=== PATIENT | male | born 1960 | race Caucasian/White ===

== ENCOUNTER 2019-04-03 10:09 | Emergency (ER) | payer BC ==
[2019-04-03] MEDS ORDERED: KETOROLAC 30 MG/ML 1 ML VIAL IM STA (11:01)
--- NOTE | 2019-04-03 11:08 | ED ---
General Adult HPI - General Chief complaint: Back Pain/Injury Stated complaint: back pain Time Seen by Provider: 04/03/19 10:27 Source: patient, RN notes reviewed Mode of arrival: ambulatory Limitations: no limitations - History of Present Illness Initial comments: 59-year-old male with a past medical history of cellulitis, eczema presents to the emergency determine for chief complaint of back pain. Patient states this has been ongoing for several years. States that several years ago he was picking up a bucket of ice when he injured the right lower back. States ever since then he has had right lower back pain on and off. 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 States that he frequently injures his back. States that he is here because he needs a note for work today. Patient states he just had blood work which was normal. States that he has seen primary care for this and was given stretches but has not seen a specialist. Denies any pain radiating in the legs. Denies any bladder or bowel changes. No numbness of the greater buttock. No difficulty ambulate. Patient states pain worsens with movement. States that he believes that his muscle spasms because he feels cramping when he moves. States that if he relaxes pain seems to get better.Patient has no other complaints at this time including shortness of breath, chest pain, abdominal pain, nausea or vomiting, headache, or visual changes. - Related Data Home Medications Medication Instructions Recorded Confirmed Cyclobenzaprine [Flexeril] 10 mg PO TID 04/03/19 04/03/19 Naproxen 500 mg PO BID PRN 04/03/19 04/03/19 Previous Rx's Medication Instructions Recorded Diazepam [Valium] 2 mg PO Q8HR PRN 3 Days #9 tab 04/03/19 Allergies Allergy/AdvReac Type Severity Reaction Status Date / Time No Known Allergies Allergy Verified 04/03/19 10:48 Review of Systems ROS Statement: Those systems with pertinent positive or pertinent negative responses have been documented in the HPI. ROS Other: All systems not noted in ROS Statement are negative. Past Medical History Past Medical History: Skin Disorder Additional Past Medical History / Comment(s): cellulitis r foot, exczema, History of Any Multi-Drug Resistant Organisms: MRSA Date of last positivie culture/infection: 2008 MDRO Source:: LEGS Additional Past Surgical History / Comment(s): LYMPH NODE REMOVEDbenign Past Psychological History: No Psychological Hx Reported Smoking Status: Former smoker Past Alcohol Use History: Occasional Past Drug Use History: None Reported - Past Family History Father Family Medical History: Coronary Artery Disease (CAD), Liver Disease Mother Family Medical History: Myocardial Infarction ([place]) General Exam Limitations: no limitations General appearance: alert, in no apparent distress Head exam: Present: atraumatic, normocephalic, normal inspection Eye exam: Present: normal appearance, PERRL, EOMI. Absent: scleral icterus, conjunctival injection, periorbital swelling ENT exam: Present: normal exam, mucous membranes moist Neck exam: Present: normal inspection, full ROM. Absent: tenderness, meningismus, lymphadenopathy Respiratory exam: Present: normal lung sounds bilaterally. Absent: respiratory distress, wheezes, rales, rhonchi, stridor Cardiovascular Exam: Present: regular rate, normal rhythm, normal heart sounds. Absent: systolic murmur, diastolic murmur, rubs, gallop, clicks Extremities exam: Present: normal capillary refill (Capillary refill less than 2 seconds, DP pulse 2+ in bilateral lower extremities. Patient does have eczema noted however no evidence for infection. States this eczema is chronic.) Back exam: Present: muscle spasm (Right-sided muscle spasm noted above SI joint). Absent: full ROM (Patient has flexion to about 60, pain with extension), tenderness (No significant tenderness over muscle spasm noted right lower back), CVA tenderness (R), CVA tenderness (L), vertebral tenderness (No lumbar or thoracic spine tenderness whatsoever) Neurological exam: Present: alert, oriented X3, CN II-XII intact Psychiatric exam: Present: normal affect, normal mood Course Vital Signs 04/03/19 10:20 Temperature 97.8 F Pulse Rate 107 H Respiratory 16 Rate Blood Pressure 160/84 O2 Sat by Pulse 99 Oximetry Medical Decision Making - Medical Decision Making 59-year-old male presents to the emergency department for a chief complaint of back pain. States this has been chronic for several years. States that this worsened at work when he lifted an 80 pound lid off of the drum. Patient states it is always in the right lower side of his back. Denies difficulty ambulating. States pain worsens with movement. Neurovascular status intact. No red flag symptoms such as bladder or bowel changes, saddle anesthesia, weakne ss of the lower extremities. Patient does have muscle spasm noted on the right lower back. No CVA tenderness. No thoracic or lumbar spine tenderness. No other trauma or falls. Patient states he just needs a note for work. Patient will be given work note as well as Toradol and Valium. Patient will be given a prescription of Valium because he is driving home. Patient will follow up with primary care in 1-2 days as well as environmental permitting specialist. He will return here if he has any worsening symptoms. Disposition Clinical Impression: Mechanical back pain Disposition: HOME SELF-CARE Condition: Good Instructions (If sedation given, give patient instructions): Lower Back E xercises (ED), Acute Low Back Pain (ED) Additional Instructions: Please continue to take naproxen as directed by your primary care provider. Take Valium but do not drive or operate machinery while taking Valium. Follow- up with primary care and Dr. Hannah tomorrow. Return here to the emergency Department if you're having any worsening symptoms including changes in bladder or bowel function or weakness of the lower extremities. Prescriptions: Diazepam [Valium] 2 mg PO Q8HR PRN 3 Days #9 tab PRN Reason: Pain Is patient prescribed a controlled substance at d/c from ED?: No Referrals: Austin Souza MD [Primary Care Provider] - 1-2 days Time of Disposition: 11:08
[2019-04-03 11:29] VITALS: BP 170/100; PULSE 104; RESP 18; TEMP 98.8
== END 2019-04-03 11:25 | disposition home or self-care (01) ==
LOC: EC 10:09
DX: M54.5 Low back pain (principal); M62.830 Muscle spasm of back; Z79.899 Other long term (current) drug therapy; Z87.891 Personal history of nicotine dependence
CPT/HCPCS: 99283; 96372; J1885

== ENCOUNTER 2019-04-13 10:59 | Emergency (ER) | payer BC ==
[2019-04-13] MEDS ORDERED: SODIUM CHLORIDE 0.9% 1,000 ML IV STA ×2 (11:58)
[2019-04-13 12:11] LABS: Basophils % (A) 0 %; Eosinophils # (A) 0.1 k/uL (0-0.7); Eosinophils % (A) 1 %; HCT 38.8 % (39.0-53.0); HGB 12.4 gm/dL (13.0-17.5); Lymphocytes # (A) 1.1 k/uL (1.0-4.8); Lymphocytes % (A) 7 %; MCH 27.7 pg (25.0-35.0); MCV 86.8 fL (80.0-100.0); Mean Platelet Volume 6.5; Monocytes # (A) 0.8 k/uL (0-1.0); Monocytes % (A) 5 %; Neutrophils # (A) 13.1 k/uL (1.3-7.7); Neutrophils % (A) 86 %; Platelet Count 590 k/uL (150-450); RBC 4.48 m/uL (4.30-5.90); RDW 13.2 % (11.5-15.5); WBC 15.3 k/uL (3.8-10.6)
[2019-04-13 12:31] LABS: ALT <6 U/L (21-72); AST 30 U/L (17-59); Alkaline Phosphatase 98 U/L (38-126); Anion Gap 9 mmol/L; Blood Urea Nitrogen 16 mg/dL (9-20); Calcium 9.6 mg/dL (8.4-10.2); Carbon Dioxide 26 mmol/L (22-30); Chloride 100 mmol/L (98-107); Glucose 87 mg/dL (74-99); Lipase 33 U/L (23-300); Phosphorus 3.2 mg/dL (2.5-4.5); Sodium 135 mmol/L (137-145); Total Bilirubin 0.9 mg/dL (0.2-1.3); Total Protein 8.3 g/dL (6.3-8.2)
[2019-04-13 12:37] LABS: Potassium 4.6 mmol/L (3.5-5.1)
--- NOTE | 2019-04-13 12:52 | ED ---
Abdominal Pain HPI - General Chief Complaint: Recheck/Abnormal Lab/Rx Stated Complaint: Rib Pain Time Seen by Provider: 04/13/19 11:00 Source: patient, RN notes reviewed, old records reviewed Mode of arrival: EMS - History of Present Illness Initial Comments: This is a 51-year-old male the ER for evaluation. Patient complaining of right- sided hip pain right-sided lower back pain abdominal pain and back pain. Patient states he does have history of back pain. There has a mechanical injury about 2 weeks ago which she believes increases pain in his lower back. His pain is getting progressively worse with some tingling in his leg. Denies specific trauma, thinks injury was lifting related. Denies any complaints of fevers no IV drug abuse no history of tattoos. Patient was seen in this emergency room about 10 days ago given medication to help with symptoms, symptoms are worsening. Patient is also been doing physical rehabilitation, trying to return to work. Patient states is symptoms are not improving. Just continuing to progress, worsen. Patient has no loss of bowel or bladder. MD Complaint: abdominal pain, flank pain (Right lower flank pain right back pain), other (Back pain and abdominal pain) -: week(s) Location: RLQ, R flank Radiation: back (Thoracic back) Migration to: epigastric Severity: moderate Severity scale (1-10): 4 Quality: cramping, aching, fullness Consistency: constant Improves With: nothing Worsens With: movement Context: recent injury (Lifting injury) Associated Symptoms: other (Tingling in left leg, rib pain right-sided) - Related Data Home Medications Medication Instructions Recorded Confirmed Cyclobenzaprine [Flexeril] 10 mg PO TID PRN 04/03/19 04/13/19 Acetaminophen [Tylenol 8 Hour] 650 mg PO Q8H PRN 04/13/19 04/13/19 Allergies Allergy/AdvReac Type Severity Reaction Status Date / Time No Known Allergies Allergy Verified 04/13/19 11:07 Review of Systems ROS Statement: Those systems with pertinent positive or pertinent negative responses have been documented in the HPI. ROS Other: All systems not noted in ROS Statement are negative. Past Medical History Past Medical History: Skin Disorder Additional Past Medical History / Comment(s): cellulitis r foot, exczema, History of Any Multi-Drug Resistant Organisms: MRSA Date of last positivie culture/infection: 2008 MDRO Source:: LEGS Additional Past Surgical History / Comment(s): LYMPH NODE REMOVEDbenign Past Psychological History: No Psychological Hx Reported Smoking Status: Former smoker Past Alcohol Use History: Occasional Past Drug Use History: None Reported - Past Family History Father Family Medical History: Coronary Artery Disease (CAD), Liver Disease Mother Family Medical History: Myocardial Infarction ([place]) General Exam General appearance: alert, in no apparent distress Head exam: Present: atraumatic, normocephalic, normal inspection Eye exam: Present: normal appearance, PERRL, EOMI. Absent: scleral icterus, conjunctival injection, periorbital swelling ENT exam: Present: normal exam, mucous membranes moist Neck exam: Present: normal inspection. Absent: tenderness, meningismus, lymphad enopathy Respiratory exam: Present: normal lung sounds bilaterally. Absent: respiratory distress, wheezes, rales, rhonchi, stridor Cardiovascular Exam: Present: normal rhythm, tachycardia, normal heart sounds. Absent: systolic murmur, diastolic murmur, rubs, gallop, clicks GI/Abdominal exam: Present: soft, normal bowel sounds. Absent: distended, tenderness, guarding, rebound, rigid Extremities exam: Present: normal inspection, full ROM, normal capillary refill. Absent: tenderness, pedal edema, joint swelling, calf tenderness Back exam: Present: normal inspection Neurological exam: Present: alert, oriented X3, CN II-XII intact Psychiatric exam: Present: normal affect, normal mood Skin exam: Present: warm, dry, intact, normal color. Absent: rash Course Vital Signs 04/13/19 04/13/19 04/13/19 11:01 11:03 11:30 Temperature 98.1 F Pulse Rate 102 H 101 H 102 H Respiratory 16 14 17 Rate Blood Pressure 161/89 161/89 161/89 O2 Sat by Pulse 97 98 96 Oximetry 04/13/19 04/13/19 04/13/19 12:00 12:30 13:00 Temperature Pulse Rate 99 95 Respiratory 28 H 18 Rate Blood Pressure 159/91 156/94 162/90 O2 Sat by Pulse 97 97 Oximetry 04/13/19 13:28 Temperature Pulse Rate 100 Respiratory 18 Rate Blood Pressure 155/99 O2 Sat by Pulse 98 Oximetry - Reevaluation(s) Reevaluation #1: 04/13/19 14:08 Medical record including prior ER ER visit is reviewed Reevaluation #2: 04/13/19 14:08 Spoke with radiology regarding findings of CAT scan, his findings are spoken with the patient, questions are answered Reevaluation #3: 04/13/19 14:08 Patient with adequate pain control currently Reevaluation #4: 04/13/19 14:08 No neurological findings noted Medical Decision Making - Medical Decision Making 51-year-old man the ER for evaluation of back pain rib pain hip pain. Left- sided tingling. Symptoms for a few weeks now. No help with rehabilitation, patient's found to have Significant T8-T9 paravertebral abscess with discitis, patient replace on broad-spectrum antibiotics transferred for neurosurgical evaluation - Lab Data Result diagrams: 04/13/19 11:07 04/13/19 11:07 Lab Results 04/13/19 04/13/19 04/13/19 Range/Units 11:07 11:07 11:07 WBC 15.3 H (3.8-10.6) k/uL RBC 4.48 (4.30-5.90) m/uL Hgb 12.4 L (13.0-17.5) gm/dL Hct 38.8 L (39.0-53.0) % MCV 86.8 (80.0-100.0) fL MCH 27.7 (25.0-35.0) pg MCHC 32.0 (31.0-37.0) g/dL RDW 13.2 (11.5-15.5) % Plt Count 590 H (150-450) k/uL Neutrophils % 86 % Lymphocytes % 7 % Monocytes % 5 % Eosinophils % 1 % Basophils % 0 % Neutrophils # 13.1 H (1.3-7.7) k/uL Lymphocytes # 1.1 (1.0-4.8) k/uL Monocytes # 0.8 (0-1.0) k/uL Eosinophils # 0.1 (0-0.7) k/uL Basophils # 0.0 (0-0.2) k/uL Sodium 135 L (137-145) mmol/L Potassium 4.6 (3.5-5.1) mmol/L Chloride 100 (98-107) mmol/L Carbon Dioxide 26 (22-30) mmol/L Anion Gap 9 mmol/L BUN 16 (9-20) mg/dL Creatinine 0.73 (0.66-1.25) mg/dL Est GFR (CKD-EPI)AfAm >90 (>60 ml/min/1.73 sqM) Est GFR (CKD-EPI)NonAf >90 (>60 ml/min/1.73 sqM) Glucose 87 (74-99) mg/dL Calcium 9.6 (8.4-10.2) mg/dL Phosphorus 3.2 (2.5-4.5) mg/dL Magnesium 2.0 (1.6-2.3) mg/dL Total Bilirubin 0.9 (0.2-1.3) mg/dL AST 30 (17-59) U/L ALT <6 L (21-72) U/L Alkaline Phosphatase 98 (38-126) U/L Troponin I <0.012 (0.000-0.034) ng/mL Total Protein 8.3 H (6.3-8.2) g/dL Albumin 4.0 (3.5-5.0) g/dL Lipase 33 (23-300) U/L - EKG Data -: EKG Interpreted by Me (EKG shows sinus rhythm rate of 96, OK 140, QRS 104, QTC 480) - Radiology Data Radiology results: report reviewed (CT chest abd pelvis shows diskitis, osteomyelitis, T8-9), image reviewed Disposition Clinical Impression: Discitis thoracic region, Osteomyelitis of thoracic spine, Epidural abscess Disposition: OTHER INSTITUTION NOT DEFINED Condition: Fair Is patient prescribed a controlled substance at d/c from ED?: No Referrals: Austin Souza MD [Primary Care Provider] - 1-2 days - Out of Hospital Transfer - Req. Specs Out of Hospital Transfer - Requested Specifics: Other Emergency Center ([facility])
[2019-04-13] MEDS ORDERED: PIPERACILLIN-TAZOBACTAM 3.375 GM in SODIUM CHLORIDE 0.9% 100 ML IVPB STA (13:42)
[2019-04-13] MEDS ORDERED: VANCOMYCIN IV PER PHARMACY 1 EACH MISC MISCELLANE PRN (13:42)
--- NOTE | 2019-04-13 13:42 | CT ---
EXAMINATION TYPE: CT ChestAbdPelvis w con DATE OF EXAM: 04/13/2019 COMPARISON: [facility] chest dated 08/05/2015 HISTORY: Upper Abdominal pain for 4-[address] DLP: 765.4 mGycm. Automated Exposure Control for Dose Reduction was Utilized. CONTRAST: CT scan of the thorax, abdomen and pelvis is performed with IV Contrast, patient injected with 100 mL of Isovue 300. FINDINGS: LUNGS: Azygos lobe is incidentally noted. Moderate centrilobular emphysema is seen. Bibasilar subsegm ental dependent atelectasis is present. The lungs are grossly clear, there is no concerning parenchym al mass or nodule identified. There is no pleural effusion or pneumothorax seen. The tracheobronch ial tree is patent. MEDIASTINUM: There are no greater than 1 cm hilar or mediastinal lymph nodes. No pericardial effusi on is seen. Moderate coronary calcifications are present. LIVER/GB: Geographic area of hypoattenuation is seen near the fissure for the falciform ligament, mos t commonly related to focal fatty infiltration. More diffuse mild degree hepatic steatosis is seen as there is low-attenuation of the hepatic parenchyma, limiting evaluation for hepatic masses. No leonid lithiasis is seen. PANCREAS: No significant abnormality is seen. SPLEEN: No significant abnormality is seen. ADRENALS: No significant abnormality is seen. KIDNEYS: There is a right lower pole exophytic 1.2 cm renal cyst. The kidneys enhance and excrete sym metrically without hydronephrosis. BOWEL: Numerous foci of air in the low pelvis appear to be intraluminal within bowel when correlated with coronal and sagittal images but would be better evaluated with contrast. There is diffuse thicke paola and hyperemia on the catheter body and fundus. GENITAL ORGANS: Prostate gland is heterogenous throughout. LYMPH NODES: Mildly enlarged right superficial inguinal lymph node measures 1.1 cm in short axis. OSSEOUS STRUCTURES: There is evidence of osteomyelitis/discitis of the T8-T9 intervertebral disc spac e with erosion of the endplates and small paravertebral abscess. The small fluid collection within th e right paravertebral space measures up to 1 cm and phlegmonous changes measuring up to 4 cm. Moderate multilevel degenerative changes throughout the spine are additionally present. OTHER: Extensive atherosclerosis of the abdominal aorta and its branches. IMPRESSION: 1. Osteomyelitis/discitis at T8-T9 with right paravertebral abscess measuring 1 cm and surrounding ph legmonous changes measuring 4 cm. Finding discussed with Cosme Espinoza at 1329 who will relay findings to Dr. Trent. 2. There are numerous foci of air in the low pelvis that appear to be within cluster loops of small b owel however CT pelvis with oral contrast is recommended to ensure no small foci of pneumoperitoneum. 3. Diffuse thickening of the stomach may relate to incomplete distention, gastritis or other etiology .
[2019-04-13] MEDS ORDERED: VANCOMYCIN 1,500 MG in SODIUM CHLORIDE 0.9% 250 ML IVPB STA (13:48)
[2019-04-13 16:17] VITALS: TEMP 98.4
[2019-04-13 17:59] VITALS: BP 150/84; PULSE 110; RESP 18
[2019-04-14] MEDS ORDERED: VANCOMYCIN 1,250 MG in SODIUM CHLORIDE 0.9% 250 ML IVPB SCH ×2
== END 2019-04-13 17:59 | disposition other institution (70) ==
LOC: EC 10:59
DX: M46.44 Discitis, unspecified, thoracic region (principal); M46.24 Osteomyelitis of vertebra, thoracic region; G06.2 Extradural and subdural abscess, unspecified; Z87.891 Personal history of nicotine dependence
CPT/HCPCS: 36415; 93005; 80053; 85652; 83690; 83735; 84100; 84484; 85025; 86140; 87040; 71260; 74177; 99285; 96365; 96367; 96366; 96361 ×3; J2543; J3370; Q9967

== ENCOUNTER → 2019-07-05 | Outpatient (CLI) | payer BC ==
[2019-07-05 12:27] LABS: Basophils # (A) 0.1 k/uL (0-0.2); Basophils % (A) 2 %; Eosinophils # (A) 0.7 k/uL (0-0.7); Eosinophils % (A) 11 %; HCT 44.2 % (39.0-53.0); HGB 14.5 gm/dL (13.0-17.5); Lymphocytes # (A) 1.2 k/uL (1.0-4.8); Lymphocytes % (A) 18 %; MCH 30.1 pg (25.0-35.0); MCHC 32.7 g/dL (31.0-37.0); MCV 91.9 fL (80.0-100.0); Mean Platelet Volume 6.3; Monocytes # (A) 0.5 k/uL (0-1.0); Monocytes % (A) 8 %; Neutrophils # (A) 3.9 k/uL (1.3-7.7); Neutrophils % (A) 58 %; Platelet Count 292 k/uL (150-450); RBC 4.81 m/uL (4.30-5.90); RDW 13.8 % (11.5-15.5); WBC 6.6 k/uL (3.8-10.6)
[2019-07-05 15:01] LABS: Erythrocyte Sedimentation Rate 8 mm/hr (0-15)
[2019-07-05 18:57] LABS: African American GFR (CKD) 85.3 (60.0-200.0); Anion Gap 6.8 mmol/L (4.00-12.00); BUN/Creat Ratio 24.55 Ratio (12.00-20.00); C Reactive Protein 0.5 mg/dL (0.0-0.8); Calcium 9.9 mg/dL (8.7-10.3); Carbon Dioxide 26.2 mmol/L (21.6-31.8); Non-African American GFR(CKD) 73.6 (60.0-200.0); Potassium 4.8 mmol/L (3.5-5.5)
== END | disposition home or self-care (01) ==
LOC: LABWHC1 11:33
PROVIDERS: ATTEND Internal Medicine Infectious Disease
DX: M46.20 Osteomyelitis of vertebra, site unspecified (principal)
CPT/HCPCS: 36415; 80048; 85025; 85652; 86140

== ENCOUNTER 2021-10-21 07:19 | Day surgery (SDC) | payer BC ==
[2021-10-16 13:08] VITALS: BMI 24.4
[2021-10-21 08:10] VITALS: RESP 18; TEMP 97.4
[2021-10-21] MEDS ORDERED: SODIUM CHLORIDE 0.9% 500 ML 500 ML IV ONE (08:10)
[2021-10-21] MEDS: BENZOCAINE SPRAY 1 CAN MUCOUS MEM ONE ×2 (09:06→09:10)
[2021-10-21] MEDS ORDERED: MIDAZOLAM 2 MG/2 ML VIAL IV ONE (09:10)
[2021-10-21] MEDS ORDERED: fentaNYL (PF) 50 MCG/ML 2 ML AMP IV ONE (09:10)
[2021-10-21 10:21] VITALS: BP 146/64; PULSE 67
--- NOTE | 2021-10-22 08:23 | ECHOT ---
TRANSESOPHAGEAL ECHOCARDIOGRAM INDICATION: Aortic regurgitation. PROCEDURE NOTE: After obtaining informed consent, transesophageal echocardiogram is performed in left lateral position using an Omniplane probe. Local and IV sedation was obtained using Xylocaine spray, intravenous Versed and fentanyl. Patient tolerated the procedure well without any obvious immediate complications. Patient received moderate conscious sedation. Total sedation time was 10 minutes. Color Doppler, 2D spectral analysis has been performed. FINDINGS: 1. Aortic valve is a 3-leaflet valve and appears calcified and thickened with mild prolapse at the non-coronary cusp. There is severe aortic regurgitation noted. There is mild aortic stenosis with a valve area of 1.3 cm2 by planimetry. Aortic root measures about 3.6 cm. Mitral valve shows mild mitral regurgitation. Tricuspid valve shows mild tricuspid regurgitation. 2. There is no [id number] shunt by color-flow Doppler, but there is evidence of [id number] shunt by agitated saline contrast study. 3. Left atrium appears mildly enlarged. Right atrium and right ventricle seem within normal limits. Left ventricle has normal size and systolic function. CONCLUSIONS: 1. 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 2. Left ventricle has normal size and systolic function. 3. There is mild mitral regurgitation noted. MMODL / IJN: [id number] /
== END 2021-10-21 10:30 | disposition home or self-care (01) ==
LOC: CATHCVL 07:19
PROVIDERS: ATTEND Internal Medicine Cardiovascular Disease
DX: I08.3 Combined rheumatic disorders of mitral, aortic and tricuspid valves (principal); Z20.822 Contact with and (suspected) exposure to COVID-19; I10 Essential (primary) hypertension; Z82.49 Family history of ischemic heart disease and other diseases of the circulatory system; Z72.0 Tobacco use; Z79.899 Other long term (current) drug therapy
CPT/HCPCS: 93312; 93320; 93325; 87635; J2250; J3010

== ENCOUNTER 2024-04-02 14:37 | Emergency (ER) | payer BC ==
[2024-04-02 15:18] VITALS: RESP 18
[2024-04-02] MEDS: LIDOCAINE 4% PATCH TOPICAL ONE (15:49)
[2024-04-02] MEDS: KETOROLAC 15 MG/ML 1 ML VIAL IVP STA (15:50)
--- NOTE | 2024-04-02 15:50 | ED ---
Back Pain HPI - General Chief Complaint: Back Pain/Injury Stated Complaint: low back pain Time Seen by Provider: 04/02/24 15:08 Source: patient, RN notes reviewed Mode of arrival: ambulatory Limitations: no limitations - History of Present Illness Initial Comments: This is a 64-year-old male who presents to the emergency department for low back pain. Symptoms started 3 days ago. Denies any injuries but states that he does a lot of bending and lifting. Denies any loss of bowel/bladder control or saddle anesthesia. He saw his primary care provider when symptoms began 3 days ago and was started on muscle relaxants and steroids. He also had an x-ray that he states was unremarkable. Does not believe that he has been getting any worse, but states that he is not improving. He was subsequently advised to come to the emergency department for further evaluation. He is concerned that he had a spinal abscess removed several years ago and wants to make sure that it is not recurring. This was in the thoracic spine. Denies any fevers/chills. - Related Data Home Medications Medication Instructions Recorded Confirmed carvediloL [Coreg] 12.5 mg PO BID 10/16/21 10/21/21 Previous Rx's Medication Instructions Recorded Ketorolac [Toradol] 10 mg PO Q6HR PRN #15 tab 04/02/24 Lidocaine 5% Patch [Lidoderm 5% 1 patch TOPICAL DAILY PRN #30 patch 04/02/24 Patch] Orphenadrine [Norflex] 100 mg PO Q12H PRN #20 tab 04/02/24 Allergies Allergy/AdvReac Type Severity Reaction Status Date / Time No Known Allergies Allergy Verified 04/02/24 14:41 Review of Systems ROS Statement: Those systems with pertinent positive or pertinent negative responses have been documented in the HPI. ROS Other: All systems not noted in ROS Statement are negative. Past Medical History Past Medical History: Hypertension, Osteoarthritis (OA), Skin Disorder, Sleep Apnea/CPAP/BIPAP Additional Past Medical History / Comment(s): exczema, heart murmur, hx. of endocarditis 2014, used to use CPAP, hx. of gastric ulcer History of Any Multi-Drug Resistant Organisms: MRSA Date of last positivie culture/infection: 2018 MDRO Source:: spine Past Surgical History: Back Surgery Additional Past Surgical History / Comment(s): LYMPH NODE REMOVEDbenign, had spinal/back surgery related to MRSA infection, surg. for gastric ulcer Past Anesthesia/Blood Transfusion Reactions: No Reported Reaction Past Psychological History: No Psychological Hx Reported Smoking Status: Current every day smoker Past Alcohol Use History: Occasional Past Drug Use History: None Reported - Past Family History Father Family Medical History: Coronary Artery Disease (CAD), Liver Disease Mother Family Medical History: Myocardial Infarction (AL) General Exam Limitations: no limitations General appearance: alert, in no apparent distress Head exam: Present: atraumatic, normocephalic, normal inspection Respiratory exam: Present: normal lung sounds bilaterally. Absent: respiratory distress, wheezes, rales, rhonchi, stridor Cardiovascular Exam: Present: regular rate, normal rhythm, normal heart sounds. Absent: systolic murmur, diastolic murmur, rubs, gallop, clicks Back exam: Present: tenderness (Lower lumbar spine) Neurological exam: Present: alert, oriented X3, CN II-XII intact Psychiatric exam: Present: normal affect, normal mood Skin exam: Present: warm, dry, intact, normal color. Absent: rash Course Vital Signs 04/02/24 04/02/24 14:38 17:25 Temperature 98.2 F Pulse Rate 95 83 Respiratory 18 18 Rate Blood Pressure 204/120 164/90 O2 Sat by Pulse 99 96 Oximetry Medical Decision Making - Medical Decision Making This is a 64 year old male who presents to the emergency department for lower back pain. Was pt. sent in by a medical professional or institution? @ -No Did you speak to anyone other than the patient for history? @ -No Did you review nursing and triage notes? @ -Yes, and I agree, it is accurate with regards to the patient's symptoms. Were old charts reviewed? @ -No Differential Diagnosis? @ -Differential Back Pain: Strain, zoster, cauda equina syndrome, epidural abscess, vertebral osteomyel itis, discitis, fracture, subluxation, disc herniation, DJD, spinal stenosis, dissection, AAA, pancreatitis, peptic ulcer disease, pyelonephritis, kidney stone, this is not meant to be an all-inclusive list. EKG interpreted by me (3pts min.)? @ -Not obtained X-rays interpreted by me (1pt min.)? @ -Not obtained CT interpreted by me (1pt min.)? @ -CT scan of the lumbar spine obtained. My interpretation identifies no acute fractures. U/S interpreted by me (1pt. min.)? @ -Not obtained What testing was considered but not performed? (CT, X-rays, U/S, labs)? Why? @ -None What meds were considered but not given? Why? @ -None Did you discuss the management of the patient with other professionals? @ -No Did you reconcile home meds? @ -No Was smoking cessation discussed for >3mins.? @ -No Was critical care preformed (if so, how long)? @ -No Were there social determinants of health that impacted care today? How? (Homelessness, low income, unemployed, alcoholism, drug addiction, transportation, low edu. Level, literacy, decrease access to med. care, penitentiary, rehab)? @ -No Was there de-escalation of care discussed even if they declined? (Discuss DNR or withdrawal of care, Hospice)? @ -No What co-morbidities impacted this encounter? (DM, HTN, Smoking, COPD, CAD, Cancer, CVA, Hep., AIDS, mental health diagnosis, sleep apnea, morbid obesity)? @ -Osteoarthritis Was patient admitted / discharged? @ -Discharged. Lab work demonstrates mild leukocytosis and a mild elevation in CRP. CT scan of the lumbar spine obtained demonstrating no evidence of vertebral compression or collapse. There are also no specific findings of discitis osteomyelitis at this time. He does have multiple degenerative changes which we discussed is likely contributing to his pain. Patient treated with Toradol, Decadron, Norflex, and a lidocaine patch with significant relief in symptoms. Discussed changing at home medications to see if that is more ef fective. Patient requested to proceed with Norflex as provided here which he felt was much more beneficial than the Flexeril he has at home. Prescription for Toradol, Norflex, and lidocaine patches provided with dosing instructions reviewed. Advised close follow-up with his primary care provider. Patient discharged home in stable condition. Undiagnosed new problem with uncertain prognosis? @ -None Drug Therapy requiring intensive monitoring for toxicity (Heparin, Nitro, Insulin, Cardizem)? @ -None Were any procedures done? @ -None Diagnosis/symptom? @ -Lumbar strain Acute, or Chronic, or Acute on Chronic? @ -Acute Uncomplicated (without systemic symptoms) or Complicated (systemic symptoms)? @ -Uncomplicated Side effects of treatment? @ -None Exacerbation, Progression, or Severe Exacerbation] @ -Not applicable Poses a threat to life or bodily function? @ -No Return precautions reviewed in depth, the patient is instructed to return to the emergency department with any new, worsening, or concerning symptoms. Patient verbalized understanding. This case was discussed in detail with the attending ED physician, Dr. Parham. Presentation, findings, and treatment plan discussed in detail as well. - Lab Data Result diagrams: 04/02/24 15:44 04/02/24 15:44 Lab Results 04/02/24 04/02/24 04/02/24 Range/Units 15:44 15:44 15:44 WBC 12.0 H (3.8-10.6) k/uL RBC 5.13 (4.30-5.90) m/uL Hgb 15.7 (13.0-17.5) gm/dL Hct 47.8 (39.0-53.0) % MCV 93.1 (80.0-100.0) fL MCH 30.5 (25.0-35.0) pg MCHC 32.8 (31.0-37.0) g/dL RDW 12.6 (11.5-15.5) % Plt Count 203 (150-450) k/uL MPV 6.8 Neutrophils % 83 % Lymphocytes % 7 % Monocytes % 7 % Eosinophils % 1 % Basophils % 0 % Neutrophils # 10.0 H (1.3-7.7) k/uL Lymphocytes # 0.9 L (1.0-4.8) k/uL Monocytes # 0.8 (0-1.0) k/uL Eosinophils # 0.1 (0-0.7) k/uL Basophils # 0.0 (0-0.2) k/uL Sodium 132 L (137-145) mmol/L Potassium 4.6 (3.5-5.1) mmol/L Chloride 101 (98-107) mmol/L Carbon Dioxide 21 L (22-30) mmol/L Anion Gap 10 mmol/L BUN 18 (9-20) mg/dL Creatinine 0.78 (0.66-1.25) mg/dL Est GFR (CKD-EPI)AfAm >90 (>60 ml/min/1.73 sqM) Est GFR (CKD-EPI)NonAf >90 (>60 ml/min/1.73 sqM) Glucose 81 (74-99) mg/dL Plasma Lactic Acid Arjun 1.1 (0.7-2.0) mmol/L Calcium 9.1 (8.4-10.2) mg/dL Total Bilirubin 1.1 (0.2-1.3) mg/dL AST 27 (17-59) U/L ALT 17 (4-49) U/L Alkaline Phosphatase 51 (38-126) U/L C-Reactive Protein 5.9 H (<1.0) mg/dL Total Protein 7.6 (6.3-8.2) g/dL Albumin 4.2 (3.5-5.0) g/dL Urine Color Urine Appearance (Clear) Urine pH (5.0-8.0) Ur Specific Willis (1.001-1.035) Urine Protein (Negative) Urine Glucose (UA) (Negative) Urine Ketones (Negative) Urine Blood (Negative) Urine Nitrite (Negative) Urine Bilirubin (Negative) Urine Urobilinogen (<2.0) mg/dL Ur Leukocyte Esterase (Negative) 04/02/24 Range/Units 17:04 WBC (3.8-10.6) k/uL RBC (4.30-5.90) m/uL Hgb (13.0-17.5) gm/dL Hct (39.0-53.0) % MCV (80.0-100.0) fL MCH (25.0-35.0) pg MCHC (31.0-37.0) g/dL RDW (11.5-15.5) % Plt Count (150-450) k/uL MPV Neutrophils % % Lymphocytes % % Monocytes % % Eosinophils % % Basophils % % Neutrophils # (1.3-7.7) k/uL Lymphocytes # (1.0-4.8) k/uL Monocytes # (0-1.0) k/uL Eosinophils # (0-0.7) k/uL Basophils # (0-0.2) k/uL Sodium (137-145) mmol/L Potassium (3.5-5.1) mmol/L Chloride (98-107) mmol/L Carbon Dioxide (22-30) mmol/L Anion Gap mmol/L BUN (9-20) mg/dL Creatinine (0.66-1.25) mg/dL Est GFR (CKD-EPI)AfAm (>60 ml/min/1.73 sqM) Est GFR (CKD-EPI)NonAf (>60 ml/min/1.73 sqM) Glucose (74-99) mg/dL Plasma Lactic Acid Arjun (0.7-2.0) mmol/L Calcium (8.4-10.2) mg/dL Total Bilirubin (0.2-1.3) mg/dL AST (17-59) U/L ALT (4-49) U/L Alkaline Phosphatase (38-126) U/L C-Reactive Protein (<1.0) mg/dL Total Protein (6.3-8.2) g/dL Albumin (3.5-5.0) g/dL Urine Color Colorless Urine Appearance Clear (Clear) Urine pH 6.5 (5.0-8.0) Ur Specific Willis 1.006 (1.001-1.035) Urine Protein Negative (Negative) Urine Glucose (UA) Negative (Negative) Urine Ketones Negative (Negative) Urine Blood Negative (Negative) Urine Nitrite Negative (Negative) Urine Bilirubin Negative (Negative) Urine Urobilinogen <2.0 (<2.0) mg/dL Ur Leukocyte Esterase Negative (Negative) - Radiology Data Radiology results: report reviewed, image reviewed Disposition Clinical Impression: Strain of lumbar region Disposition: HOME SELF-CARE Instructions (If sedation given, give patient instructions): Acute Low Back Pain (ED) Additional Instructions: Return to the emergency department with any new, worsening, or concerning symptoms. Take the Toradol with Tylenol as needed for pain relief. If you choose to take the Toradol, do not take any other anti-inflammatories such as ibuprofen, take one or the other. You can try taking the Norflex twice daily in place of the cyclobenzaprine, the other muscle relaxant you were prescribed. However, if you find the cyclobenzaprine was more effective, you can begin taking that one again instead. Avoid taking them together and be aware that they will make you drowsy. You can also apply the lidocaine patches daily. Follow up with your primary care provider in 1-2 days. Prescriptions: Lidocaine 5% Patch [Lidoderm 5% Patch] 1 patch TOPICAL DAILY PRN #30 patch PRN Reason: Pain Orphenadrine [Norflex] 100 mg PO Q12H PRN #20 tab PRN Reason: Pain Ketorolac [Toradol] 10 mg PO Q6HR PRN #15 tab PRN Reason: Pain Is patient prescribed a controlled substance at d/c from ED?: No Referrals: Austin Souza MD [Primary Care Provider] - 1-2 days Time of Disposition: 18:39
[2024-04-02] MEDS: DEXAMETHASONE SOD PHOSPHATE 10 MG/ML 1 ML VIAL IVP STA (15:53)
[2024-04-02 15:54] LABS: Basophils % (A) 0 %; Eosinophils # (A) 0.1 k/uL (0-0.7); Eosinophils % (A) 1 %; HCT 47.8 % (39.0-53.0); HGB 15.7 gm/dL (13.0-17.5); Lymphocytes # (A) 0.9 k/uL (1.0-4.8); Lymphocytes % (A) 7 %; MCH 30.5 pg (25.0-35.0); MCHC 32.8 g/dL (31.0-37.0); MCV 93.1 fL (80.0-100.0); Mean Platelet Volume 6.8; Monocytes # (A) 0.8 k/uL (0-1.0); Monocytes % (A) 7 %; Neutrophils % (A) 83 %; Platelet Count 203 k/uL (150-450); RBC 5.13 m/uL (4.30-5.90); RDW 12.6 % (11.5-15.5)
[2024-04-02] MEDS: ORPHENADRINE 30 MG/ML 2 ML VIAL IVP STA (15:54)
[2024-04-02 16:11] LABS: ALT 17 U/L (4-49); African American GFR (CKD) >90 (>60 ml/min/1.73 sqM); Anion Gap 10 mmol/L; Blood Urea Nitrogen 18 mg/dL (9-20); C Reactive Protein 5.9 mg/dL (<1.0); Calcium 9.1 mg/dL (8.4-10.2); Carbon Dioxide 21 mmol/L (22-30); Chloride 101 mmol/L (98-107); Glucose 81 mg/dL (74-99); Non-African American GFR(CKD) >90 (>60 ml/min/1.73 sqM); Sodium 132 mmol/L (137-145); Total Bilirubin 1.1 mg/dL (0.2-1.3)
[2024-04-02 16:20] LABS: AST 27 U/L (17-59); Albumin 4.2 g/dL (3.5-5.0); Alkaline Phosphatase 51 U/L (38-126); Potassium 4.6 mmol/L (3.5-5.1); Total Protein 7.6 g/dL (6.3-8.2)
[2024-04-02 17:28] LABS: Appearance,Urine Clear (Clear); Bilirubin,Urine Negative (Negative); Blood,Urine Negative (Negative); Color,Urine Colorless; Glucose,Urine (UA) Negative (Negative); Ketones,Urine Negative (Negative); Leukocyte Esterase,Urine Negative (Negative); Nitrite,Urine Negative (Negative); PH, Urine 6.5 (5.0-8.0); Protein,Urine Negative (Negative); Specific Gravity,Urine 1.006 (1.001-1.035); Urobilinogen,Urine <2.0 mg/dL (<2.0)
--- NOTE | 2024-04-02 18:28 | CT ---
EXAMINATION TYPE: CT lumbar spine w con DATE OF EXAM: 04/02/2024 COMPARISON: 08/07/2013 HISTORY: 64-year-old male Pain, hx of osteomyelitis with spinal abscess TECHNIQUE: Contiguous axial scanning of the lumbar spine performed with IV Contrast, patient injected with 100 mL of Isovue 300. Delayed images through the kidneys were obtained. Coronal/sagittal recons tructions performed. CT DLP: 686 mGycm Automated exposure control for dose reduction was used. FINDINGS: There is a small hiatal hernia. 2.1 cm cortical cyst posterior right kidney. Degenerative spurring at the bilateral SI joints. 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 Superimposed mild and moderate degenerative disc disease with desiccated, narrowed, and bulging discs . Scattered ligamentum flavum thickening and hypertrophic facet arthropathy is also present. Degenerative trace grade 1 retrolisthesis L3-L4. Remaining alignment is maintained. Vertebral body he ights are preserved. No endplate destruction is identified. Bulging disks contribute to a mild overall spinal canal stenosis at L2/L3, at least moderate at L3-L4 , possible severe at L4-L5 and [id number] at L5-S1. On the left, changes result in moderate neural foraminal stenoses from L2 through S1 levels.. On the right, changes result in moderate neural foraminal stenoses from L3 through S1 levels. Disc osteophyte complex may abuts the exiting bilateral L5 nerve roots at L5-S1 and the extraforamina l left L4 nerve root at L4-L5 IMPRESSION: 1. NO VERTEBRAL COMPRESSION COLLAPSE. NO SPECIFIC FINDINGS OF DISCITIS OSTEOMYELITIS AT THIS TIME. TH ERE IS HYPERTROPHIC FACET ARTHROPATHY WITH DEGENERATIVE GRADE 1 RETROLISTHESIS AT L3-L4. 2. 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 3. CHANGES RESULT IN POSSIBLE SEVERE SPINAL CANAL STENOSIS AT L4-L5, AT LEAST MODERATE AT L3-L4, MILD -TO-MODERATE AT L5-S1, AND MILD AT L2-L3. 4. VARIABLE MODERATE NEUROFORAMINAL STENOSES OUTLINED ABOVE. 5. DISC OSTEOPHYTE COMPLEX MAY ABUT THE EXITING BILATERAL L5 NERVE ROOTS AT L5-S1 WELL THE EXTR AFORAMINAL LEFT L4 NERVE ROOT AT L4-L5. 6. BAASTRUP'S DISEASE.
[2024-04-02] MEDS: traMADol 50 MG STARTER PACK 3 TAB BTL PO STA (18:51)
[2024-04-02 19:17] VITALS: BP 190/90; PULSE 66; TEMP 98.1
== END 2024-04-02 18:55 | disposition home or self-care (01) ==
LOC: EC 14:37
DX: S39.012A Strain of muscle, fascia and tendon of lower back, initial encounter (principal); F17.200 Nicotine dependence, unspecified, uncomplicated; X50.0XXA Overexertion from strenuous movement or load, initial encounter
CPT/HCPCS: 36415; 80053; 83605; 85025; 86140; 81003; 72132; 99284; 96374; 96375 ×2; J1100; J2360; J1885; Q9967

== ENCOUNTER 2024-04-08 17:53 | Inpatient (IN) | payer BC ==
[2024-04-08] MEDS: ACETAMINOPHEN TAB 500 MG TAB PO STA (18:22)
[2024-04-08] MEDS: SODIUM CHLORIDE 0.9% 1,000 ML IV STA ×4 (18:22→20:36)
[2024-04-08] MEDS: IBUPROFEN 600 MG TAB PO STA (18:22)
[2024-04-08 19:02] LABS: Basophils % (A) 0 %; Eosinophils % (A) 0 %; HGB 14.2 gm/dL (13.0-17.5); Lymphocytes # (A) 0.2 k/uL (1.0-4.8); Lymphocytes % (A) 2 %; MCH 30.7 pg (25.0-35.0); MCHC 34.6 g/dL (31.0-37.0); MCV 88.8 fL (80.0-100.0); Mean Platelet Volume 7.5; Monocytes # (A) 1.1 k/uL (0-1.0); Monocytes % (A) 8 %; Neutrophils # (A) 11.7 k/uL (1.3-7.7); Neutrophils % (A) 90 %; Platelet Count 186 k/uL (150-450); RBC 4.62 m/uL (4.30-5.90); RDW 12.5 % (11.5-15.5)
[2024-04-08 19:12] LABS: ALT 50 U/L (4-49); AST 94 U/L (17-59); African American GFR (CKD) 54 (>60 ml/min/1.73 sqM); Albumin 3.3 g/dL (3.5-5.0); Alkaline Phosphatase 141 U/L (38-126); Anion Gap 12 mmol/L; Blood Urea Nitrogen 26 mg/dL (9-20); Calcium 8.4 mg/dL (8.4-10.2); Carbon Dioxide 18 mmol/L (22-30); Chloride 91 mmol/L (98-107); Glucose 98 mg/dL (74-99); INR 1.2 (<1.2); Non-African American GFR(CKD) 47 (>60 ml/min/1.73 sqM); Potassium 4.6 mmol/L (3.5-5.1); Prothrombin Time 13.1 sec (10.0-12.5); Sodium 121 mmol/L (137-145); Total Bilirubin 1.3 mg/dL (0.2-1.3); Total Protein 6.2 g/dL (6.3-8.2)
--- NOTE | 2024-04-08 19:16 | XR ---
EXAMINATION TYPE: XR chest 2V DATE OF EXAM: 04/08/2024 6:49 PM CLINICAL INDICATION:Male, 64 years old with history of Weakness; [facility] COMPARISON: Chest radiographs from 08/05/2015 TECHNIQUE: XR chest 2V Frontal and lateral views of the chest. FINDINGS: Lungs/Pleura: There is no evidence of pleural effusion, focal consolidation, or pneumothorax. Azygou s fissure noted. Pulmonary vascularity: Unremarkable. Heart/mediastinum: Cardiomediastinal silhouette is unremarkable. Musculoskeletal: No acute osseous pathology. IMPRESSION: Low lung volumes with a generalized hazy appearance which could represent atelectasis versus pulmonar y edema correlate with serum BNP.
[2024-04-08 19:20] LABS: NT-Pro-B-Type Natriuretic Pept 2830 pg/mL
[2024-04-08] MEDS ORDERED: VANCOMYCIN IV PER PHARMACY 1 EACH MISC MISCELLANE PRN (19:32)
[2024-04-08] MEDS ORDERED: FLUTICASONE 50MCG/SPRAY NASAL 16GM EA NOSTRIL PRN (19:33)
--- NOTE | 2024-04-08 19:50 | ED ---
General Adult HPI - General Chief complaint: Weakness Stated complaint: diarrhea Time Seen by Provider: 04/08/24 17:59 Source: patient, RN notes reviewed, old records reviewed Mode of arrival: EMS Limitations: no limitations - History of Present Illness Initial comments: Is a 64-year-old male who presents emergency department complaining of weakness, diarrhea. EKG from EMS showed possible ischemic changes. Was placed in trauma bay 3 upon arrival. Has been having diarrhea for days. Feeling more weak. Has a history of septic shock. Unknown obvious source at this time. Currently is resting comfortably. Other than the diarrhea has no acute complaints. Patient is febrile with a fever of 102. Started on IV fluids. Presents for further evaluation at this time. Not on blood thinners. Patient had an episode of weakness as well as being unable to stand up while at the bathroom today at home. Had diarrhea all over the bathroom. Found by his who called EMS.Denies chest pain, shortness of breath, abdominal pain. No sore throat. - Related Data Home Medications Medication Instructions Recorded Confirmed carvediloL [Coreg] 12.5 mg PO BID 10/16/21 04/08/24 Fluticasone Nasal [place] [Flonase 1 spray EA NOSTRIL DAILY PRN 04/08/24 04/08/24 Nasal [place]] Losartan [Cozaar] 25 mg PO DAILY 04/08/24 04/08/24 Previous Rx's Medication Instructions Recorded Ketorolac [Toradol] 10 mg PO Q6HR PRN #15 tab 04/02/24 Lidocaine 5% Patch [Lidoderm 5% 1 patch TOPICAL DAILY PRN #30 patch 04/02/24 Patch] Orphenadrine [Norflex] 100 mg PO Q12H PRN #20 tab 04/02/24 Allergies Allergy/AdvReac Type Severity Reaction Status Date / Time No Known Allergies Allergy Verified 04/08/24 18:32 Review of Systems ROS Statement: Those systems with pertinent positive or pertinent negative responses have been documented in the HPI. Review of Systems: CONST: Denies fever EYES: Denies blurry vision ENT: Denies nasal congestion C/V: Denies Chest pain RESP: Denies shortness of breath GI: Endorses diarrhea, weakness : Denies dysuria SKIN: Denies rash. MSK: Denies joint pain. NEURO: Denies headache ROS Other: All systems not noted in ROS Statement are negative. Past Medical History Past Medical History: Hypertension, Osteoarthritis (OA), Skin Disorder, Sleep Apnea/CPAP/BIPAP Additional Past Medical History / Comment(s): exczema, heart murmur, hx. of endocarditis 2014, used to use CPAP, hx. of gastric ulcer History of Any Multi-Drug Resistant Organisms: MRSA Date of last positivie culture/infection: 2018 MDRO Source:: spine Past Surgical History: Back Surgery Additional Past Surgical History / Comment(s): LYMPH NODE REMOVEDbenign, had spinal/back surgery related to MRSA infection, surg. for gastric ulcer Past Anesthesia/Blood Transfusion Reactions: No Reported Reaction Past Psychological History: No Psychological Hx Reported Smoking Status: Current every day smoker Past Alcohol Use History: Occasional Past Drug Use History: None Reported - Past Family History Father Family Medical History: Coronary Artery Disease (CAD), Liver Disease Mother Family Medical History: Myocardial Infarction ([place]) General Exam - General Exam Comments Initial Comments: General: Appears dehydrated. But otherwise in no acute distress. Febrile. HEAD: Normal with no signs of head trauma. EYES: PERRLA, EOMI, conjunctiva normal, no discharge. ENT: Hearing grossly intact, normal oropharynx. Dry mucous membranes. RESPIRATORY: Clear breath sounds bilaterally. No wheezes, rales, or rhonchi. C/V: Cardiac with regular rhythm. S1 and S2 auscultated, no edema, peripheral pulses 2+ and intact throughout ABD: Abd is soft, nontender, nondistended EXT: Normal range of motion, no obvious deformity SKIN: No rashes or lesions observed on exposed skin. NEURO: Alert and oriented x 4. Limitations: no limitations Course Vital Signs 04/08/24 04/08/24 17:55 19:42 Temperature 102.3 F H 99.3 F Pulse Rate 101 H 89 Respiratory 18 20 Rate Blood Pressure 112/68 75/52 O2 Sat by Pulse 94 L 96 Oximetry Procedures - Central Line Placement Left Femoral Consent Obtained: verbal consent Patient Placed on Monitor/Pulse Ox: Yes MD Prep: mask, gown, gloves Central Line Prep: Chlorhexidine scrub Local Anesthesia Used: Lidocaine 1% Amount of Anesthesia Used (mls): 4 Ultrasound Used for Placement: Yes Central Line Lumen Inserted: triple Central Line Position: good blood return, all ports aspirated, flushed, capped, sutured in place with nylon Dressing Applied: Tegaderm Patient Tolerated Procedure: well Complications: none - Sepsis Sepsis Focused Exam #1 Time Sepsis Criteria Met: 19:32 Sepsis Focused Exam Date: 04/08/24 Sepsis Focused Exam Time: 21:50 Capillary Refill: > 2 Seconds: Fingers, Toes Peripheral Pulses: Normal: Radial (R), Radial (L) Skin Color: Normal for Patient Respiratory Exam: normal lung sounds Cardiovascular Exam: regular rate, normal rhythm Medical Decision Making - Medical Decision Making Was pt. sent in by a medical professional or institution (, PA, PER DIEM CLERK, urgent care, hospital, or prison...) When possible be specific @ -No Did you speak to anyone other than the patient for history (EMS, parent, family, police, friend...)? What history was obtained from this source @ -No Did you review nursing and triage notes (agree or disagree)? Why? @ -I reviewed and agree with nursing and triage notes Were old charts reviewed (outside hosp., previous admission, EMS record, old EKG, old radiological studies, urgent care reports/EKG's, prison records)? Report findings @ -No old charts were reviewed Differential Diagnosis (chest pain, altered mental status, abdominal pain women, abdominal pain men, vaginal bleeding, weakness, fever, dyspnea, syncope, headache, dizziness, GI bleed, back pain, seizure, CVA, palpatations, mental health, musculoskeletal)? @ -Differential Weakness: Hypoglycemia, shock, sepsis, hyponatremia, anemia, infection, [place], ETOH, adverse medicine reaction, overdose, stroke, this is not meant to be an all-inclusive list. Differential Fever: Pneumonia, viral URI, endocarditis, myocarditis, pericarditis, otitis, sinusitis, peritonsillar Abscess, retropharyngeal Abscess, epiglottitis, peritonitis, appendicitis, Toyin cystitis, diverticulitis, hepatitis, colitis, UTI, PID, TOA, pyelonephritis, prostatitis, epididymitis, meningitis, encephalitis, pulmonary embolism, CVA, thyroid storm, pancreatitis, adrenal crisis, cavernous sinus thrombosis, this is not meant to be an all-inclusive list. EKG interpreted by me (3pts min.). @ -As above X-rays interpreted by me (1pt min.). @ -Chest x-ray reveals no obvious acute cardiopulmonary process CT interpreted by me (1pt min.). @ -CT abdomen pelvis reveals no obvious acute process. U/S interpreted by me (1pt. min.). @ -None done What testing was considered but not performed or refused? (CT, X-rays, U/S, labs)? Why? @ -None What meds were considered but not given or refused? Why? @ -Received aspirin from EMS Did you discuss the management of the patient with other professionals (professionals i.e. DrWoo, PA, PER DIEM CLERK, lab, RT, psych nurse, hospice social worker, environment friendly landscape designer, teacher, corporate responsibility officer, director of casework services)? Give summary @ -Discussed with admitting physician group, [facility] Nancy who accepted the admission. Spoke with Dr. Foley of ICU who was in agreement plan for admission to the ICU. Was smoking cessation discussed for >3mins.? @ -No Was critical care preformed (if so, how long)? @ -Yes, 42 minutes. Were there social determinants of health that impacted care today? How? (H omelessness, low income, unemployed, alcoholism, drug addiction, transportation, low edu. Level, literacy, decrease access to med. care, assisted, rehab)? @ -No Was there de-escalation of care discussed even if they declined (Discuss DNR or withdrawal of care, Hospice)? DNR status @ -No What co-morbidities impacted this encounter? (DM, HTN, Smoking, COPD, CAD, Cancer, CVA, ARF, Chemo, Hep., AIDS, mental health diagnosis, sleep apnea, morbid obesity)? @ -None Was patient admitted / discharged? Hospital course, mention meds given and route, prescriptions, significant lab abnormalities, going to OR and other pertinent info. @ -Patient presents with febrile illness and concern for dehydration. Had a weakness episode at home. EKGs do not appear show any obvious actionable ischemia but some nonspecific changes are present. We will obtain broad workup. He will be given Tylenol Motrin for fever. Patient in agreement this plan. Vital signs within acceptable limits. Patient started on 1 L fluid bolus. EKG shows nonspecific changes. No dynamic changes on second EKG. Chest x-ray unremarkable. Laboratory studies remarkable for a leukocytosis of 13. Lactic acidosis of 4.7. Patient has an NSTEMI with a troponin of 0.7. BNP slightly elevated 2800. Patient also has an BIN with a BUN of 26 and creatinine 1.56 and hyponatremia of 121 and hypochloremia of 91. Urine is still pending at this time. After the patient. Decision was made to admit the patient to the hospital. Patient met sepsis criteria at this time which was 1931. Patient initiated on broad-spectrum vancomycin and Zosyn. Patient given a second liter fluid bolus and placed on maintenance fluids. Blood cultures were already obtained and sent. We will repeat the lactic acid. Patient started on heparin for NSTEMI, with the nonspecific ST segment T wave abnormalities with possible demand ischemia. Patient received aspirin from EMS. Shortly after this, patient's blood pressures became soft. Maps remained below 65 despite over 2 L fluid resuscitation. At this time I discussed with the patient and concern is for septic shock. He verbally consented to a left femoral central line. He tolerated the procedure well. Was started on Levophed with goal maps of 65. I spoke with Dr. Foley of the ICU who accepted the admission. Was in agreement with the plan. Cardiology consulted. I spoke with [facility] Nancy who accepted the admission. Patient admitted in serious condition to the ICU. Patient's present at bedside and did provide additional information. Patient has a history of sepsis of unknown origin. States patient has been having frequent bouts of diarrhea over the last multiple days. Does have remote history of endocarditis in 2014. CT of the abdomen pelvis was obtained as this is his only current complaint being the diarrhea and this was unremarkable. No obvious findings. Echo ordered. Cardiology consulted. Infectious disease consulted. Dr. Foley of ICU consulted. At time of admission, patient continues to complain of no obvious acute complaints at this time. He is resting comfortably. Undiagnosed new problem with uncertain prognosis? @ -Yes Drug Therapy requiring intensive monitoring for toxicity (Heparin, Nitro, Insulin, Cardizem)? @ -Heparin Were any procedures done? @ -No Diagnosis/symptom? @ -Septic shock with unknown source, dehydration, NSTEMI, hyponatremia, hypochloremia, BIN Acute, or Chronic, or Acute on Chronic? @ -Acute Uncomplicated (without systemic symptoms) or Complicated (systemic symptoms)? @ -Complicated Side effects of treatment? @ -No Exacerbation, Progression, or Severe Exacerbation? @ -No Poses a threat to life or bodily function? How? (Chest pain, [place], [place], pneumonia, PE, COPD, DKA, ARF, appy, cholecystitis, CVA, Diverticulitis, Homicidal, Suicidal, threat to staff... and all critical care pts) @ -Yes - Lab Data Result diagrams: 04/08/24 18:10 04/08/24 18:10 Lab Results 04/08/24 04/08/24 04/08/24 Range/Units 18:10 18:10 18:10 WBC 13.0 H (3.8-10.6) k/uL RBC 4.62 (4.30-5.90) m/uL Hgb 14.2 (13.0-17.5) gm/dL Hct 41.0 (39.0-53.0) % MCV 88.8 (80.0-100.0) fL MCH 30.7 (25.0-35.0) pg MCHC 34.6 (31.0-37.0) g/dL RDW 12.5 (11.5-15.5) % Plt Count 186 (150-450) k/uL MPV 7.5 Neutrophils % 90 % Lymphocytes % 2 % Monocytes % 8 % Eosinophils % 0 % Basophils % 0 % Neutrophils # 11.7 H (1.3-7.7) k/uL Lymphocytes # 0.2 L (1.0-4.8) k/uL Monocytes # 1.1 H (0-1.0) k/uL Eosinophils # 0.0 (0-0.7) k/uL Basophils # 0.0 (0-0.2) k/uL PT 13.1 H (10.0-12.5) sec INR 1.2 H (<1.2) APTT 27.0 (22.0-30.0) sec Sodium 121 L (137-145) mmol/L Potassium 4.6 (3.5-5.1) mmol/L Chloride 91 L (98-107) mmol/L Carbon Dioxide 18 L (22-30) mmol/L Anion Gap 12 mmol/L BUN 26 H (9-20) mg/dL Creatinine 1.56 H (0.66-1.25) mg/dL Est GFR (CKD-EPI)AfAm 54 (>60 ml/min/1.73 sqM) Est GFR (CKD-EPI)NonAf 47 (>60 ml/min/1.73 sqM) Glucose 98 (74-99) mg/dL Lactic Ac Sepsis Rflx Plasma Lactic Acid Arjun (0.7-2.0) mmol/L Calcium 8.4 (8.4-10.2) mg/dL Magnesium 2.0 (1.6-2.3) mg/dL Total Bilirubin 1.3 (0.2-1.3) mg/dL AST 94 H (17-59) U/L ALT 50 H (4-49) U/L Alkaline Phosphatase 141 H (38-126) U/L Troponin I (0.000-0.034) ng/mL NT-Pro-B Natriuret Pep 2830 pg/mL Total Protein 6.2 L (6.3-8.2) g/dL Albumin 3.3 L (3.5-5.0) g/dL Influenza Type A (PCR) (Not Detectd) Influenza Type B (PCR) (Not Detectd) RSV (PCR) (Not Detectd) SARS-CoV-2 (PCR) (Not Detectd) 04/08/24 04/08/24 04/08/24 Range/Units 18:10 18:10 18:10 WBC (3.8-10.6) k/uL RBC (4.30-5.90) m/uL Hgb (13.0-17.5) gm/dL Hct (39.0-53.0) % MCV (80.0-100.0) fL MCH (25.0-35.0) pg MCHC (31.0-37.0) g/dL RDW (11.5-15.5) % Plt Count (150-450) k/uL MPV Neutrophils % % Lymphocytes % % Monocytes % % Eosinophils % % Basophils % % Neutrophils # (1.3-7.7) k/uL Lymphocytes # (1.0-4.8) k/uL Monocytes # (0-1.0) k/uL Eosinophils # (0-0.7) k/uL Basophils # (0-0.2) k/uL PT (10.0-12.5) sec INR (<1.2) APTT (22.0-30.0) sec Sodium (137-145) mmol/L Potassium (3.5-5.1) mmol/L Chloride (98-107) mmol/L Carbon Dioxide (22-30) mmol/L Anion Gap mmol/L BUN (9-20) mg/dL Creatinine (0.66-1.25) mg/dL Est GFR (CKD-EPI)AfAm (>60 ml/min/1.73 sqM) Est GFR (CKD-EPI)NonAf (>60 ml/min/1.73 sqM) Glucose (74-99) mg/dL Lactic Ac Sepsis Rflx Plasma Lactic Acid Arjun 4.7 H* (0.7-2.0) mmol/L Calcium (8.4-10.2) mg/dL Magnesium (1.6-2.3) mg/dL Total Bilirubin (0.2-1.3) mg/dL AST (17-59) U/L ALT (4-49) U/L Alkaline Phosphatase (38-126) U/L Troponin I 0.740 H* (0.000-0.034) ng/mL NT-Pro-B Natriuret Pep pg/mL Total Protein (6.3-8.2) g/dL Albumin (3.5-5.0) g/dL Influenza Type A (PCR) Not Detected (Not Detectd) Influenza Type B (PCR) Not Detected (Not Detectd) RSV (PCR) Not Detected (Not Detectd) SARS-CoV-2 (PCR) Not Detected (Not Detectd) 04/08/24 Range/Units 19:18 WBC (3.8-10.6) k/uL RBC (4.30-5.90) m/uL Hgb (13.0-17.5) gm/dL Hct (39.0-53.0) % MCV (80.0-100.0) fL MCH (25.0-35.0) pg MCHC (31.0-37.0) g/dL RDW (11.5-15.5) % Plt Count (150-450) k/uL MPV Neutrophils % % Lymphocytes % % Monocytes % % Eosinophils % % Basophils % % Neutrophils # (1.3-7.7) k/uL Lymphocytes # (1.0-4.8) k/uL Monocytes # (0-1.0) k/uL Eosinophils # (0-0.7) k/uL Basophils # (0-0.2) k/uL PT (10.0-12.5) sec INR (<1.2) APTT (22.0-30.0) sec Sodium (137-145) mmol/L Potassium (3.5-5.1) mmol/L Chloride (98-107) mmol/L Carbon Dioxide (22-30) mmol/L Anion Gap mmol/L BUN (9-20) mg/dL Creatinine (0.66-1.25) mg/dL Est GFR (CKD-EPI)AfAm (>60 ml/min/1.73 sqM) Est GFR (CKD-EPI)NonAf (>60 ml/min/1.73 sqM) Glucose (74-99) mg/dL Lactic Ac Sepsis Rflx Y Plasma Lactic Acid Arjun (0.7-2.0) mmol/L Calcium (8.4-10.2) mg/dL Magnesium (1.6-2.3) mg/dL Total Bilirubin (0.2-1.3) mg/dL AST (17-59) U/L ALT (4-49) U/L Alkaline Phosphatase (38-126) U/L Troponin I (0.000-0.034) ng/mL NT-Pro-B Natriuret Pep pg/mL Total Protein (6.3-8.2) g/dL Albumin (3.5-5.0) g/dL Influenza Type A (PCR) (Not Detectd) Influenza Type B (PCR) (Not Detectd) RSV (PCR) (Not Detectd) SARS-CoV-2 (PCR) (Not Detectd) - EKG Data -: EKG Interpreted by Me EKG Comments: 12-lead Electrocardiogram Interpretation Note EKG was reviewed and interpreted by myself. 12-lead ECG performed at 1756 is interpreted by me as revealing tachycardia right bundle branch block at a rate of 101 beats per minute. Left axis deviation. WI interval is 124 ms, QRS duration is 169 ms, QTc is [address] segment and T wave abnormalities.. R wave progression across the precordium was delayed. 12-lead Electrocardiogram Interpretation Note EKG was reviewed and interpreted by myself. 12-lead ECG performed at 1832 is interpreted by me as revealing normal sinus rhythm at a rate of 95 beats per minute. Left axis deviation WI interval is 147 ms, QRS duration is 173 ms, QTc is 461 ms. Right bundle branch block morphology.. Not on specific ST segment or T wave abnormalities continued. No dynamic changes.. R wave progression across the precordium was delayed. Critical Care Time Critical Care Time: Yes Total Critical Care Time: 42 Disposition Clinical Impression: Septic shock, Dehydration, Hyponatremia, Hypochloremia, BIN (acute kidney injury), Diarrhea, NSTEMI (non-ST elevated myocardial infarction) Disposition: ADMITTED IP TO THIS HOSP Condition: Serious Time of Disposition: 21:05
[2024-04-08] MEDS: HEPARIN SODIUM 1,000 UN/ML (10ML VL) IV ONE (19:59)
[2024-04-08] MEDS: HEPARIN SOD,PORK IN 0.45% NACL 25,000 UNIT in 0.45% NACL 1 250ML.BAG IV SCH (19:59)
[2024-04-08] MEDS: PIPERACILLIN-TAZOBACTAM 3.375 GM in SODIUM CHLORIDE 0.9% 100 ML IVPB SCH (20:31)
--- NOTE | 2024-04-08 20:54 | CT ---
EXAMINATION TYPE: CT abdomen pelvis w con CT DLP: 902.4 mGycm, Automated exposure control for dose reduction was used. DATE OF EXAM: 04/08/2024 8:45 PM COMPARISON: CT abdomen pelvis most recent from 04/13/2019 CLINICAL INDICATION:Male, 64 years old with history of diarrhea, abd pain; sepsis, diarrhea, abdomina l pain. TECHNIQUE: Axial CT abdomen pelvis w con;Sagittal and coronal reformats were created on a separate w orkstation. Contrast used:80 ml mL of Isovue 370 with IV Contrast, (none if empty) Oral contrast used: without Oral Contrast (none if empty) FINDINGS: LOWER CHEST: Coronary artery calcifications and aortic valve leaflet calcifications. ABDOMEN LIVER: Unremarkable GALLBLADDER AND BILE DUCTS: Unremarkable. PANCREAS: Unremarkable. SPLEEN: Unremarkable. ADRENAL GLANDS: Unremarkable. KIDNEYS AND URETERS: No evidence of hydronephrosis or renal calculus. The ureters are unremarkable. PELVIS BLADDER: Unremarkable REPRODUCTIVE: Prostate is enlarged in size measuring 5.4 cm in transverse dimension. ABDOMEN & PELVIS STOMACH AND BOWEL: No evidence of bowel obstruction. PERITONEUM/RETROPERITONEUM: No evidence of pneumoperitoneum or free fluid. VASCULATURE: No evidence of aortic aneurysm. MUSCULOSKELETAL: No acute osseous abnormalities, severe degeneration changes with wedge compression d eformity of T9 with complete height loss anteriorly. Incomplete increased kyphosis of the spine. LYMPH NODES: No gross evidence for lymphadenopathy. SOFT TISSUE/ABDOMINAL WALL: Fat-containing inguinal hernia. Fat-containing umbilical hernia. IMPRESSION: 1. No evidence for acute abdominal process. 2. Prostatomegaly, correlate with serum PSA. 3. Increased kyphosis of the spine due to T9 compression deformity with complete height loss anterio rly.
[2024-04-08] MEDS: NOREPINEPHRINE 4 MG in SODIUM CHLORIDE 0.9% 250 ML IV ONE (21:13)
[2024-04-08] MEDS ORDERED: NALOXONE 0.4 MG/ML 1 ML VIAL IV PRN (21:18)
[2024-04-08] MEDS ORDERED: ACETAMINOPHEN TAB 325 MG TAB PO PRN (21:40)
[2024-04-08] MEDS ORDERED: LIDOCAINE 4% PATCH TOPICAL PRN (21:40)
[2024-04-08 22:07] LABS: Glucose,Whole Blood 95 mg/dL (70-110)
[2024-04-08] MEDS: VANCOMYCIN 1,500 MG in SODIUM CHLORIDE 0.9% 500 ML IVPB SCH (22:25)
[2024-04-08 22:48] LABS: Appearance,Urine Cloudy (Clear); Bacteria,Urine Rare /hpf; Bilirubin,Urine Negative (Negative); Blood,Urine Moderate (Negative); Color,Urine Yellow; Glucose,Urine (UA) Negative (Negative); Hyaline Casts,Urine 8 /lpf (0-2); Ketones,Urine 1+ (Negative); Leukocyte Esterase,Urine Small (Negative); Mucus,Urine Rare /hpf; Nitrite,Urine Negative (Negative); Protein,Urine 1+ (Negative); RBC,Urine 6 /hpf (0-5); Specific Gravity,Urine 1.042 (1.001-1.035); Urobilinogen,Urine <2.0 mg/dL (<2.0); WBC,Urine 15 /hpf (0-5)
[2024-04-09 02:25] LABS: Basophils % (A) 0 %; Eosinophils % (A) 0 %; HCT 36.2 % (39.0-53.0); HGB 12.2 gm/dL (13.0-17.5); Lymphocytes # (A) 0.4 k/uL (1.0-4.8); Lymphocytes % (A) 4 %; MCH 30.5 pg (25.0-35.0); MCHC 33.7 g/dL (31.0-37.0); MCV 90.4 fL (80.0-100.0); Mean Platelet Volume 7.7; Monocytes % (A) 9 %; Neutrophils # (A) 10.2 k/uL (1.3-7.7); Neutrophils % (A) 86 %; Platelet Count 171 k/uL (150-450); RDW 12.7 % (11.5-15.5); WBC 11.9 k/uL (3.8-10.6)
[2024-04-09 02:44] LABS: INR 1.3 (<1.2); Prothrombin Time 13.9 sec (10.0-12.5)
[2024-04-09 05:15] LABS: ALT 57 U/L (4-49); AST 106 U/L (17-59); African American GFR (CKD) 83 (>60 ml/min/1.73 sqM); Albumin 2.5 g/dL (3.5-5.0); Alkaline Phosphatase 112 U/L (38-126); Anion Gap 9 mmol/L; Blood Urea Nitrogen 26 mg/dL (9-20); Calcium 7.5 mg/dL (8.4-10.2); Carbon Dioxide 14 mmol/L (22-30); Chloride 104 mmol/L (98-107); Glucose 95 mg/dL (74-99); Non-African American GFR(CKD) 72 (>60 ml/min/1.73 sqM); Potassium 3.4 mmol/L (3.5-5.1); Sodium 127 mmol/L (137-145); Total Bilirubin 0.8 mg/dL (0.2-1.3); Total Protein 5.2 g/dL (6.3-8.2)
[2024-04-09] MEDS ORDERED: Potassium Replacement Protocol 1 EACH MISC MISCELLANE PRN (05:20)
[2024-04-09] MEDS: POTASSIUM CHLORIDE ER 20 MEQ TAB.ER PO SCH ×4 (06:03→19:04)
[2024-04-09] MEDS: ASPIRIN 81 MG PO SCH (08:50)
[2024-04-09] MEDS ORDERED: LOSARTAN 25 MG TAB PO SCH (09:00)
--- NOTE | 2024-04-09 11:13 | P.CNPUL ---
History of Present Illness Consult date: 04/09/24 Requesting physician: Merced Arriola Chief complaint: Weakness, diarrhea History of present illness: This is a very pleasant 64-year-old male patient with a history of hypertension, obstructive sleep apnea, endocarditis, spinal surgery secondary to MRSA infection, gastric ulcer repair, chronic and ongoing tobacco dependence. He presented here to the emergency room yesterday with a 3-day history of weakness and diarrhea. He was also found to have EKG changes by EMS. Patient did not have any complaints of chest pain, shortness of breath, cough or congestion. He was found to be febrile at 102. White count 11.9. Hemoglobin 12.2. Platelets 171. Sodium 127. Potassium 3.6. Bicarb 14. BUN 26. Creatinine 1.09. AST 106. ALT 57. Troponins 2.6 and 2.7. Urine did reveal moderate blood and rare bacteria. Blood cultures are pending. He was also hypotensive and admitted to the intensive care unit. He is seen today in consultation. He is sitting up in bed. Awake and alert. Feeling a bit better today compared to yesterday. He has been initiated on vancomycin and Zosyn. He is on a heparin drip. Echoc ardiogram is pending. Requiring norepinephrine currently at 1.6 mcg/min. Received 3 L of fluid resuscitation. Chest x-ray reveals low lung volumes with generalized hazy appearance represent atelectasis versus pulmonary edema. CT scan of the abdomen revealed no evidence for acute abdominal process. He is currently maintaining good O2 saturations in the 90s on 2 L/min per nasal cannula. Review of Systems REVIEW OF SYSTEMS: CONSTITUTIONAL: Denies any recent significant weight loss or weight gain. EYES: Denies change in vision. EARS, NOSE, MOUTH, THROAT: Denies headaches, denies sore throat. CARDIOVASCULAR: Denies chest pain, palpitations or syncopal episodes. RESPIRATORY: Denies shortness of breath, cough, congestion or hemoptysis. GASTROINTESTINAL: Positive for diarrhea, weakness. GENITOURINARY: Denies hematuria, denies infections. MUSKULOSKELETAL: Denies pain, denies swelling. INTEGUMENTARY: Denies rash, denies eczema. NEUROLOGICAL: Denies recent memory loss, no recent seizure activity. PSYCHIATRIC: Denies anxiety, denies depression. HEMATOLOGIC/LYMPHATIC: Denies anemia, denies enlarged lymph nodes. Past Medical History Past Medical History: Hypertension, Osteoarthritis (OA), Skin Disorder, Sleep Apnea/CPAP/BIPAP Additional Past Medical History / Comment(s): exczema, heart murmur, hx. of endocarditis 2014, used to use CPAP, hx. of gastric ulcer History of Any Multi-Drug Resistant Organisms: MRSA Date of last positivie culture/infection: 2018 MDRO Source:: spine Past Surgical History: Back Surgery Additional Past Surgical History / Comment(s): LYMPH NODE REMOVEDbenign, had spinal/back surgery related to MRSA infection, surg. for gastric ulcer Past Anesthesia/Blood Transfusion Reactions: No Reported Reaction Past Psychological History: No Psychological Hx Reported Smoking Status: Current every day smoker Past Alcohol Use History: Occasional Past Drug Use History: None Reported - Past Family History Father Family Medical History: Coronary Artery Disease (CAD), Liver Disease Mother Family Medical History: Myocardial Infarction ([place]) Medications and Allergies Home Medications Medication Instructions Recorded Confirmed Type carvediloL [Coreg] 12.5 mg PO BID 10/16/21 04/08/24 History Ketorolac [Toradol] 10 mg PO Q6HR PRN #15 tab 04/02/24 04/08/24 Rx Lidocaine 5% Patch [Lidoderm 5% 1 patch TOPICAL DAILY PRN #30 patch 04/02/24 04/08/24 Rx Patch] Orphenadrine [Norflex] 100 mg PO Q12H PRN #20 tab 04/02/24 04/08/24 Rx Fluticasone Nasal [place] [Flonase 1 spray EA NOSTRIL DAILY PRN 04/08/24 04/08/24 History Nasal [place]] Losartan [Cozaar] 25 mg PO DAILY 04/08/24 04/08/24 History Allergies Allergy/AdvReac Type Severity Reaction Status Date / Time No Known Allergies Allergy Verified 04/08/24 18:32 Physical Exam Vitals: Vital Signs Temp Pulse Pulse Resp BP BP Pulse Ox 04/09/24 10:00 71 15 105/61 97 04/09/24 09:45 72 17 93/57 95 04/09/24 09:30 75 18 107/61 97 04/09/24 09:15 74 24 103/54 97 04/09/24 09:00 69 22 97/57 96 04/09/24 08:45 75 22 90/54 95 04/09/24 08:30 77 20 89/55 96 051824 08:15 81 14 100/56 95 05 08:00 98.3 F 75 16 94/58 95 04/09/24 07:45 78 19 91/64 96 051824 07:30 78 22 95/58 96 04/09/24 07:15 77 19 82/38 89 L 04/09/24 07:00 80 27 H 95/58 90 L 04/09/24 06:45 73 17 107/59 96 04/09/24 06:30 72 12 94/56 96 04/09/24 06:15 72 21 101/58 96 04/09/24 06:00 70 21 101/65 96 04/09/24 05:45 70 15 100/63 97 04/09/24 05:30 71 15 98/61 97 04/09/24 05:15 70 19 110/63 97 04/09/24 05:00 67 15 102/62 97 04/09/24 04:45 68 15 102/61 97 04/09/24 04:30 69 15 102/62 97 04/09/24 04:15 68 18 99/57 97 04/09/24 04:00 98.1 F 64 16 97/59 96 04/09/24 03:45 65 16 99/57 97 04/09/24 03:30 65 22 96/54 96 04/09/24 03:15 63 15 98/59 98 04/09/24 03:00 64 12 93/58 96 18 02:45 64 14 95/60 97 24 02:30 64 11 L 92/56 97 04/09/24 02:15 64 15 89/57 97 18/24 02:00 65 18 93/58 96 0518/24 01:45 67 17 85/55 97 1824 01:30 68 15 89/55 97 0518/24 01:15 71 16 93/57 96 1824 01:00 73 18 90/58 94 L 04/09/24 00:49 82 20 80/55 96 05/18/24 00:47 85 24 73/52 95 0518/24 00:45 74 14 79/51 96 051824 00:30 74 17 84/57 96 051824 00:15 78 23 83/57 92 L 04/09/24 00:10 77 20 83/57 95 04/09/24 00:00 98.0 F 78 18 92/65 96 04/08/24 23:45 79 22 93/51 95 04/08/24 23:30 79 16 83/56 88 L 04/08/24 23:15 80 12 88/60 93 L 04/08/24 23:00 80 15 96/66 93 L 04/08/24 22:54 80 20 96/66 94 L 04/08/24 22:00 98.1 F 80 18 95/60 95 04/08/24 21:52 98.1 F 80 16 96/66 95 04/08/24 21:15 84 22 78/57 95 04/08/24 20:45 84 22 75/54 96 04/08/24 20:00 87 22 74/51 96 04/08/24 19:45 89 22 65/51 96 04/08/24 19:42 99.3 F 89 20 75/52 96 04/08/24 19:30 92 20 71/51 94 L 04/08/24 19:00 92 20 86/53 94 L 04/08/24 18:30 96 20 101/63 94 L 04/08/24 18:15 98 20 94 L 04/08/24 18:00 95 20 94/66 95 04/08/24 17:55 102.3 F H 101 H 18 112/68 94 L Intake and Output 04/08/24 04/09/24 04/09/24 22:59 06:59 14:59 Intake Total 641.799 9831.613 418.313 Output Total 125 1615 550 Balance 481.415 47.613 -131.687 Intake: IV 600 1000 400 Piperacillin-Tazobactam 3 100 100 .375 gm In Sodium Chloride 0.9% 100 ml @ 25 mls/hr IVPB Q8H RELL Rx#: [id number] Sodium Chloride 0.9% 1, 100 900 300 000 ml @ 100 mls/hr IV . Q10H STA Rx#:[id number] Vancomycin 1,500 mg In 500 Sodium Chloride 0.9% 500 ml @ 166.667 mls/hr IVPB Q16H RELL Rx#:[id number] Intake, IV Titration 6.415 122.613 18.313 Amount Norepinephrine 4 mg In 6.415 122.613 18.313 Sodium Chloride 0.9% 250 ml @ 0.03 MCG/KG/MIN 8. 814 mls/hr IV .Q24H ONE Rx#:[id number] Oral 540 Output: Urine 125 1615 550 Other: Voiding Method Indwelling Catheter Indwelling Catheter Weight 77.111 kg 78.5 kg GENERAL EXAM: Alert, pleasant 64-year-old male, on 2 L nasal cannula, fairly comfortable in no apparent distress. HEAD: Normocephalic. EYES: Normal reaction of pupils, equal size. NOSE: Clear with pink turbinates. THROAT: No erythema or exudates. NECK: No masses, no JVD. CHEST: No chest wall deformity. LUNGS: Equal air entry with faint crackles in the posterior bases. CVS: S1 and S2 normal with no audible murmur, regular rhythm. ABDOMEN: No hepatosplenomegaly, normal bowel sounds, no guarding or rigidity. SPINE: No scoliosis or deformity SKIN: No rashes CENTRAL NERVOUS SYSTEM: No focal deficits, tone is normal in all 4 extremities. EXTREMITIES: There is no peripheral edema. No clubbing, no cyanosis. Peripheral pulses are intact. Results - Laboratory Findings CBC and BMP: 04/09/24 01:41 04/09/24 09:32 PT/INR, D-dimer PT 13.9 sec (10.0-12.5) H 04/09/24 01:41 INR 1.3 (<1.2) H 04/09/24 01:41 Abnormal lab findings: Abnormal Labs 04/08/24 04/08/24 04/08/24 18:10 18:10 18:10 WBC 13.0 H RBC Hgb Hct Neutrophils # 11.7 H Lymphocytes # 0.2 L Monocytes # 1.1 H PT 13.1 H INR 1.2 H APTT Sodium 121 L Potassium Chloride 91 L Carbon Dioxide 18 L BUN 26 H Creatinine 1.56 H Plasma Lactic Acid Arjun Calcium AST 94 H ALT 50 H Alkaline Phosphatase 141 H Troponin I Total Protein 6.2 L Albumin 3.3 L Ur Specific [place] Urine Protein Urine Ketones Urine Blood Ur Leukocyte Esterase Urine RBC Urine WBC Urine WBC Clumps Urine Bacteria Hyaline Casts Urine Mucus 04/08/24 04/08/24 04/08/24 18:10 18:10 22:20 WBC RBC Hgb Hct Neutrophils # Lymphocytes # Monocytes # PT INR APTT Sodium Potassium Chloride Carbon Dioxide BUN Creatinine Plasma Lactic Acid Arjun 4.7 H* Calcium AST ALT Alkaline Phosphatase Troponin I 0.740 H* Total Protein Albumin Ur Specific [place] 1.042 H Urine Protein 1+ H Urine Ketones 1+ H Urine Blood Moderate H Ur Leukocyte Esterase Small H Urine RBC 6 H Urine WBC 15 H Urine WBC Clumps Rare H Urine Bacteria Rare H Hyaline Casts 8 H Urine Mucus Rare H 04/09/24 04/09/24 04/09/24 01:41 01:41 01:41 WBC 11.9 H RBC 4.00 L Hgb 12.2 L Hct 36.2 L Neutrophils # 10.2 H Lymphocytes # 0.4 L Monocytes # PT 13.9 H INR 1.3 H APTT 57.3 H Sodium Potassium Chloride Carbon Dioxide BUN Creatinine Plasma Lactic Acid Arjun Calcium AST ALT Alkaline Phosphatase Troponin I Total Protein Albumin Ur Specific [place] Urine Protein Urine Ketones Urine Blood Ur Leukocyte Esterase Urine RBC Urine WBC Urine WBC Clumps Urine Bacteria Hyaline Casts Urine Mucus 04/09/24 04/09/24 04/09/24 01:41 04:06 04:06 WBC RBC Hgb Hct Neutrophils # Lymphocytes # Monocytes # PT INR APTT Sodium 127 L Potassium 3.4 L Chloride Carbon Dioxide 14 L BUN 26 H Creatinine Plasma Lactic Acid Arjun Calcium 7.5 L AST 106 H ALT 57 H Alkaline Phosphatase Troponin I 2.610 H* 2.790 H* Total Protein 5.2 L Albumin 2.5 L Ur Specific [place] Urine Protein Urine Ketones Urine Blood Ur Leukocyte Esterase Urine RBC Urine WBC Urine WBC Clumps Urine Bacteria Hyaline Casts Urine Mucus - Diagnostic Findings Chest x-ray: image reviewed Assessment and Plan Assessment: Generalized weakness secondary to 3 days of diarrhea and suspected sepsis with septic shock Acute kidney injury secondary to dehydration Hyponatremia secondary to above Hypotension secondary to above, requiring pressor support Non-ST segment elevation myocardial infarction, currently on a heparin drip, echocardiogram pending Acute hypoxemic respiratory failure secondary to suspected systolic versus diastolic congestive heart failure Chronic and ongoing tobacco dependence History of hypertension History of obstructive sleep apnea History of endocarditis in 2015 History of spinal surgery secondary to a MRSA infection History of gastric ulcer with repair Plan: The patient was seen and evaluated CT scan, chest x-ray, labs and medications reviewed Echocardiogram pending Continued on a heparin drip Titrate the norepinephrine as tolerated Titrate the FiO2 as tolerated New vancomycin and Zosyn Procalcitonin pending Continue fluids of 0.9 normal saline at 100 MLS per hour We will continue to follow and make further recommendations based on his clinical status I have personally seen and examined the patient, performed the documentation and the assessment and plan as written. Number of minutes spent on the visit: 20.
[2024-04-09] MEDS: SODIUM CHLORIDE 0.9% 1,000 ML IV SCH (11:25)
[2024-04-09] MEDS: VANCOMYCIN 1,500 MG in SODIUM CHLORIDE 0.9% 500 ML IVPB SCH (13:43)
--- NOTE | 2024-04-09 17:42 | CA ---
Transthoracic Echo Report Name: Horacio Lazaro Age: 64 Gender: M : 1960 Exam Date: 04/09/2024 08:03 Exam Location: [place] Ht (in): 70 Wt (lb): 170 Ordering Physician: Gianluca Chiang MD Attending/Referring Phys: Personal Banking Assistant Monse Corral RDCS Procedure CPT: Indications: nstemi Cardiac Hx: Technical Quality: Fair Contrast 1: Definity Total Dose (mL): 2 Contrast 2: Total Dose (mL): MEASUREMENTS (Male / Female) Normal Values 2D ECHO LV Diastolic Diameter PLAX 4.7 cm 4.2 - 5.9 / 3.9 - 5.3 cm LV Systolic Diameter PLAX 2.8 cm IVS Diastolic Thickness 1.1 cm 0.6 - 1.0 / 0.6 - 0.9 cm LVPW Diastolic Thickness 1.2 cm 0.6 - 1.0 / 0.6 - 0.9 cm LV Relative Wall Thickness 0.5 RV Internal Dim ED PLAX 1.6 cm LVOT Diameter 2.0 cm LA Systolic Diameter LX 3.0 cm 3.0 - 4.0 / 2.7 - 3.8 cm LA Volume 51.6 cm??? 18 - 58 / 22 - 52 cm??? LA Volume Index 26.4 cm???/m??? 16 - 28 cm???/m??? M-MODE Aortic Root Diameter MM 3.2 cm LA Systolic Diameter MM 4.3 cm LA Ao Ratio MM 1.3 AV Cusp Separation MM 1.2 cm DOPPLER AV Peak Velocity 243.9 cm/s AV Peak Gradient 23.8 mmHg AV Mean Velocity 175.2 cm/s AV Mean Gradient 13.8 mmHg AV Velocity Time Integral 46.0 cm AI Peak Velocity 367.7 cm/s AI Peak Gradient 54.1 mmHg AI Pressure Half Time 545.3 ms MV Area PHT 2.5 cm??? Mitral E Point Velocity 49.1 cm/s Mitral A Point Velocity 79.9 cm/s Mitral E to A Ratio 0.6 MV Deceleration Time 305.2 ms TR Peak Velocity 237.8 cm/s TR Peak Gradient 22.6 mmHg Right Ventricular Systolic Press 26.8 mmHg FINDINGS Left Ventricle Left ventricular ejection fraction is estimated at 30-35%. Rowe hypokinetic.Mildly increased septal wall thickness. Left ventricular cavity size normal. Right Ventricle Normal right ventricular size and function. Right ventricular systolic pressure within normal limits. Right Atrium Normal right atrial size. Left Atrium Normal left atrial size. Interatrial septal aneurysm. Mitral Valve Structurally normal mitral valve. Trace to mild mitral regurgitation. Aortic Valve Mild aortic stenosis with a peak gradient of 23mmHg and a mean gradient of 14mmHg. Trileaflet aortic valve. Thickened aortic valve.[id number] aortic regurgitation. Tricuspid Valve Structurally normal tricuspid valve. Trace to mild tricuspid regurgitation. Pulmonic Valve Structurally normal pulmonic valve. Trace pulmonic regurgitation. No pulmonic stenosis. Pericardium No pericardial or pleural effusion. Aorta Normal size aortic root and proximal ascending aorta. CONCLUSIONS Left ventricular ejection fraction is estimated at 30-35%. Rowe hypokinetic. Mildly increased septal wall thickness. Normal right ventricular size and function. Mild aortic stenosis with a peak gradient of 23mmHg and a mean gradient of 14mmHg. Previewed by: Dr Eddi Vargas (Electronically Signed) Final Date: 09 Apr 2024 17:42
--- NOTE | 2024-04-09 18:17 | P.CRDCN ---
History of Present Illness Consult date: 04/09/24 History of present illness: HISTORY OF PRESENTING ILLNESS 64-year-old male with past medical history of hypertension, obstructive sleep apnea, prior endocarditis in 2016, spinal surgery secondary to MRSA infection, chronic smoker, with residual severe aortic regurgitation based off CHRIS from 2019. He is known to Dr. Quezada. He has never had any cardiac interventions done in the past. He has not had any prior cardiac catheterization. This time he presented to the hospital because of complaints of substernal chest pressure, shortness of breath increased cough. He was also reporting fever of 102. He also reports generalized weakness and fatigue along with poor oral intake and diarrhea. On admission labs WBC 11.9, hemoglobin 12.2, platelet 171, sodium 127, BUN 26, creatinine 1.09. Troponin 2.6, 2.7., Elevated lactate On admission he was hypertensive for which she was placed on low-dose norepinephrine drip. He also got 3 L fluid resuscitation for sepsis. Echo showed an EF of 30 to 35%, apical hypokinesia, mild aortic stenosis and moderate to severe aortic regurgitation. REVIEW OF SYSTEMS 14 point review of system is negative except what is mentioned above in HPI. PHYSICAL EXAMINATION Vital signs reviewed. Head: Normocephalic. Eyes: Sclerae nonicteric. Neck: Brisk carotid upstroke, no jugular venous distention. Lungs: Clear to auscultation. Heart: Regular rate and rhythm, S1-S2, no S3, no murmur or rub. Abdomen: Soft nontender, positive bowel sounds. Extremities: No edema, intact distal pulses. Neuro: Alert, oritented, no focal deficits. Detailed neuro exam was not performed. ASSESSMENT Elevated troponin, likely type II NSTEMI versus stress cardiomyopathy Septic shock , unknown source at present Prior history of endocarditis involving aortic valve in 2016 Prior moderate ascending aortic regurgitation Generalized weakness and diarrhea Essential hypertension Hyponatremia BIN, secondary dehydration Tobacco smoker Echo showed an EF of 30 to 35%, apical hypokinesia, mild aortic stenosis and moderate to severe aortic regurgitation. PLAN Aspirin 81 mg, Start IV heparin drip Watch for any signs of fluid overload Pressor support as needed IV fluids and IV antibiotics and infectious workup as per primary and ICU team Eddi Vargas MD, FACC, RPVI Thank you for allowing [facility] to participate in this patient's care. Feel free to reach out in case of any followup questions. Past Medical History Past Medical History: Hypertension, Osteoarthritis (OA), Skin Disorder, Sleep Apnea/CPAP/BIPAP Additional Past Medical History / Comment(s): exczema, heart murmur, hx. of endocarditis 2014, used to use CPAP, hx. of gastric ulcer History of Any Multi-Drug Resistant Organisms: MRSA Date of last positivie culture/infection: 2018 MDRO Source:: spine Past Surgical History: Back Surgery Additional Past Surgical History / Comment(s): LYMPH NODE REMOVEDbenign, had spinal/back surgery related to MRSA infection, surg. for gastric ulcer Past Anesthesia/Blood Transfusion Reactions: No Reported Reaction Past Psychological History: No Psychological Hx Reported Smoking Status: Current every day smoker Past Alcohol Use History: Occasional Past Drug Use History: None Reported - Past Family History Father Family Medical History: Coronary Artery Disease (CAD), Liver Disease Mother Family Medical History: Myocardial Infarction ([place]) Medications and Allergies Home Medications Medication Instructions Recorded Confirmed Type carvediloL [Coreg] 12.5 mg PO BID 10/16/21 04/08/24 History Ketorolac [Toradol] 10 mg PO Q6HR PRN #15 tab 04/02/24 04/08/24 Rx Lidocaine 5% Patch [Lidoderm 5% 1 patch TOPICAL DAILY PRN #30 patch 04/02/24 04/08/24 Rx Patch] Orphenadrine [Norflex] 100 mg PO Q12H PRN #20 tab 04/02/24 04/08/24 Rx Fluticasone Nasal Harbinger [Flonase 1 spray EA NOSTRIL DAILY PRN 04/08/24 04/08/24 History Nasal Harbinger] Losartan [Cozaar] 25 mg PO DAILY 04/08/24 04/08/24 History Allergies Allergy/AdvReac Type Severity Reaction Status Date / Time No Known Allergies Allergy Verified 04/08/24 18:32 Physical Exam Vitals: Vital Signs Temp Pulse Pulse Resp BP BP Pulse Ox 04/09/24 16:00 97.7 F 80 22 96/59 94 L 04/09/24 15:45 78 19 95/54 96 04/09/24 15:30 80 21 101/55 95 04/09/24 15:15 80 17 92/62 96 04/09/24 15:00 79 20 98/56 97 05/18/24 14:45 77 14 102/55 97 04/09/24 14:30 76 20 95/56 95 04/09/24 14:15 75 19 94/58 96 04/09/24 14:00 79 22 92/57 95 04/09/24 13:45 82 17 108/64 96 04/09/24 13:30 79 21 95/59 95 04/09/24 13:15 76 18 87/58 96 04/09/24 13:00 82 22 101/62 91 L 04/09/24 12:45 76 23 89/52 97 04/09/24 12:30 80 28 H 86/60 96 04/09/24 12:15 77 45 H 94/54 95 04/09/24 12:00 98.0 F 78 19 91/55 97 04/09/24 11:45 73 10 L 95/58 96 04/09/24 11:30 79 21 96/56 95 04/09/24 11:15 74 17 101/62 97 04/09/24 11:00 75 13 97/57 96 04/09/24 10:45 74 14 103/60 96 04/09/24 10:30 73 13 97/61 97 04/09/24 10:15 75 16 91/58 92 L 04/09/24 10:00 71 15 105/61 97 04/09/24 09:45 72 17 93/57 95 04/09/24 09:30 75 18 107/61 97 04/09/24 09:15 74 24 103/54 97 04/09/24 09:00 69 22 97/57 96 04/09/24 08:45 75 22 90/54 95 04/09/24 08:30 77 20 89/55 96 04/09/24 08:15 81 14 100/56 95 04/09/24 08:00 98.3 F 75 16 94/58 95 04/09/24 07:45 78 19 91/64 96 04/09/24 07:30 78 22 95/58 96 04/09/24 07:15 77 19 82/38 89 L 04/09/24 07:00 80 27 H 95/58 90 L 04/09/24 06:45 73 17 107/59 96 04/09/24 06:30 72 12 94/56 96 04/09/24 06:15 72 21 101/58 96 04/09/24 06:00 70 21 101/65 96 04/09/24 05:45 70 15 100/63 97 04/09/24 05:30 71 15 98/61 97 04/09/24 05:15 70 19 110/63 97 04/09/24 05:00 67 15 102/62 97 04/09/24 04:45 68 15 102/61 97 04/09/24 04:30 69 15 102/62 97 04/09/24 04:15 68 18 99/57 97 04/09/24 04:00 98.1 F 64 16 97/59 96 04/09/24 03:45 65 16 99/57 97 04/09/24 03:30 65 22 96/54 96 04/09/24 03:15 63 15 98/59 98 04/09/24 03:00 64 12 93/58 96 04/09/24 02:45 64 14 95/60 97 04/09/24 02:30 64 11 L 92/56 97 04/09/24 02:15 64 15 89/57 97 04/09/24 02:00 65 18 93/58 96 04/09/24 01:45 67 17 85/55 97 04/09/24 01:30 68 15 89/55 97 04/09/24 01:15 71 16 93/57 96 04/09/24 01:00 73 18 90/58 94 L 04/09/24 00:49 82 20 80/55 96 04/09/24 00:47 85 24 73/52 95 04/09/24 00:45 74 14 79/51 96 04/09/24 00:30 74 17 84/57 96 04/09/24 00:15 78 23 83/57 92 L 04/09/24 00:10 77 20 83/57 95 04/09/24 00:00 98.0 F 78 18 92/65 96 04/08/24 23:45 79 22 93/51 95 04/08/24 23:30 79 16 83/56 88 L 04/08/24 23:15 80 12 88/60 93 L 04/08/24 23:00 80 15 96/66 93 L 04/08/24 22:54 80 20 96/66 94 L 04/08/24 22:00 98.1 F 80 18 95/60 95 04/08/24 21:52 98.1 F 80 16 96/66 95 04/08/24 21:15 84 22 78/57 95 04/08/24 20:45 84 22 75/54 96 04/08/24 20:00 87 22 74/51 96 04/08/24 19:45 89 22 65/51 96 04/08/24 19:42 99.3 F 89 20 75/52 96 04/08/24 19:30 92 20 71/51 94 L 04/08/24 19:00 92 20 86/53 94 L 04/08/24 18:30 96 20 101/63 94 L Intake and Output 04/09/24 04/09/24 04/09/24 06:59 14:59 22:59 Intake Total 3938.380 4385.313 400 Output Total 1615 885 575 Balance 47.613 1233.313 -175 Intake: IV 1000 1400 400 Piperacillin-Tazobactam 3 100 200 .375 gm In Sodium Chloride 0.9% 100 ml @ 25 mls/hr IVPB Q8H [facility] Rx#: [id number] Sodium Chloride 0.9% 1, 900 700 300 000 ml @ 100 mls/hr IV . Q10H ST[facility] Rx#:[id number] Vancomycin 1,500 mg In 500 Sodium Chloride 0.9% 500 ml @ 166.667 mls/hr IVPB Q16H [facility] Rx#:[id number] ceFAZolin 2 gm In Sodium 100 Chloride 0.9% 50 ml @ 100 mls/hr IVPB Q8HR [facility] Rx# :[id number] Intake, IV Titration 122.613 18.313 Amount Norepinephrine 4 mg In 122.613 18.313 Sodium Chloride 0.9% 250 ml @ 0.03 MCG/KG/MIN 8. 814 mls/hr IV .Q24H ONE Rx#:[id number] Oral 540 700 Output: Urine 1615 885 575 Other: Voiding Method Indwelling Catheter Indwelling Catheter Indwelling Catheter Weight 78.5 kg Results 04/09/24 01:41 04/09/24 15:55 Cardiac Enzymes 04/08/24 04/08/24 04/09/24 Range/Units 18:10 18:10 01:41 AST 94 H (17-59) U/L Troponin I 0.740 H* 2.610 H* (0.000-0.034) ng/mL 04/09/24 04/09/24 Range/Units 04:06 04:06 AST 106 H (17-59) U/L Troponin I 2.790 H* (0.000-0.034) ng/mL Coagulation 04/08/24 04/09/24 04/09/24 Range/Units 18:10 01:41 01:41 PT 13.1 H 13.9 H (10.0-12.5) sec APTT 27.0 57.3 H (22.0-30.0) sec CBC 04/08/24 04/09/24 Range/Units 18:10 01:41 WBC 13.0 H 11.9 H (3.8-10.6) k/uL RBC 4.62 4.00 L (4.30-5.90) m/uL Hgb 14.2 12.2 L (13.0-17.5) gm/dL Hct 41.0 36.2 L (39.0-53.0) % Plt Count 186 171 (150-450) k/uL Comprehensive Metabolic Panel 04/08/24 04/09/24 04/09/24 Range/Units 18:10 04:06 09:32 Sodium 121 L 127 L (137-145) mmol/L Potassium 4.6 3.4 L 3.6 (3.5-5.1) mmol/L Chloride 91 L 104 (98-107) mmol/L Carbon Dioxide 18 L 14 L (22-30) mmol/L BUN 26 H 26 H (9-20) mg/dL Creatinine 1.56 H 1.09 (0.66-1.25) mg/dL Glucose 98 95 (74-99) mg/dL Calcium 8.4 7.5 L (8.4-10.2) mg/dL AST 94 H 106 H (17-59) U/L ALT 50 H 57 H (4-49) U/L Alkaline Phosphatase 141 H 112 (38-126) U/L Total Protein 6.2 L 5.2 L (6.3-8.2) g/dL Albumin 3.3 L 2.5 L (3.5-5.0) g/dL 04/09/24 Range/Units 15:55 Sodium (137-145) mmol/L Potassium 3.7 (3.5-5.1) mmol/L Chloride (98-107) mmol/L Carbon Dioxide (22-30) mmol/L BUN (9-20) mg/dL Creatinine (0.66-1.25) mg/dL Glucose (74-99) mg/dL Calcium (8.4-10.2) mg/dL AST (17-59) U/L ALT (4-49) U/L Alkaline Phosphatase (38-126) U/L Total Protein (6.3-8.2) g/dL Albumin (3.5-5.0) g/dL Current Medications Generic Name Dose Route Start Last Admin Trade Name Freq PRN Reason Stop Dose Admin Acetaminophen 650 mg 04/08/24 21:40 Acetaminophen Tab 325 Mg Tab PO Q6HR PRN Fever and/ or Pain Aspirin 81 mg 04/09/24 09:00 04/09/24 08:50 Aspirin 81 Mg PO 81 mg DAILY RELL Administration Fluticasone Propionate 1 spray 04/08/24 19:33 Fluticasone 50mcg/Harbinger Nasal 16gm EA NOSTRIL DAILY PRN Allergy Symptoms Heparin Sodium (Porcine) 0 unit 04/08/24 19:33 Heparin Sodium 1,000 Un/Ml (10ml Vl) IV PER PROTOCOL PRN Low PTT Protocol Piperacillin Sod/Tazobactam 100 mls @ 25 mls/hr 04/08/24 20:00 04/09/24 11:24 Sod 3.375 gm/ Sodium Chloride IVPB 25 mls/hr Q8H RELL Administration Protocol Heparin Sodium/Sodium Chloride 250 mls @ 9.253 mls/hr 04/08/24 19:45 04/08/24 19:59 25,000 unit/ Sodium Chloride IV 12 units/kg/hr .Q24H RELL 9.253 mls/hr Administration Protocol 12 UNITS/KG/HR Norepinephrine Bitartrate 4 mg 254 mls @ 8.814 mls/hr 04/08/24 20:39 04/09/24 09:55 / Sodium Chloride IV 04/09/24 20:38 0 mcg/kg/min .Q24H ONE 0 mls/hr Titration Protocol 0.03 MCG/KG/MIN Sodium Chloride 1,000 mls @ 100 mls/hr 04/09/24 11:15 04/09/24 11:25 Saline 0.9% IV 100 mls/hr .Q10H RELL Administration Cefazolin Sodium 2 gm/ Sodium 50 mls @ 100 mls/hr 04/09/24 16:00 04/09/24 15:39 Chloride IVPB 100 mls/hr Q8HR RELL Administration Lidocaine 1 patch 04/08/24 21:40 Lidocaine 4% Patch TOPICAL DAILY PRN Pain Miscellaneous Information 1 each 04/09/24 05:20 Potassium Replacement Protocol 1 Each Misc MISCELLANE DAILY PRN Per Protocol Protocol Naloxone HCl 0.2 mg 04/08/24 21:18 Naloxone 0.4 Mg/Ml 1 Ml Vial IV Q2M PRN Opioid Reversal Intake and Output 04/09/24 04/09/24 04/09/24 06:59 14:59 22:59 Intake Total 9016.486 7433.313 400 Output Total 1615 885 575 Balance 47.613 1233.313 -175 Intake: IV 1000 1400 400 Piperacillin-Tazobactam 3 100 200 .375 gm In Sodium Chloride 0.9% 100 ml @ 25 mls/hr IVPB Q8H [facility] Rx#: [id number] Sodium Chloride 0.9% 1, 900 700 300 000 ml @ 100 mls/hr IV . Q10H [facility] Rx#:[id number] Vancomycin 1,500 mg In 500 Sodium Chloride 0.9% 500 ml @ 166.667 mls/hr IVPB Q16H [facility] Rx#:[id number] ceFAZolin 2 gm In Sodium 100 Chloride 0.9% 50 ml @ 100 mls/hr IVPB Q8HR [facility] Rx# :[id number] Intake, IV Titration 122.613 18.313 Amount Norepinephrine 4 mg In 122.613 18.313 Sodium Chloride 0.9% 250 ml @ 0.03 MCG/KG/MIN 8. 814 mls/hr IV .Q24H ONE Rx#:[id number] Oral 540 700 Output: Urine 1615 885 575 Other: Voiding Method Indwelling Catheter Indwelling Catheter Indwelling Catheter Weight 78.5 kg 04/09/24 01:41 04/09/24 15:55
[2024-04-09] MEDS: carvediloL 12.5 MG TAB PO SCH (19:04)
--- NOTE | 2024-04-09 21:33 | P.HPIM ---
History of Present Illness H&P Date: 04/09/24 Chief Complaint: Diarrhea and weakness Patient is a 64-year-old male with a past medical history of hypertension, obstructive sleep apnea, infective endocarditis in 2016, history of gastric ulcer and prior history of back surgery and currently everyday smoker. Patient presents to ER with complaints of generalized weakness fatigue and diarrhea for 3 to 4 days. Patient states that he has been having diarrhea and progressive weakness. Patient is unable to stand up while going to the bathroom and had diarrhea all over. EMS was called by his . Patient was febrile wi th Tmax of 102.3 on admission and heart rate 101 and pulse ox 94% on room air. Patient became hypotensive with blood pressure went down to 86 over 53 mmHg. Patient otherwise denies any complaints of abdominal pain. Denies any dysuria or hematuria. Denies any chest pain or shortness of breath. No cough or sputum production. No nausea or vomiting. Chest x-ray showed low lung volumes with generalized hazy appearance which could represent atelectasis versus pulmonary edema correlate with serum BNP. CT of the abdomen pelvis showed no evidence for acute abdominal process. Prostatomegaly, correlate with serum PSA, increased kyphosis of the spine due to T9 compression deformity with complete height loss anteriorly. EKG showed possible left atrial enlargement left anterior fascicular block. 2D echocardiogram showed left ventricular ejection fraction estimated at 30 to 35%, apical hypokinesia and mildly increased septal wall thickness. Normal right ventricular size and function. Mild aortic stenosis with peak gradient of 23 mmHg and a mean gradient of 40 mmHg. Moderate to severe AR Laboratory pressure WBC 13.0 hemoglobin 14.2 and platelets 186 Sodium 121 potassium 4.6 chloride 91 bicarb is 18 BUN 26 and creatinine 1.56 and lactic acid 4.7 AST 94 ALT 50 alk phos 141 and troponin 0.740 proBNP 2830 Urinalysis showed increased versus gravity with small leukocyte esterase and 6 RBCs and 15 WBCs. Influenza A B RSV and COVID-19 PCR not detected. Review of Systems Constitutional: Patient was febrile on admission. Denied chills.. Patient does have generalized weakness and fatigue. Cardiovascular: Patient denies any chest pain or short of breath no pal pitations. Respiratory: patient denied any cough is from production. No shortness of breath Neurologic: Patient denied any numbness or tingling headache. Musculoskeletal: Patient denies any complaints of joint swelling or deformity. Skin: Negative Psychiatric: Negative Endocrine: No heat or cold intolerance. No recent weight gain. Genitourinary: No dysuria or hematuria. All other 14 point ROS negative except the above Past Medical History Past Medical History: Hypertension, Osteoarthritis (OA), Skin Disorder, Sleep Apnea/CPAP/BIPAP Additional Past Medical History / Comment(s): exczema, heart murmur, hx. of endocarditis 2014, used to use CPAP, hx. of gastric ulcer History of Any Multi-Drug Resistant Organisms: MRSA Date of last positivie culture/infection: 2018 MDRO Source:: spine Past Surgical History: Back Surgery Additional Past Surgical History / Comment(s): LYMPH NODE REMOVEDbenign, had spinal/back surgery related to MRSA infection, surg. for gastric ulcer Past Anesthesia/Blood Transfusion Reactions: No Reported Reaction Past Psychological History: No Psychological Hx Reported Smoking Status: Current every day smoker Past Alcohol Use History: Occasional Past Drug Use History: None Reported - Past Family History Father Family Medical History: Coronary Artery Disease (CAD), Liver Disease Mother Family Medical History: Myocardial Infarction (WA) Medications and Allergies Home Medications Medication Instructions Recorded Confirmed Type carvediloL [Coreg] 12.5 mg PO BID 10/16/21 04/08/24 History Ketorolac [Toradol] 10 mg PO Q6HR PRN #15 tab 04/02/24 04/08/24 Rx Lidocaine 5% Patch [Lidoderm 5% 1 patch TOPICAL DAILY PRN #30 patch 04/02/24 04/08/24 Rx Patch] Orphenadrine [Norflex] 100 mg PO Q12H PRN #20 tab 04/02/24 04/08/24 Rx Fluticasone Nasal [place] [Flonase 1 spray EA NOSTRIL DAILY PRN 04/08/24 04/08/24 History Nasal [place]] Losartan [Cozaar] 25 mg PO DAILY 04/08/24 04/08/24 History Allergies Allergy/AdvReac Type Severity Reaction Status Date / Time No Known Allergies Allergy Verified 04/08/24 18:32 Physical Exam Vitals: Vital Signs Temp Pulse Pulse Resp BP BP Pulse Ox 04/09/24 09:00 69 22 97/57 96 04/09/24 08:45 75 22 90/54 95 04/09/24 08:30 77 20 89/55 96 04/09/24 08:15 81 14 100/56 95 0518 08:00 98.3 F 75 16 94/58 95 051824 07:45 78 19 91/64 96 0518 07:30 78 22 95/58 96 24 07:15 77 19 82/38 89 L 04/09/24 07:00 80 27 H 95/58 90 L 04/09/24 06:45 73 17 107/59 96 04/09/24 06:30 72 12 94/56 96 05 06:15 72 21 101/58 96 05 06:00 70 21 101/65 96 04/09/24 05:45 70 15 100/63 97 04/09/24 05:30 71 15 98/61 97 04/09/24 05:15 70 19 110/63 97 04/09/24 05:00 67 15 102/62 97 04/09/24 04:45 68 15 102/61 97 04/09/24 04:30 69 15 102/62 97 04/09/24 04:15 68 18 99/57 97 04/09/24 04:00 98.1 F 64 16 97/59 96 04/09/24 03:45 65 16 99/57 97 04/09/24 03:30 65 22 96/54 96 04/09/24 03:15 63 15 98/59 98 04/09/24 03:00 64 12 93/58 96 04/09/24 02:45 64 14 95/60 97 24 02:30 64 11 L 92/56 97 04/09/24 02:15 64 15 89/57 97 18 02:00 65 18 93/58 96 0518/24 01:45 67 17 85/55 97 051824 01:30 68 15 89/55 97 18/24 01:15 71 16 93/57 96 051824 01:00 73 18 90/58 94 L 04/09/24 00:49 82 20 80/55 96 05/18/24 00:47 85 24 73/52 95 05/18/24 00:45 74 14 79/51 96 051824 00:30 74 17 84/57 96 051824 00:15 78 23 83/57 92 L 04/09/24 00:10 77 20 83/57 95 04/09/24 00:00 98.0 F 78 18 92/65 96 04/08/24 23:45 79 22 93/51 95 04/08/24 23:30 79 16 83/56 88 L 04/08/24 23:15 80 12 88/60 93 L 04/08/24 23:00 80 15 96/66 93 L 04/08/24 22:54 80 20 96/66 94 L 04/08/24 22:00 98.1 F 80 18 95/60 95 04/08/24 21:52 98.1 F 80 16 96/66 95 04/08/24 21:15 84 22 78/57 95 04/08/24 20:45 84 22 75/54 96 04/08/24 20:00 87 22 74/51 96 04/08/24 19:45 89 22 65/51 96 04/08/24 19:42 99.3 F 89 20 75/52 96 04/08/24 19:30 92 20 71/51 94 L 04/08/24 19:00 92 20 86/53 94 L 04/08/24 18:30 96 20 101/63 94 L 04/08/24 18:15 98 20 94 L 04/08/24 18:00 95 20 94/66 95 04/08/24 17:55 102.3 F H 101 H 18 112/68 94 L Intake and Output 04/08/24 04/09/24 04/09/24 22:59 06:59 14:59 Intake Total 417.571 6830.613 317.138 Output Total 125 1615 425 Balance 481.415 47.613 -107.862 Intake: IV 600 1000 300 Piperacillin-Tazobactam 3 100 100 .375 gm In Sodium Chloride 0.9% 100 ml @ 25 mls/hr IVPB Q8H [facility] Rx#: [id number] Sodium Chloride 0.9% 1, 100 900 200 000 ml @ 100 mls/hr IV . Q10H [facility] Rx#:[id number] Vancomycin 1,500 mg In 500 Sodium Chloride 0.9% 500 ml @ 166.667 mls/hr IVPB Q16H [facility] Rx#:[id number] Intake, IV Titration 6.415 122.613 17.138 Amount Norepinephrine 4 mg In 6.415 122.613 17.138 Sodium Chloride 0.9% 250 ml @ 0.03 MCG/KG/MIN 8. 814 mls/hr IV .Q24H [facility] Rx#:[id number] Oral 540 Output: Urine 125 1615 425 Other: Voiding Method Indwelling Catheter Indwelling Catheter Weight 77.111 kg 78.5 kg PHYSICAL EXAMINATION: Patient is lying in the bed comfortably, no acute distress, awake alert and oriented.. HEENT: Normocephalic. Neck is supple. Pupils reactive. Nostrils clear. Oral cavity is moist. Neck reveals no JVD, carotid bruits, or thyromegaly. CHEST EXAMINATION: Trachea is central. Symmetrical expansion. Lung agosto clear to auscultation and percussion. CARDIAC: Normal S1, S2 with no gallops. Diastolic murmur present ABDOMEN: Soft. Bowel sounds normal. No organomegaly. No abdominal bruits. Extremities: reveal no edema. No clubbing or cyanosis Neurologically awake, alert, oriented x3 with well-coordinated movements. No focal deficits noted Skin: No rash or skin lesions. Psychiatric: Coperative. Nonsuicidal Musculoskeletal: No joint swelling or deformity. Normal range of motion. Results CBC & Chem 7: 04/09/24 01:41 04/09/24 15:55 Labs: Abnormal Lab Results - Last 24 Hours (Table) 04/08/24 04/08/24 04/08/24 Range/Units 18:10 18:10 18:10 WBC 13.0 H (3.8-10.6) k/uL RBC (4.30-5.90) m/uL Hgb (13.0-17.5) gm/dL Hct (39.0-53.0) % Neutrophils # 11.7 H (1.3-7.7) k/uL Lymphocytes # 0.2 L (1.0-4.8) k/uL Monocytes # 1.1 H (0-1.0) k/uL PT 13.1 H (10.0-12.5) sec INR 1.2 H (<1.2) APTT (22.0-30.0) sec Sodium 121 L (137-145) mmol/L Potassium (3.5-5.1) mmol/L Chloride 91 L (98-107) mmol/L Carbon Dioxide 18 L (22-30) mmol/L BUN 26 H (9-20) mg/dL Creatinine 1.56 H (0.66-1.25) mg/dL Plasma Lactic Acid Arjun (0.7-2.0) mmol/L Calcium (8.4-10.2) mg/dL AST 94 H (17-59) U/L ALT 50 H (4-49) U/L Alkaline Phosphatase 141 H (38-126) U/L Troponin I (0.000-0.034) ng/mL Total Protein 6.2 L (6.3-8.2) g/dL Albumin 3.3 L (3.5-5.0) g/dL Ur Specific Matthews (1.001-1.035) Urine Protein (Negative) Urine Ketones (Negative) Urine Blood (Negative) Ur Leukocyte Esterase (Negative) Urine RBC (0-5) /hpf Urine WBC (0-5) /hpf Urine WBC Clumps (None) /hpf Urine Bacteria (None) /hpf Hyaline Casts (0-2) /lpf Urine Mucus (None) /hpf 04/08/24 04/08/24 04/08/24 Range/Units 18:10 18:10 22:20 WBC (3.8-10.6) k/uL RBC (4.30-5.90) m/uL Hgb (13.0-17.5) gm/dL Hct (39.0-53.0) % Neutrophils # (1.3-7.7) k/uL Lymphocytes # (1.0-4.8) k/uL Monocytes # (0-1.0) k/uL PT (10.0-12.5) sec INR (<1.2) APTT (22.0-30.0) sec Sodium (137-145) mmol/L Potassium (3.5-5.1) mmol/L Chloride (98-107) mmol/L Carbon Dioxide (22-30) mmol/L BUN (9-20) mg/dL Creatinine (0.66-1.25) mg/dL Plasma Lactic Acid Arjun 4.7 H* (0.7-2.0) mmol/L Calcium (8.4-10.2) mg/dL AST (17-59) U/L ALT (4-49) U/L Alkaline Phosphatase (38-126) U/L Troponin I 0.740 H* (0.000-0.034) ng/mL Total Protein (6.3-8.2) g/dL Albumin (3.5-5.0) g/dL Ur Specific Matthews 1.042 H (1.001-1.035) Urine Protein 1+ H (Negative) Urine Ketones 1+ H (Negative) Urine Blood Moderate H (Negative) Ur Leukocyte Esterase Small H (Negative) Urine RBC 6 H (0-5) /hpf Urine WBC 15 H (0-5) /hpf Urine WBC Clumps Rare H (None) /hpf Urine Bacteria Rare H (None) /hpf Hyaline Casts 8 H (0-2) /lpf Urine Mucus Rare H (None) /hpf 04/09/24 04/09/24 04/09/24 Range/Units 01:41 01:41 01:41 WBC 11.9 H (3.8-10.6) k/uL RBC 4.00 L (4.30-5.90) m/uL Hgb 12.2 L (13.0-17.5) gm/dL Hct 36.2 L (39.0-53.0) % Neutrophils # 10.2 H (1.3-7.7) k/uL Lymphocytes # 0.4 L (1.0-4.8) k/uL Monocytes # (0-1.0) k/uL PT 13.9 H (10.0-12.5) sec INR 1.3 H (<1.2) APTT 57.3 H (22.0-30.0) sec Sodium (137-145) mmol/L Potassium (3.5-5.1) mmol/L Chloride (98-107) mmol/L Carbon Dioxide (22-30) mmol/L BUN (9-20) mg/dL Creatinine (0.66-1.25) mg/dL Plasma Lactic Acid Arjun (0.7-2.0) mmol/L Calcium (8.4-10.2) mg/dL AST (17-59) U/L ALT (4-49) U/L Alkaline Phosphatase (38-126) U/L Troponin I (0.000-0.034) ng/mL Total Protein (6.3-8.2) g/dL Albumin (3.5-5.0) g/dL Ur Specific Matthews (1.001-1.035) Urine Protein (Negative) Urine Ketones (Negative) Urine Blood (Negative) Ur Leukocyte Esterase (Negative) Urine RBC (0-5) /hpf Urine WBC (0-5) /hpf Urine WBC Clumps (None) /hpf Urine Bacteria (None) /hpf Hyaline Casts (0-2) /lpf Urine Mucus (None) /hpf 04/09/24 04/09/24 04/09/24 Range/Units 01:41 04:06 04:06 WBC (3.8-10.6) k/uL RBC (4.30-5.90) m/uL Hgb (13.0-17.5) gm/dL Hct (39.0-53.0) % Neutrophils # (1.3-7.7) k/uL Lymphocytes # (1.0-4.8) k/uL Monocytes # (0-1.0) k/uL PT (10.0-12.5) sec INR (<1.2) APTT (22.0-30.0) sec Sodium 127 L (137-145) mmol/L Potassium 3.4 L (3.5-5.1) mmol/L Chloride (98-107) mmol/L Carbon Dioxide 14 L (22-30) mmol/L BUN 26 H (9-20) mg/dL Creatinine (0.66-1.25) mg/dL Plasma Lactic Acid Arjun (0.7-2.0) mmol/L Calcium 7.5 L (8.4-10.2) mg/dL AST 106 H (17-59) U/L ALT 57 H (4-49) U/L Alkaline Phosphatase (38-126) U/L Troponin I 2.610 H* 2.790 H* (0.000-0.034) ng/mL Total Protein 5.2 L (6.3-8.2) g/dL Albumin 2.5 L (3.5-5.0) g/dL Ur Specific Matthews (1.001-1.035) Urine Protein (Negative) Urine Ketones (Negative) Urine Blood (Negative) Ur Leukocyte Esterase (Negative) Urine RBC (0-5) /hpf Urine WBC (0-5) /hpf Urine WBC Clumps (None) /hpf Urine Bacteria (None) /hpf Hyaline Casts (0-2) /lpf Urine Mucus (None) /hpf Thrombosis Risk Factor Assmnt - DVT/VTE Prophylaxis DVT/VTE Prophylaxis: Pharmacologic Prophylaxis ordered - Choose All That Apply Any of the Below Risk Factors Present?: Yes Each Factor Represents 1 point: Sepsis (< 1month) Each Risk Factor Represents 2 Points: Age 61-74 years, Central venous access Other congenital or acquired thrombophilia - If yes, enter type in comment: No Thrombosis Risk Factor Assessment Total Risk Factor Score: 5 Thrombosis Risk Factor Assessment Level: High Risk Assessment and Plan Assessment: Acute diarrhea with generalized weakness and fatigue Sepsis/septic shock requiring pressor support. Definitive etiology not known at this time. Elevated troponin level possible type II [place] Acute CHF with ejection fraction 30 to 35%, apical hypokinesis EF, mild and moderate to severe AR Acute kidney injury with possible ATN secondary to hemodynamic instability. 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 Prostatomegaly as noted on CT of the abdomen pelvis. Elevated liver enzymes Currently everyday smoker DVT prophylaxis and GI prophylaxis. Plan: Patient is currently in the MICU. Patient was on pressor support with Levophed. Continue with IV hydration with normal saline and continue to monitor volume status. Continue with antibiotics with Zosyn. Patient is on heparin drip due to elevated troponin level and cardiomyopathy. Continue with aspirin Follow-up blood cultures and urine cultures. Critical care team, cardiology and ID is on board. Prognosis is guarded at this time. Time with Patient: Greater than 30
[2024-04-09] MEDS: FAMOTIDINE 20 MG TAB PO SCH (23:27)
[2024-04-10] MEDS: HEPARIN SODIUM 1,000 UN/ML (10ML VL) IV PRN (01:18)
--- NOTE | 2024-04-10 05:26 | P.PN ---
Subjective Progress Note Date: 04/10/24 HISTORY OF PRESENTING ILLNESS 64-year-old male with past medical history of hypertension, obstructive sleep apnea, prior endocarditis in 2016, spinal surgery secondary to MRSA infection, chronic smoker, with residual severe aortic regurgitation based off CHRIS from 2019. He is known to Dr. Quezada. He has never had any cardiac interventions done in the past. He has not had any prior cardiac catheterization. This time he presented to the hospital because of complaints of substernal chest pressure, shortness of breath increased cough. He was also reporting fever of 102. He also reports generalized weakness and fatigue along with poor oral intake and diarrhea. On admission labs WBC 11.9, hemoglobin 12.2, platelet 171, sodium 127, BUN 26, creatinine 1.09. Troponin 2.6, 2.7., Elevated lactate On admission he was hypertensive for which she was placed on low-dose norepinephrine drip. He also got 3 L fluid resuscitation for sepsis. Echo showed an EF of 30 to 35%, apical hypokinesia, mild aortic stenosis and moderate to severe aortic regurgitation. Progress note 04/10/2024 Patient is doing better as compared to yesterday. He is off pressors, systolic blood pressure 110 mmHg, heart rate 90 beats minute, sinus rhythm. No arrhythmias on telemetry monitoring over last 6 hours. IV fluids 100 cc/h, good urine output, able to tolerate oral intake, on liquid diet at this time. No abdominal pain reported. No reported chest pain chest pressure PHYSICAL EXAMINATION Vital signs reviewed. Head: Normocephalic. Eyes: Sclerae nonicteric. Neck: Brisk carotid upstroke, no jugular venous distention. Lungs: Clear to auscultation. Heart: Regular rate and rhythm, S1-S2, no S3, 2/6 systolic and diastolic murmur. Abdomen: Soft nontender, positive bowel sounds. Extremities: No edema, intact distal pulses. Neuro: Alert, oritented, no focal deficits. Detailed neuro exam was not performed. ASSESSMENT Elevated troponin, likely type II NSTEMI versus stress cardiomyopathy Septic shock , unknown source at present Prior history of endocarditis involving aortic valve in 2016 Prior moderate ascending aortic regurgitation Generalized weakness and diarrhea Essential hypertension Hyponatremia BIN, secondary dehydration Tobacco smoker Echo showed an EF of 30 to 35%, apical hypokinesia, mild aortic stenosis and moderate to severe aortic regurgitation. PLAN Aspirin 81 mg, Continue IV heparin drip for next 24 hours for NSTEMI management. And is off pressors., Systolic blood pressure 110 mmHg, will start low-dose metoprolol XL 25 mg daily Watch for any signs of fluid overload IV fluids and IV antibiotics and infectious workup as per primary and ICU team Once patient is stable from sepsis standpoint, would recommend ischemic evaluation for cardiomyopathy and possible CHRIS to evaluate for aortic regurgitation to evaluate the need for possible surgical intervention evaluation Objective - Vital Signs Vital signs: Vital Signs Temp 98.1 F 04/10/24 04:00 Pulse 77 04/10/24 04:00 Resp 20 04/10/24 04:00 BP 109/67 04/10/24 04:00 Pulse Ox 94 L 04/10/24 04:00 FiO2 Intake & Output 04/09/24 04/09/24 04/10/24 06:59 18:59 06:59 Intake Total 2269.028 2518.313 1471.267 Output Total 1740 1460 350 Balance 521.134 8580.313 1121.267 Weight 78.5 kg Intake: IV 1600 1800 1200 Piperacillin-Tazobactam 3 100 200 .375 gm In Sodium Chloride 0.9% 100 ml @ 25 mls/hr IVPB Q8H [facility] Rx#: [id number] Sodium Chloride 0.9% 1, 1000 1000 000 ml @ 100 mls/hr IV . Q10H [facility] Rx#:[id number] Vancomycin 1,500 mg In 500 500 Sodium Chloride 0.9% 500 ml @ 166.667 mls/hr IVPB Q16H [facility] Rx#:[id number] ceFAZolin 2 gm In Sodium 100 1200 Chloride 0.9% 50 ml @ 100 mls/hr IVPB Q8HR [facility] Rx# :[id number] Intake, IV Titration 129.028 18.313 271.267 Amount Heparin Sod,Pork in 0.45% 271.267 NaCl 25,000 unit In 0.45 % NaCl 1 250ml.bag @ 12 UNITS/KG/HR 9.253 mls/hr IV .Q24H [facility] Rx#: [id number] Norepinephrine 4 mg In 129.028 18.313 Sodium Chloride 0.9% 250 ml @ 0.03 MCG/KG/MIN 8. 814 mls/hr IV .Q24H ONE Rx#:[id number] Oral 540 700 Output: Urine 1740 1460 350 Other: Voiding Method Indwelling Catheter Indwelling Catheter Indwelling Catheter - Labs CBC & Chem 7: 04/09/24 01:41 04/09/24 15:55 Labs: Abnormal Lab Results - Last 24 Hours (Table) 04/09/24 04/09/24 04/10/24 Range/Units 04:06 04:06 00:20 APTT 32.4 H (22.0-30.0) sec Troponin I 2.790 H* (0.000-0.034) ng/mL Procalcitonin 27.40 H (0.02-0.09) ng/mL Microbiology - Last 24 Hours (Table) 04/08/24 18:25 Blood Culture Gram Stain - Preliminary Blood Blood Culture - Preliminary Molecular ID 04/08/24 18:10 Blood Culture Gram Stain - Preliminary Blood
[2024-04-10] MEDS: METOPROLOL SUCCINATE (ER) 25 MG TAB.ER.24H PO SCH (08:09)
--- NOTE | 2024-04-10 09:18 | P.CONS ---
History of Present Illness - Reason for Consult Consult date: 04/09/24 Septic shock Requesting physician: Gianluca Chiang - Chief Complaint Weakness and diarrhea x few days - History of Present Illness Patient is a 64-year-old male past medical history of hypertension osteoarthritis sleep apnea did have a history of chronic back pain in this patient who is status post lumbar surgery done at [facility] however the patient not sure exactly if he did have decompression or any hardware placement, patient presented to [facility] ER last evening concerning for weakness and diarrhea patient mention he was having diarrhea for the last 3 days with multiple loose stools 1 was feeling very weak patient did have episode of fall but he was unable to get up EMS was called and and the patient was brought into the hospital patient denies any headache no URI symptoms denies any chest pain shortness of breath occasional cough no nausea noted no abdominal pain did have diarrhea but no blood or mucus in the stool pa tient did have a chronic back pain did mention slightly worsening over the last few days without any history of any trauma describing the pain to be moderate without any radiation no weakness in the leg no bowel or bladder problem patient was noticed to be febrile on presentation to the hospital with a temperature of 102.3 F patient was not tachycardic he was hypotensive requiring admission to ICU on pressor support and currently has been weaned off patient is not hypoxic or need for supplemental oxygen, patient was noticed to have a white count of 13,000 with a left shift creatinine was 1.56 liver enzymes mildly elevated troponin was elevated urine is mildly positive influenza RSV COVID testing negative blood cultures done came back positive with MSSA patient did have a chest x-ray low lung volumes with generalized hazy appearance could represent atelectasis versus pulmonary edema patient also have abdominal pelvis CT no evidence for acute abdominal process prostatomegaly increased kyphosis of the spine due to T9 compression deformity with complete height loss patient did have an echocardiogram EF of 30 to 35% mild aortic stenosis did not mention any vegetation Review of Systems Positive point and negatives has been mentioned in the HPI, complete review of systems was performed and all other systems are negative Past Medical History Past Medical History: Hypertension, Osteoarthritis (OA), Skin Disorder, Sleep Apnea/CPAP/BIPAP Additional Past Medical History / Comment(s): exczema, heart murmur, hx. of endocarditis 2014, used to use CPAP, hx. of gastric ulcer History of Any Multi-Drug Resistant Organisms: MRSA Year Discovered:: 2019 MDRO Source:: spine Past Surgical History: Back Surgery Additional Past Surgical History / Comment(s): LYMPH NODE REMOVEDbenign, had spinal/back surgery related to MRSA infection, surg. for gastric ulcer Past Anesthesia/Blood Transfusion Reactions: No Reported Reaction Past Psychological History: No Psychological Hx Reported Smoking Status: Current every day smoker Past Alcohol Use History: Occasional Past Drug Use History: None Reported - Past Family History Father Family Medical History: Coronary Artery Disease (CAD), Liver Disease Mother Family Medical History: Myocardial Infarction (LA) Medications and Allergies Home Medications Medication Instructions Recorded Confirmed Type carvediloL [Coreg] 12.5 mg PO BID 10/16/21 04/08/24 History Ketorolac [Toradol] 10 mg PO Q6HR PRN #15 tab 04/02/24 04/08/24 Rx Lidocaine 5% Patch [Lidoderm 5% 1 patch TOPICAL DAILY PRN #30 patch 04/02/24 04/08/24 Rx Patch] Orphenadrine [Norflex] 100 mg PO Q12H PRN #20 tab 04/02/24 04/08/24 Rx Fluticasone Nasal [place] [Flonase 1 spray EA NOSTRIL DAILY PRN 04/08/24 04/08/24 History Nasal [place]] Losartan [Cozaar] 25 mg PO DAILY 04/08/24 04/08/24 History Allergies Allergy/AdvReac Type Severity Reaction Status Date / Time No Known Allergies Allergy Verified 04/08/24 18:32 Physical Exam Vitals: Vital Signs Temp Pulse Pulse Resp BP BP Pulse Ox 04/09/24 15:00 79 20 98/56 97 04/09/24 14:45 77 14 102/55 97 04/09/24 14:30 76 20 95/56 95 04/09/24 14:15 75 19 94/58 96 04/09/24 14:00 79 22 92/57 95 04/09/24 13:45 82 17 108/64 96 04/09/24 13:30 79 21 95/59 95 04/09/24 13:15 76 18 87/58 96 04/09/24 13:00 82 22 101/62 91 L 04/09/24 12:45 76 23 89/52 97 04/09/24 12:30 80 28 H 86/60 96 05/18/24 12:15 77 45 H 94/54 95 04/09/24 12:00 98.0 F 78 19 91/55 97 04/09/24 11:45 73 10 L 95/58 96 04/09/24 11:30 79 21 96/56 95 04/09/24 11:15 74 17 101/62 97 04/09/24 11:00 75 13 97/57 96 04/09/24 10:45 74 14 103/60 96 04/09/24 10:30 73 13 97/61 97 04/09/24 10:15 75 16 91/58 92 L 04/09/24 10:00 71 15 105/61 97 04/09/24 09:45 72 17 93/57 95 04/09/24 09:30 75 18 107/61 97 04/09/24 09:15 74 24 103/54 97 04/09/24 09:00 69 22 97/57 96 04/09/24 08:45 75 22 90/54 95 04/09/24 08:30 77 20 89/55 96 04/09/24 08:15 81 14 100/56 95 04/09/24 08:00 98.3 F 75 16 94/58 95 04/09/24 07:45 78 19 91/64 96 04/09/24 07:30 78 22 95/58 96 04/09/24 07:15 77 19 82/38 89 L 04/09/24 07:00 80 27 H 95/58 90 L 04/09/24 06:45 73 17 107/59 96 04/09/24 06:30 72 12 94/56 96 04/09/24 06:15 72 21 101/58 96 24 06:00 70 21 101/65 96 04/09/24 05:45 70 15 100/63 97 24 05:30 71 15 98/61 97 04/09/24 05:15 70 19 110/63 97 04/09/24 05:00 67 15 102/62 97 [id number] 04:45 68 15 102/61 97 1824 04:30 69 15 102/62 97 [id number] 04:15 68 18 99/57 97 04/09/24 04:00 98.1 F 64 16 97/59 96 04/09/24 03:45 65 16 99/57 97 04/09/24 03:30 65 22 96/54 96 04/09/24 03:15 63 15 98/59 98 04/09/24 03:00 64 12 93/58 96 04/09/24 02:45 64 14 95/60 97 04/09/24 02:30 64 11 L 92/56 97 04/09/24 02:15 64 15 89/57 97 04/09/24 02:00 65 18 93/58 96 04/09/24 01:45 67 17 85/55 97 04/09/24 01:30 68 15 89/55 97 04/09/24 01:15 71 16 93/57 96 04/09/24 01:00 73 18 90/58 94 L 04/09/24 00:49 82 20 80/55 96 04/09/24 00:47 85 24 73/52 95 04/09/24 00:45 74 14 79/51 96 04/09/24 00:30 74 17 84/57 96 04/09/24 00:15 78 23 83/57 92 L 04/09/24 00:10 77 20 83/57 95 04/09/24 00:00 98.0 F 78 18 92/65 96 04/08/24 23:45 79 22 93/51 95 04/08/24 23:30 79 16 83/56 88 L 04/08/24 23:15 80 12 88/60 93 L 04/08/24 23:00 80 15 96/66 93 L 04/08/24 22:54 80 20 96/66 94 L 04/08/24 22:00 98.1 F 80 18 95/60 95 04/08/24 21:52 98.1 F 80 16 96/66 95 04/08/24 21:15 84 22 78/57 95 04/08/24 20:45 84 22 75/54 96 04/08/24 20:00 87 22 74/51 96 04/08/24 19:45 89 22 65/51 96 04/08/24 19:42 99.3 F 89 20 75/52 96 04/08/24 19:30 92 20 71/51 94 L 04/08/24 19:00 92 20 86/53 94 L 04/08/24 18:30 96 20 101/63 94 L 04/08/24 18:15 98 20 94 L 04/08/24 18:00 95 20 94/66 95 04/08/24 17:55 102.3 F H 101 H 18 112/68 94 L Intake and Output 04/09/24 04/09/24 04/09/24 06:59 14:59 22:59 Intake Total 4155.778 5268.313 Output Total 1615 885 Balance 47.613 1233.313 Intake: IV 1000 1400 Piperacillin-Tazobactam 3 100 200 .375 gm In Sodium Chloride 0.9% 100 ml @ 25 mls/hr IVPB Q8H [facility] Rx#: [id number] Sodium Chloride 0.9% 1, 900 700 000 ml @ 100 mls/hr IV . Q10H [facility] Rx#:[id number] Vancomycin 1,500 mg In 500 Sodium Chloride 0.9% 500 ml @ 166.667 mls/hr IVPB Q16H [facility] Rx#:[id number] Intake, IV Titration 122.613 18.313 Amount Norepinephrine 4 mg In 122.613 18.313 Sodium Chloride 0.9% 250 ml @ 0.03 MCG/KG/MIN 8. 814 mls/hr IV .Q24H [facility] Rx#:[id number] Oral 540 700 Output: Urine 1615 885 Other: Voiding Method Indwelling Catheter Indwelling Catheter Weight 78.5 kg GENERAL DESCRIPTION: Middle-aged male lying in bed, no distress. No tachypnea or accessory muscle of respiration use. HEENT: Shows Pallor , no scleral icterus. Oral mucous membrane is dry. No pharyngeal erythema or thrush NECK: Trachea central, no thyromegaly. LUNGS: Unlabored breathing. Clear to auscultation anteriorly. No wheeze or crackle. HEART: S1, S2, regular rate and rhythm. ABDOMEN: Soft, no tenderness , guarding or rigidity, no organomegaly EXTREMITIES: No edema of feet. SKIN: No rash, no masses palpable. NEUROLOGICAL: The patient is awake, alert, oriented x3, mood and affect normal. Results CBC & Chem 7: 04/12/24 10:18 04/12/24 10:18 Labs: Abnormal Lab Results - Last 24 Hours (Table) 04/08/24 04/08/24 04/08/24 Range/Units 18:10 18:10 18:10 WBC 13.0 H (3.8-10.6) k/uL RBC (4.30-5.90) m/uL Hgb (13.0-17.5) gm/dL Hct (39.0-53.0) % Neutrophils # 11.7 H (1.3-7.7) k/uL Lymphocytes # 0.2 L (1.0-4.8) k/uL Monocytes # 1.1 H (0-1.0) k/uL PT 13.1 H (10.0-12.5) sec INR 1.2 H (<1.2) APTT (22.0-30.0) sec Sodium 121 L (137-145) mmol/L Potassium (3.5-5.1) mmol/L Chloride 91 L (98-107) mmol/L Carbon Dioxide 18 L (22-30) mmol/L BUN 26 H (9-20) mg/dL Creatinine 1.56 H (0.66-1.25) mg/dL Plasma Lactic Acid Arjun (0.7-2.0) mmol/L Calcium (8.4-10.2) mg/dL AST 94 H (17-59) U/L ALT 50 H (4-49) U/L Alkaline Phosphatase 141 H (38-126) U/L Troponin I (0.000-0.034) ng/mL Total Protein 6.2 L (6.3-8.2) g/dL Albumin 3.3 L (3.5-5.0) g/dL Procalcitonin (0.02-0.09) ng/mL Ur Specific [place] (1.001-1.035) Urine Protein (Negative) Urine Ketones (Negative) Urine Blood (Negative) Ur Leukocyte Esterase (Negative) Urine RBC (0-5) /hpf Urine WBC (0-5) /hpf Urine WBC Clumps (None) /hpf Urine Bacteria (None) /hpf Hyaline Casts (0-2) /lpf Urine Mucus (None) /hpf 04/08/24 04/08/24 04/08/24 Range/Units 18:10 18:10 22:20 WBC (3.8-10.6) k/uL RBC (4.30-5.90) m/uL Hgb (13.0-17.5) gm/dL Hct (39.0-53.0) % Neutrophils # (1.3-7.7) k/uL Lymphocytes # (1.0-4.8) k/uL Monocytes # (0-1.0) k/uL PT (10.0-12.5) sec INR (<1.2) APTT (22.0-30.0) sec Sodium (137-145) mmol/L Potassium (3.5-5.1) mmol/L Chloride (98-107) mmol/L Carbon Dioxide (22-30) mmol/L BUN (9-20) mg/dL Creatinine (0.66-1.25) mg/dL Plasma Lactic Acid Arjun 4.7 H* (0.7-2.0) mmol/L Calcium (8.4-10.2) mg/dL AST (17-59) U/L ALT (4-49) U/L Alkaline Phosphatase (38-126) U/L Troponin I 0.740 H* (0.000-0.034) ng/mL Total Protein (6.3-8.2) g/dL Albumin (3.5-5.0) g/dL Procalcitonin (0.02-0.09) ng/mL Ur Specific [place] 1.042 H (1.001-1.035) Urine Protein 1+ H (Negative) Urine Ketones 1+ H (Negative) Urine Blood Moderate H (Negative) Ur Leukocyte Esterase Small H (Negative) Urine RBC 6 H (0-5) /hpf Urine WBC 15 H (0-5) /hpf Urine WBC Clumps Rare H (None) /hpf Urine Bacteria Rare H (None) /hpf Hyaline Casts 8 H (0-2) /lpf Urine Mucus Rare H (None) /hpf 04/09/24 04/09/24 04/09/24 Range/Units 01:41 01:41 01:41 WBC 11.9 H (3.8-10.6) k/uL RBC 4.00 L (4.30-5.90) m/uL Hgb 12.2 L (13.0-17.5) gm/dL Hct 36.2 L (39.0-53.0) % Neutrophils # 10.2 H (1.3-7.7) k/uL Lymphocytes # 0.4 L (1.0-4.8) k/uL Monocytes # (0-1.0) k/uL PT 13.9 H (10.0-12.5) sec INR 1.3 H (<1.2) APTT 57.3 H (22.0-30.0) sec Sodium (137-145) mmol/L Potassium (3.5-5.1) mmol/L Chloride (98-107) mmol/L Carbon Dioxide (22-30) mmol/L BUN (9-20) mg/dL Creatinine (0.66-1.25) mg/dL Plasma Lactic Acid Arjun (0.7-2.0) mmol/L Calcium (8.4-10.2) mg/dL AST (17-59) U/L ALT (4-49) U/L Alkaline Phosphatase (38-126) U/L Troponin I (0.000-0.034) ng/mL Total Protein (6.3-8.2) g/dL Albumin (3.5-5.0) g/dL Procalcitonin (0.02-0.09) ng/mL Ur Specific [place] (1.001-1.035) Urine Protein (Negative) Urine Ketones (Negative) Urine Blood (Negative) Ur Leukocyte Esterase (Negative) Urine RBC (0-5) /hpf Urine WBC (0-5) /hpf Urine WBC Clumps (None) /hpf Urine Bacteria (None) /hpf Hyaline Casts (0-2) /lpf Urine Mucus (None) /hpf 04/09/24 04/09/24 04/09/24 Range/Units 01:41 04:06 04:06 WBC (3.8-10.6) k/uL RBC (4.30-5.90) m/uL Hgb (13.0-17.5) gm/dL Hct (39.0-53.0) % Neutrophils # (1.3-7.7) k/uL Lymphocytes # (1.0-4.8) k/uL Monocytes # (0-1.0) k/uL PT (10.0-12.5) sec INR (<1.2) APTT (22.0-30.0) sec Sodium 127 L (137-145) mmol/L Potassium 3.4 L (3.5-5.1) mmol/L Chloride (98-107) mmol/L Carbon Dioxide 14 L (22-30) mmol/L BUN 26 H (9-20) mg/dL Creatinine (0.66-1.25) mg/dL Plasma Lactic Acid Arjun (0.7-2.0) mmol/L Calcium 7.5 L (8.4-10.2) mg/dL AST 106 H (17-59) U/L ALT 57 H (4-49) U/L Alkaline Phosphatase (38-126) U/L Troponin I 2.610 H* 2.790 H* (0.000-0.034) ng/mL Total Protein 5.2 L (6.3-8.2) g/dL Albumin 2.5 L (3.5-5.0) g/dL Procalcitonin (0.02-0.09) ng/mL Ur Specific [place] (1.001-1.035) Urine Protein (Negative) Urine Ketones (Negative) Urine Blood (Negative) Ur Leukocyte Esterase (Negative) Urine RBC (0-5) /hpf Urine WBC (0-5) /hpf Urine WBC Clumps (None) /hpf Urine Bacteria (None) /hpf Hyaline Casts (0-2) /lpf Urine Mucus (None) /hpf 04/09/24 Range/Units 04:06 WBC (3.8-10.6) k/uL RBC (4.30-5.90) m/uL Hgb (13.0-17.5) gm/dL Hct (39.0-53.0) % Neutrophils # (1.3-7.7) k/uL Lymphocytes # (1.0-4.8) k/uL Monocytes # (0-1.0) k/uL PT (10.0-12.5) sec INR (<1.2) APTT (22.0-30.0) sec Sodium (137-145) mmol/L Potassium (3.5-5.1) mmol/L Chloride (98-107) mmol/L Carbon Dioxide (22-30) mmol/L BUN (9-20) mg/dL Creatinine (0.66-1.25) mg/dL Plasma Lactic Acid Arjun (0.7-2.0) mmol/L Calcium (8.4-10.2) mg/dL AST (17-59) U/L ALT (4-49) U/L Alkaline Phosphatase (38-126) U/L Troponin I (0.000-0.034) ng/mL Total Protein (6.3-8.2) g/dL Albumin (3.5-5.0) g/dL Procalcitonin 27.40 H (0.02-0.09) ng/mL Ur Specific [place] (1.001-1.035) Urine Protein (Negative) Urine Ketones (Negative) Urine Blood (Negative) Ur Leukocyte Esterase (Negative) Urine RBC (0-5) /hpf Urine WBC (0-5) /hpf Urine WBC Clumps (None) /hpf Urine Bacteria (None) /hpf Hyaline Casts (0-2) /lpf Urine Mucus (None) /hpf Microbiology - Last 24 Hours (Table) 04/08/24 18:25 Blood Culture Gram Stain - Preliminary Blood Blood Culture - Preliminary Molecular ID 04/08/24 18:10 Blood Culture Gram Stain - Preliminary Blood Assessment and Plan (1) MSSA bacteremia Current Visit: Yes Status: Acute Code(s): R78.81 - BACTEREMIA; B95.61 - METHICILLIN SUSCEP STAPH INFCT CAUSING DIS CLASSD [id number] SNOMED Code(s): 012208949 (2) Septic shock Current Visit: Yes Status: Acute Code(s): A41.9 - SEPSIS, UNSPECIFIED ORGANISM; R65.21 - SEVERE SEPSIS WITH SEPTIC SHOCK SNOMED Code(s): 40025466 Plan: 1patient presented to hospital with sepsis in this patient who did have a fever hypotension elevated white count now with evidence of MSSA bacteremia patient did have a back pain mention previous back surgery with a CT abdominal pelvis that shows T9 compression fracture and with a question of osteomyelitis/discitis 2-patient with immunosuppression/risk of nephrotoxicity 3-blood cultures will be repeated document clearance of bacteremia check inflammatory markers 4-patient has been started on cefazolin vancomycin discontinued we will also discontinue Zosyn 5-check MRI of the thoracic spine with contrast once his kidney function improv ed for better definition of the spine abnormality to make sure no evidence of any discitis osteomyelitis or abscess We will follow on clinical condition and cultures to further adjust medication if needed Thank you for this consultation we will follow the patient along with you Dictation was produced using [employer] software. please excuse any grammatical, word or spelling errors. Time with Patient: Greater than 30
--- NOTE | 2024-04-10 10:43 | P.PN ---
Subjective Progress Note Date: 04/10/24 Principal diagnosis: Sepsis. This is a very pleasant 64-year-old male patient with a history of hypertension, obstructive sleep apnea, endocarditis, spinal surgery secondary to MRSA infection, gastric ulcer repair, chronic and ongoing tobacco dependence. He presented here to the emergency room yesterday with a 3-day history of weakness and diarrhea. He was also found to have EKG changes by EMS. Patient did not have any complaints of chest pain, shortness of breath, cough or congestion. He was found to be febrile at 102. White count 11.9. Hemoglobin 12.2. Platelets 171. Sodium 127. Potassium 3.6. Bicarb 14. BUN 26. Creatinine 1.09. AST 106. ALT 57. Troponins 2.6 and 2.7. Urine did reveal moderate blood and rare bacteria. Blood cultures are pending. He was also hypotensive and admitted to the intensive care unit. He is seen today in consultation. He is sitting up in bed. Awake and alert. Feeling a bit better today compared to yesterday. He has been initiated on vancomycin and Zosyn. He is on a heparin drip. Echocardiogram is pending. Requiring norepinephrine currently at 1.6 mcg/min. Received 3 L of fluid resuscitation. Chest x-ray reveals low lung volumes with generalized hazy appearance represent atelectasis versus pulmonary edema. CT scan of the abdomen revealed no evidence for acute abdominal process. He is currently maintaining good O2 saturations in the 90s on 2 L/min per nasal cannula. Progress note dated April 10, 2024. 64-year-old male seen in consultation yesterday. The patient was evaluated in the emergency department, for 3 days history of weakness, and diarrhea. He also was found to be febrile. His white count was almost 12,000. Currently, the patient is doing much better. He is currently on room air. He is getting saline at 100 cc an hour. His antibiotic is Ancef, for gram-positive cocci in clusters, and the blood cultures. The patient is a candidate to be transferred out to the cardiac floor. Current labs include a C-reactive protein of 20.2. His highest troponin was 2.790. The patient was also thought to have a non-ST segment elevation myocardial infarction. Objective - Vital Signs Vital signs: Vital Signs Temp 98.2 F 04/10/24 08:00 Pulse 84 04/10/24 08:00 Resp 20 04/10/24 08:00 BP 108/66 04/10/24 08:00 Pulse Ox 95 04/10/24 08:00 FiO2 Intake & Output 04/09/24 04/10/24 04/10/24 18:59 06:59 18:59 Intake Total 2518.313 1271.267 Output Total 1460 750 Balance 1058.313 521.267 Weight 80 kg Intake: IV 1800 1000 Piperacillin-Tazobactam 3 200 .375 gm In Sodium Chloride 0.9% 100 ml @ 25 mls/hr IVPB Q8H [facility] Rx#: [id number] Sodium Chloride 0.9% 1, 1000 1000 000 ml @ 100 mls/hr IV . Q10H [facility] Rx#:[id number] Vancomycin 1,500 mg In 500 Sodium Chloride 0.9% 500 ml @ 166.667 mls/hr IVPB Q16H [facility] Rx#:[id number] ceFAZolin 2 gm In Sodium 100 Chloride 0.9% 50 ml @ 100 mls/hr IVPB Q8HR [facility] Rx# :[id number] Intake, IV Titration 18.313 271.267 Amount Heparin Sod,Pork in 0.45% 271.267 NaCl 25,000 unit In 0.45 % NaCl 1 250ml.bag @ 12 UNITS/KG/HR 9.253 mls/hr IV .Q24H [facility] Rx#: [id number] Norepinephrine 4 mg In 18.313 Sodium Chloride 0.9% 250 ml @ 0.03 MCG/KG/MIN 8. 814 mls/hr IV .Q24H [facility] Rx#:[id number] Oral 700 Output: Urine 1460 750 Other: Voiding Method Indwelling Catheter Indwelling Catheter - Exam No acute distress, oriented 3. Currently on room air. HEENT examination is grossly unremarkable. Mucous membranes are moist. No oral lesions. Neck supple. Full range of motion. No adenopathy thyromegaly or neck vein distention. Cardiovascular examination reveals regular rhythm rate. S1-S2 normal. No S3 or S4. No discernible murmur noted. Heart sounds distant. Heart rate 84 bpm. Lungs reveal mostly clear breath sounds. Faint basilar crackles. No wheezes. No rhonchi. Breath sounds are equal bilaterally. Room air saturation is 95%. Abdomen soft with bowel sounds. No masses or tenderness. Extremities are intact. No cyanosis clubbing or edema. Skin is without rash or lesion. Neurologic examination is brief but nonfocal. - Labs CBC & Chem 7: 04/09/24 01:41 04/09/24 15:55 Labs: Abnormal Lab Results - Last 24 Hours (Table) 04/09/24 04/10/24 04/10/24 Range/Units 04:06 00:20 08:42 APTT 32.4 H (22.0-30.0) sec C-Reactive Protein 20.2 H (<1.0) mg/dL Procalcitonin 27.40 H (0.02-0.09) ng/mL 04/10/24 Range/Units 08:42 APTT 49.4 H (22.0-30.0) sec C-Reactive Protein (<1.0) mg/dL Procalcitonin (0.02-0.09) ng/mL Microbiology - Last 24 Hours (Table) 04/08/24 22:20 Urine Culture - Preliminary Urine,Voided Presumptive Staph aureus 04/08/24 18:25 Blood Culture Gram Stain - Preliminary Blood Blood Culture - Preliminary Molecular ID 04/08/24 18:10 Blood Culture Gram Stain - Preliminary Blood Assessment and Plan Assessment: Generalized weakness secondary to 3 days of diarrhea and suspected sepsis with septic shock. Acute kidney injury secondary to dehydration. Hyponatremia secondary to above. Hypotension secondary to above, requiring pressor support. Non-ST segment elevation myocardial infarction. Acute hypoxemic respiratory failure secondary to suspected systolic versus diastolic congestive heart failure. Chronic and ongoing tobacco dependence. History of hypertension. History of obstructive sleep apnea. History of endocarditis in 2014. History of spinal surgery secondary to a MRSA infection. History of gastric ulcer with repair. Plan: Plan dated April 10, 2024. The blood cultures were positive for gram-positive cocci in clusters. The patient is currently on Ancef. The patient is not receiving any supplemental oxygen. The patient is getting saline at 100 cc an hour. Labs, x-rays, medications are reviewed. We will continue to follow the patient, make recommendations along the way. The patient's overall prognosis remains guarded. The patient does have a prior history of endocarditis, and a prior history of MRSA infection as well. Prognosis is certainly guarded. Time with Patient: Less than 30
[2024-04-10] MEDS: TAMSULOSIN 0.4 MG CAP.ER.24H PO SCH (16:07)
--- NOTE | 2024-04-10 21:51 | P.PN ---
Subjective Progress Note Date: 04/10/24 Principal diagnosis: Reason for follow-up is sepsis and MSSA bacteremia Patient is a 64-year-old male past medical history of hypertension osteoarthritis sleep apnea did have a history of chronic back pain presented to hospital for weakness and diarrhea patient was noticed to be septic and subsequently did have a positive blood culture with MSSA prompting this consul tation. On today's evaluation that is 04/10/2024,the patient did have resolution of his fever and the patient is afebrile today, patient is breathing comfortably on room air, the patient denies chest pain shortness of breath and no significant cough, patient denies abdominal pain, no nausea vomiting and denies any worsening back pain. Patient is off the pressor support per the nursing staff. Patient white count is down to 11.9 creatinine 1.09 CRP of 20.2 blood culture with MSSA urine is also MSSA Objective - Vital Signs Vital signs: Vital Signs Temp 98.3 F 04/10/24 16:00 Pulse 80 04/10/24 16:00 Resp 18 04/10/24 16:00 BP 141/73 04/10/24 16:00 Pulse Ox 93 L 04/10/24 16:00 FiO2 Intake & Output 04/09/24 04/10/24 04/10/24 18:59 06:59 18:59 Intake Total 2518.313 1271.267 171.192 Output Total 1460 750 400 Balance 1058.313 521.267 -228.808 Weight 80 kg Intake: IV 1800 1000 Piperacillin-Tazobactam 3 200 .375 gm In Sodium Chloride 0.9% 100 ml @ 25 mls/hr IVPB Q8H [facility] Rx#: [id number] Sodium Chloride 0.9% 1, 1000 1000 000 ml @ 100 mls/hr IV . Q10H [facility] Rx#:[id number] Vancomycin 1,500 mg In 500 Sodium Chloride 0.9% 500 ml @ 166.667 mls/hr IVPB Q16H [facility] Rx#:[id number] ceFAZolin 2 gm In Sodium 100 Chloride 0.9% 50 ml @ 100 mls/hr IVPB Q8HR [facility] Rx# :[id number] Intake, IV Titration 18.313 271.267 171.192 Amount Heparin Sod,Pork in 0.45% 271.267 171.192 NaCl 25,000 unit In 0.45 % NaCl 1 250ml.bag @ 12 UNITS/KG/HR 9.253 mls/hr IV .Q24H [facility] Rx#: [id number] Norepinephrine 4 mg In 18.313 Sodium Chloride 0.9% 250 ml @ 0.03 MCG/KG/MIN 8. 814 mls/hr IV .Q24H [facility] Rx#:[id number] Oral 700 Output: Urine 1460 750 400 Other: Voiding Method Indwelling Catheter Indwelling Catheter - Exam GENERAL DESCRIPTION: Middle-age male up in the chair in no distress RESPIRATORY SYSTEM: Unlabored breathing , decreased breath sounds at bases HEART: S1 S2 regular rate and rhythm , ABDOMEN: Soft , no tenderness EXTREMITIES: No edema feet - Labs CBC & Chem 7: 04/09/24 01:41 04/09/24 15:55 Labs: Abnormal Lab Results - Last 24 Hours (Table) 04/10/24 04/10/24 04/10/24 Range/Units 00:20 08:42 08:42 APTT 32.4 H 49.4 H (22.0-30.0) sec C-Reactive Protein 20.2 H (<1.0) mg/dL Microbiology - Last 24 Hours (Table) 04/08/24 18:10 Blood Culture Gram Stain - Preliminary Blood Blood Culture - Preliminary Presumptive Staph aureus 04/08/24 18:25 Blood Culture Gram Stain - Preliminary Blood Blood Culture - Preliminary Presumptive Staph aureus Molecular ID 04/08/24 22:20 Urine Culture - Preliminary Urine,Voided Presumptive Staph aureus Assessment and Plan (1) MSSA bacteremia Current Visit: Yes Status: Acute Code(s): R78.81 - BACTEREMIA; B95.61 - METHICILLIN SUSCEP STAPH INFCT CAUSING DIS CLASSD ELSWHR SNOMED Code(s): 957923162 Plan: 1patient presented to hospital with sepsis in this patient who did have a fever hypotension elevated white count now with evidence of MSSA bacteremia patient did have a back pain mention previous back surgery with a CT abdominal pelvis that shows T9 compression fracture and with a question of osteomyelitis/discitis 2--blood cultures has been repeated document clearance of bacteremia sed rate is currently pending CRP was elevated 3-patient to continue with the cefazolin 2 g great hour 4-with improvement in kidney function we will check MRI of the thoracic spine to make sure no evidence of any discitis osteomyelitis or abscess Dictation was produced using [employer] software. please excuse any grammatical, word or spelling errors. Time with Patient: Less than 30
--- NOTE | 2024-04-11 14:23 | P.PN ---
Subjective Progress Note Date: 04/11/24 HISTORY OF PRESENTING ILLNESS 64-year-old male with past medical history of hypertension, obstructive sleep apnea, prior endocarditis in 2016, spinal surgery secondary to MRSA infection, chronic smoker, with residual severe aortic regurgitation based off CHRIS from 2019. He is known to Dr. Quezada. He has never had any cardiac interventions done in the past. He has not had any prior cardiac catheterization. This time he presented to the hospital because of complaints of substernal chest pressure, shortness of breath increased cough. He was also reporting fever of 102. He also reports generalized weakness and fatigue along with poor oral intake and diarrhea. On admission labs WBC 11.9, hemoglobin 12.2, platelet 171, sodium 127, BUN 26, creatinine 1.09. Troponin 2.6, 2.7., Elevated lactate On admission he was hypertensive for which she was placed on low-dose norepinephrine drip. He also got 3 L fluid resuscitation for sepsis. Echo showed an EF of 30 to 35%, apical hypokinesia, mild aortic stenosis and moderate to severe aortic regurgitation. Progress note 04/10/2024 Patient is doing better as compared to yesterday. He is off pressors, systolic blood pressure 110 mmHg, heart rate 90 beats minute, sinus rhythm. No arrhythmias on telemetry monitoring over last 6 hours. IV fluids 100 cc/h, good urine output, able to tolerate oral intake, on liquid diet at this time. No abdominal pain reported. No reported chest pain chest pressure 04/11 Patient denies having any chest pain and no difficulty breathing. He is seen today on the cardiac stepdown unit. Blood pressure 148/76, heart rate 86, pulse ox 98% on room air. C-reactive protein 20.2. Echocardiogram performed in the office on 12/07/2023 revealed EF of 55%, moderate left ventricular hypertrophy. Severe aortic regurgitation and moderate aortic stenosis. Mild mitral regurgitation. Mild tricuspid regurgitation. Mild pulm onic regurgitation. PASP 32 mmHg. Patient follows in the office with Dr. Heraclio Hermosillo. Patient has been maintained on heparin drip. Patient is scheduled for MRI of the thoracic spine to determine source of bacteremia. PHYSICAL EXAMINATION Vital signs reviewed. Head: Normocephalic. Eyes: Sclerae nonicteric. Neck: Brisk carotid upstroke, no jugular venous distention. Lungs: Clear to auscultation. Heart: Regular rate and rhythm, S1-S2, no S3, 2/6 systolic and diastolic murmur. Abdomen: Soft nontender, positive bowel sounds. Extremities: No edema, intact distal pulses. Neuro: Alert, oritented, no focal deficits. Detailed neuro exam was not performed. ASSESSMENT Elevated troponin, likely type II NSTEMI versus stress cardiomyopathy, cannot rule out coronary artery disease Septic shock, Staph aureus bacteremia of unknown etiology Prior history of endocarditis involving aortic valve in 2016 Prior moderate ascending aortic regurgitation Generalized weakness and diarrhea Essential hypertension Hyponatremia BIN, secondary dehydration Tobacco smoker PLAN Aspirin 81 mg, Discontinue heparin drip. Continue patient on aspirin 81 mg daily, add a atorvastatin 40 mg daily and add lisinopril 2.5 mg daily Continue Toprol XL 25 mg daily metoprolol XL 25 mg daily Once patient is stable from sepsis standpoint, would recommend ischemic evaluation for cardiomyopathy and possible CHRIS to evaluate for aortic regurgitation to evaluate the need for possible surgical intervention evaluation Nurse practitioner note has been reviewed, I agree with documented findings and plan of care. Patient was seen and examined. Objective - Vital Signs Vital signs: Vital Signs Temp 98 F 04/11/24 08:25 Pulse 88 04/11/24 08:25 Resp 18 04/11/24 08:25 BP 140/80 04/11/24 08:25 Pulse Ox 100 04/11/24 08:25 FiO2 Intake & Output 04/10/24 04/11/24 04/11/24 18:59 06:59 18:59 Intake Total 171.192 0 540 Output Total 400 240 Balance -228.808 -240 540 Intake: Intake, IV Titration 171.192 Amount Heparin Sod,Pork in 0.45% 171.192 NaCl 25,000 unit In 0.45 % NaCl 1 250ml.bag @ 12 UNITS/KG/HR 9.253 mls/hr IV .Q24H [facility] Rx#: [id number] Oral 0 540 Output: Urine 400 Post Void Residual 240 Other: Voiding Method Toilet Toilet # Voids 1 - Labs CBC & Chem 7: 04/09/24 01:41 04/09/24 15:55 Labs: Microbiology - Last 24 Hours (Table) 04/08/24 18:10 Blood Culture Gram Stain - Preliminary Blood Blood Culture - Preliminary Presumptive Staph aureus 04/08/24 18:25 Blood Culture Gram Stain - Preliminary Blood Blood Culture - Preliminary Presumptive Staph aureus Molecular ID 04/08/24 22:20 Urine Culture - Preliminary Urine,Voided Presumptive Staph aureus
--- NOTE | 2024-04-11 15:47 | P.PN ---
Subjective Progress Note Date: 04/11/24 This is a very pleasant 64-year-old male patient with a history of hypertension, obstructive sleep apnea, endocarditis, spinal surgery secondary to MRSA infection, gastric ulcer repair, chronic and ongoing tobacco dependence. He presented here to the emergency room yesterday with a 3-day history of weakness and diarrhea. He was also found to have EKG changes by EMS. Patient did not have any complaints of chest pain, shortness of breath, cough or congestion. He was found to be febrile at 102. White count 11.9. Hemoglobin 12.2. Platelets 171. Sodium 127. Potassium 3.6. Bicarb 14. BUN 26. Creatinine 1.09. AST 106. ALT 57. Troponins 2.6 and 2.7. Urine did reveal moderate blood and rare bacteria. Blood cultures are pending. He was also hypotensive and admitted to the intensive care unit. He is seen today in consultation. He is sitting up in bed. Awake and alert. Feeling a bit better today compared to yesterday. He has been initiated on vancomycin and Zosyn. He is on a heparin drip. Echocardiogram is pending. Requiring norepinephrine currently at 1.6 mcg/min. Received 3 L of fluid resuscitation. Chest x-ray reveals low lung volumes with generalized hazy appearance represent atelectasis versus pulmonary edema. CT scan of the abdomen revealed no evidence for acute abdominal process. He is currently maintaining good O2 saturations in the 90s on 2 L/min per nasal cannula. Progress note dated April 10, 2024.[id number] male seen in consultation yesterday. The patient was evaluated in the emergency department, for 3 days history of weakness, and diarrhea. He also was found to be febrile. His white count was almost 12,000. Currently, the patient is doing much better. He is currently on room air. He is getting saline at 100 cc an hour. His antibiotic is Ancef, for gram-positive cocci in clusters, and the blood cultures. The patient is a candidate to be transferred out to the cardiac floor. Current labs include a C-reactive protein of 20.2. His highest troponin was 2.790. The patient was also thought to have a non-ST segment elevation myocardial infarction. On today's evaluation of 04/11/2024, the patient is being seen for a follow-up. This patient has recurrent septic events and the patient is currently infected with Staph aureus, MSSA and the patient is currently on IV cefazolin. Doing well. Hemodynamically stable. No altered mentation. His parents thoracic echocardiogram was done on 04/09/2024 and the patient was found to have no evidence of any endocarditis. He has a left ventricular ejection fraction of around 30 to 35%. The patient also has apex is hypokinetic and mildly increased septal wall thickening. The patient has mild aortic stenosis. CAT scan of the abdomen and pelvis was also done that showed no evidence of any acute intra- abdominal process. The patient has a increased kyphosis of the spine along with compression fracture of the T9 spine. The patient is awaiting an MRI of the spine and a CHRIS. Otherwise, he has no specific complaints. No active diarrhea at this point in time. He remains on antibiotics. He does have some eczematous rash over the right upper extremity for which I recommended a steroid cream. Unlikely to be a drug rash at this point in time. Objective - Vital Signs Vital signs: Vital Signs Temp 98 F 04/11/24 08:25 Pulse 88 04/11/24 08:25 Resp 18 04/11/24 08:25 BP 140/80 04/11/24 08:25 Pulse Ox 100 04/11/24 08:25 FiO2 Intake & Output 04/10/24 04/11/24 04/11/24 18:59 06:59 18:59 Intake Total 171.192 0 540 Output Total 400 240 Balance -228.808 -240 540 Intake: Intake, IV Titration 171.192 Amount Heparin Sod,Pork in 0.45% 171.192 NaCl 25,000 unit In 0.45 % NaCl 1 250ml.bag @ 12 UNITS/KG/HR 9.253 mls/hr IV .Q24H [facility] Rx#: [id number] Oral 0 540 Output: Urine 400 Post Void Residual 240 Other: Voiding Method Toilet Toilet # Voids 1 - Exam No acute distress, oriented 3. Currently on room air. HEENT examination is grossly unremarkable. Mucous membranes are moist. No oral lesions. Neck supple. Full range of motion. No adenopathy thyromegaly or neck vein distention. Cardiovascular examination reveals regular rhythm rate. S1-S2 normal. No S3 or S4. Heart sounds distant. A cardiac murmur was appreciated in the left lateral sternal border. This is a grade 2/6. Lungs reveal mostly clear breath sounds. Faint basilar crackles. No wheezes. No rhonchi. Breath sounds are equal bilaterally. Abdomen soft with bowel sounds. No masses or tenderness. Extremities are intact. No cyanosis clubbing or edema. Skin is without rash or lesion. Eczematous rash over the left upper extremity. Neurologic examination is brief but nonfocal. - Labs CBC & Chem 7: 04/09/24 01:41 04/09/24 15:55 Labs: Microbiology - Last 24 Hours (Table) 04/08/24 18:10 Blood Culture Gram Stain - Preliminary Blood Blood Culture - Preliminary Presumptive Staph aureus 04/08/24 18:25 Blood Culture Gram Stain - Preliminary Blood Blood Culture - Preliminary Presumptive Staph aureus Molecular ID 04/08/24 22:20 Urine Culture - Preliminary Urine,Voided Presumptive Staph aureus Assessment and Plan Plan: Staphylococcal sepsis and the patient has MSSA bacteremia currently on IV cefazolin. No clinical indication of any spinal infection or valvular infection at this point in time. This is something that needs to be further worked up. The patient is clinically and hemodynamically stable and the patient is afebrile. His urine culture was also positive for MSSA. Rule out urinary source of infection. Distant sites of deep-seated infection cannot be co mpletely ruled out. Generalized weakness secondary to 3 days of diarrhea and suspected sepsis with septic shock, recovered and the patient is currently hemodynamically stable Acute kidney injury secondary to dehydration, recovered Hyponatremia secondary to above, recovered Hypotension secondary to above, requiring pressor support, recovered and the patient is hemodynamically stable Non-ST segment elevation myocardial infarction, troponin peaked at 2.7 and the patient is going to need a cardiac catheterization at the later stage and along with that if possible CHRIS, rule out cardiac abscess formation systolic versus diastolic congestive heart failure, with impaired LV function with an ejection fraction of 30 to 35% along with segmental wall motion abnormalities Chronic and ongoing tobacco dependence. History of hypertension. History of obstructive sleep apnea. History of endocarditis in 2014. History of spinal surgery secondary to a MRSA infection. History of gastric ulcer with repair. T9 compression fracture along with kyphosis of the thoracic spine Plan: Clinically stable Hemodynamically stable Oxygenation is improved and the patient is currently on room air oxygen Continue IV cefazolin for now Obtain a follow-up blood cultures The patient is going to need a cardiac catheterization and CHRIS at a later stage as the patient sustained an acute elevation of the troponin in addition to Staphylococcus septicemia and obviously a endocarditis needs to be ruled out. MRI of the thoracic spine rule out discitis/osteomyelitis/abscess formation Will continue to follow
--- NOTE | 2024-04-11 17:03 | MR ---
EXAMINATION TYPE: MR thoracic spine wo/w con DATE OF EXAM: 04/11/2024 COMPARISON: CT abdomen pelvis 04/08/2024 HISTORY: Abnormal CT bacteremia question of osteomyelitis. CONTRAST: Performed utilizing 8 mL intravenous Gadavist gadolinium contrast. TECHNIQUE: Multiplanar, multiecho imaging on a 3.0 Natalia magnet is performed through the thoracic spi ne. Spinal cord maintains normal signal through its visualized course. Congenital deformity of T8. There is a severe kyphosis within the mid thoracic spine at T8. There is borderline spinal canal stenosis is 0.94 cm. Mild cord contact may be present. Mild cord flattening m ay be present. Vertebral body heights are otherwise preserved. Disc heights are preserved. Disc hydration levels are preserved. There is a 0.8 x 1.1 cm collection anterior to the T9-10 disc level could be a small abscess. There i s increased signal within the T9 vertebral body. No collapse is evident. Early osteomyelitis could be considered. Soft tissues are somewhat prominent at this level on both CT and MRI. Infection at this level could be considered. There is some increased signal within the anterior T9 vertebral without o bvious cortical disruption. IMPRESSION: 1. Collection anterior to the T9-10 may be a small prevertebral abscess. Increased signal within T9 c ould suggest some osteomyelitis. No collapse is evident. 2. 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
[2024-04-11] MEDS: ATORVASTATIN 40 MG TAB PO SCH (20:01)
[2024-04-11] MEDS: CLOBETASOL PROP 0.05% CR 15GM TOPICAL SCH (20:07)
--- NOTE | 2024-04-11 22:33 | P.PN ---
Subjective Progress Note Date: 04/11/24 Principal diagnosis: Reason for follow-up is sepsis and MSSA bacteremia Patient is a 64-year-old male past medical history of hypertension osteoarthritis sleep apnea did have a history of chronic back pain presented to hospital for weakness and diarrhea patient was noticed to be septic and subsequently did have a positive blood culture with MSSA prompting this consul tation. On today's evaluation that is 04/11/2024,the patient remains to be afebrile, patient is on room air not requiring supplemental oxygen and denies any shortness of breath no chest pain or cough.Patient denies having any nausea or vomiting, no abdominal pain and no diarrhea and denies any worsening pain to the mid back area. Patient did have a sed rate of 46 CRP is 20.2 blood culture repeat pending Objective - Vital Signs Vital signs: Vital Signs Temp 98.1 F 04/11/24 11:56 Pulse 86 04/11/24 11:56 Resp 16 04/11/24 11:56 BP 148/76 04/11/24 11:56 Pulse Ox 98 04/11/24 11:56 FiO2 Intake & Output 04/10/24 04/11/24 04/11/24 18:59 06:59 18:59 Intake Total 171.192 0 540 Output Total 400 240 Balance -228.808 -240 540 Intake: Intake, IV Titration 171.192 Amount Heparin Sod,Pork in 0.45% 171.192 NaCl 25,000 unit In 0.45 % NaCl 1 250ml.bag @ 12 UNITS/KG/HR 9.253 mls/hr IV .Q24H [facility] Rx#: [id number] Oral 0 540 Output: Urine 400 Post Void Residual 240 Other: Voiding Method Toilet Toilet # Voids 1 - Exam GENERAL DESCRIPTION: Middle-age male up in the chair in no distress RESPIRATORY SYSTEM: Unlabored breathing , decreased breath sounds at bases HEART: S1 S2 regular rate and rhythm , ABDOMEN: Soft , no tenderness EXTREMITIES: No edema feet - Labs CBC & Chem 7: 04/09/24 01:41 04/09/24 15:55 Labs: Abnormal Lab Results - Last 24 Hours (Table) 04/11/24 Range/Units 11:50 APTT 41.4 H (22.0-30.0) sec Microbiology - Last 24 Hours (Table) 04/08/24 18:10 Blood Culture Gram Stain - Preliminary Blood Blood Culture - Preliminary Presumptive Staph aureus 04/08/24 18:25 Blood Culture Gram Stain - Preliminary Blood Blood Culture - Preliminary Presumptive Staph aureus Molecular ID 04/08/24 22:20 Urine Culture - Preliminary Urine,Voided Presumptive Staph aureus Assessment and Plan (1) MSSA bacteremia Current Visit: Yes Status: Acute Code(s): R78.81 - BACTEREMIA; B95.61 - METHICILLIN SUSCEP STAPH INFCT CAUSING DIS CLASSD ELSWHR SNOMED Code(s): 851859665 (2) Vertebral abscess Current Visit: Yes Status: Acute Code(s): M46.20 - OSTEOMYELITIS OF VERTEBRA, SITE UNSPECIFIED SNOMED Code(s): 729267172 Plan: 1patient presented to hospital with sepsis in this patient who did have a fever hypotension elevated white count now with evidence of MSSA bacteremia patient did have a back pain mention previous back surgery with a CT abdominal pelvis that shows T9 compression fracture and with a question of osteomyelitis/discitis 2--blood cultures has been repeated document clearance of bacteremia sed rate is 46 3-patient to continue with the cefazolin 2 g every 8 hour currently waiting for MRI of the thoracic spine Dictation was produced using [employer] dictation software. please excuse any grammatical, word or spelling errors. Time with Patient: Less than 30
--- NOTE | 2024-04-12 09:56 | P.PN ---
Subjective Progress Note Date: 04/10/24 Patient is a 64-year-old male with a past medical history of hypertension, obstructive sleep apnea, infective endocarditis in 2016, history of gastric ulcer and prior history of back surgery and currently everyday smoker. Patient presents to ER with complaints of generalized weakness fatigue and diarrhea for 3 to 4 days. Patient states that he has been having diarrhea and progressive weakness. Patient is unable to stand up while going to the bathroom and had diarrhea all over. EMS was called by his . Patient was febrile with Tmax of 102.3 on admission and heart rate 101 and pulse ox 94% on room air. Patient became hypotensive with blood pressure went down to 86 over 53 mmHg. Patient otherwise denies any complaints of abdominal pain. Denies any dysuria or hematuria. Denies any chest pain or shortness of breath. No cough or sputum production. No nausea or vomiting. Chest x-ray showed low lung volumes with generalized hazy appearance which could represent atelectasis versus pulmonary edema correlate with serum BNP. CT of the abdomen pelvis showed no evidence for acute abdominal process. Prostatomegaly, correlate with serum PSA, increased kyphosis of the spine due to T9 compression deformity with complete height loss anteriorly. EKG showed possible left atrial enlargement left anterior fascicular block. 2D echocardiogram showed left ventricular ejection fraction estimated at 30 to 35%, apical hypokinesia and mildly increased septal wall thickness. Normal right ventricular size and function. Mild aortic stenosis with peak gradient of 23 mmHg and a mean gradient of 40 mmHg. Moderate to severe AR Laboratory pressure WBC 13.0 hemoglobin 14.2 and platelets 186 Sodium 121 potassium 4.6 chloride 91 bicarb is 18 BUN 26 and creatinine 1.56 and lactic acid 4.7 AST 94 ALT 50 alk phos 141 and troponin 0.740 proBNP 2830 Urinalysis showed increased versus gravity with small leukocyte esterase and 6 RBCs and 15 WBCs. Influenza A B RSV and COVID-19 PCR not detected. 04/10/2024 Patient is in the MICU. Currently sitting in the chair. Awake alert and oriented x 3. No complaints of chest pain or shortness of breath. Denies any abdominal pain. No nausea vomiting. Patient is getting IV antibiotics of cefazolin. Blood cultures grew positive cocci Denies any complaints of diarrhea today. Symptomatically improving. Patient is on heparin drip due to elevated troponin level. Cardiology and pulmonary is on board. Laboratory data reviewed. Objective - Vital Signs Vital signs: Vital Signs Temp 98.2 F 04/10/24 08:00 Pulse 84 04/10/24 08:00 Resp 20 04/10/24 08:00 BP 108/66 04/10/24 08:00 Pulse Ox 95 04/10/24 08:00 FiO2 Intake & Output 04/09/24 04/10/24 04/10/24 18:59 06:59 18:59 Intake Total 2518.313 1271.267 Output Total 1460 750 Balance 1058.313 521.267 Weight 80 kg Intake: IV 1800 1000 Piperacillin-Tazobactam 3 200 .375 gm In Sodium Chloride 0.9% 100 ml @ 25 mls/hr IVPB Q8H [facility] Rx#: [id number] Sodium Chloride 0.9% 1, 1000 1000 000 ml @ 100 mls/hr IV . Q10H [facility] Rx#:[id number] Vancomycin 1,500 mg In 500 Sodium Chloride 0.9% 500 ml @ 166.667 mls/hr IVPB Q16H [facility] Rx#:[id number] ceFAZolin 2 gm In Sodium 100 Chloride 0.9% 50 ml @ 100 mls/hr IVPB Q8HR [facility] Rx# :[id number] Intake, IV Titration 18.313 271.267 Amount Heparin Sod,Pork in 0.45% 271.267 NaCl 25,000 unit In 0.45 % NaCl 1 250ml.bag @ 12 UNITS/KG/HR 9.253 mls/hr IV .Q24H [facility] Rx#: [id number] Norepinephrine 4 mg In 18.313 Sodium Chloride 0.9% 250 ml @ 0.03 MCG/KG/MIN 8. 814 mls/hr IV .Q24H [facility] Rx#:[id number] Oral 700 Output: Urine 1460 750 Other: Voiding Method Indwelling Catheter Indwelling Catheter - Exam PHYSICAL EXAMINATION: Patient is lying in the bed comfortably, no acute distress, awake alert and oriented.. HEENT: Normocephalic. Neck is supple. Pupils reactive. Nostrils clear. Oral cavity is moist. Neck reveals no JVD, carotid bruits, or thyromegaly. CHEST EXAMINATION: Trachea is central. Symmetrical expansion. Lung agosto clear to auscultation and percussion. CARDIAC: Normal S1, S2 with no gallops. No murmurs ABDOMEN: Soft. Bowel sounds normal. No organomegaly. No abdominal bruits. Extremities: reveal no edema. No clubbing or cyanosis Neurologically awake, alert, oriented x3 with well-coordinated movements. No focal deficits noted Skin: No rash or skin lesions. Psychiatric: Coperative. Nonsuicidal Musculoskeletal: No joint swelling or deformity. Normal range of motion. - Labs CBC & Chem 7: 04/09/24 01:41 04/09/24 15:55 Labs: Abnormal Lab Results - Last 24 Hours (Table) 04/09/24 04/10/24 04/10/24 Range/Units 04:06 00:20 08:42 APTT 32.4 H (22.0-30.0) sec C-Reactive Protein 20.2 H (<1.0) mg/dL Procalcitonin 27.40 H (0.02-0.09) ng/mL 04/10/24 Range/Units 08:42 APTT 49.4 H (22.0-30.0) sec C-Reactive Protein (<1.0) mg/dL Procalcitonin (0.02-0.09) ng/mL Microbiology - Last 24 Hours (Table) 04/08/24 22:20 Urine Culture - Preliminary Urine,Voided Presumptive Staph aureus 04/08/24 18:25 Blood Culture Gram Stain - Preliminary Blood Blood Culture - Preliminary Molecular ID 04/08/24 18:10 Blood Culture Gram Stain - Preliminary Blood Assessment and Plan Assessment: Acute diarrhea with generalized weakness and fatigue Sepsis/septic shock requiring pressor support. Currently off pressors.. Gram-positive cocci bacteremia Gram-positive cocci urinary tract infection Elevated troponin level possible type II [place] Acute CHF with ejection fraction 30 to 35%, apical hypokinesis EF, mild and moderate to severe AR Acute kidney injury with possible ATN secondary to hemodynamic instability. 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 Prostatomegaly as noted on CT of the abdomen pelvis. Elevated liver enzymes Currently everyday smoker DVT prophylaxis and GI prophylaxis. Plan: Patient is currently in the MICU. Patient was on pressor support with Levophed. Currently off pressor support. Continue with IV hydration with normal saline and continue to monitor volume status. Continue with antibiotics with cefazolin. Patient is on heparin drip due to elevated troponin level and cardiomyopathy. Continue with aspirin Follow-up blood cultures and urine cultures. Critical care team, cardiology and ID is on board. Prognosis is guarded at this time.
--- NOTE | 2024-04-12 10:19 | P.PN ---
Subjective Progress Note Date: 04/11/24 Patient is a 64-year-old male with a past medical history of hypertension, obstructive sleep apnea, infective endocarditis in 2016, history of gastric ulcer and prior history of back surgery and currently everyday smoker. Patient presents to ER with complaints of generalized weakness fatigue and diarrhea for 3 to 4 days. Patient states that he has been having diarrhea and progressive weakness. Patient is unable to stand up while going to the bathroom and had diarrhea all over. EMS was called by his . Patient was febrile with Tmax of 102.3 on admission and heart rate 101 and pulse ox 94% on room air. Patient became hypotensive with blood pressure went down to 86 over 53 mmHg. Patient otherwise denies any complaints of abdominal pain. Denies any dysuria or hematuria. Denies any chest pain or shortness of breath. No cough or sputum production. No nausea or vomiting. Chest x-ray showed low lung volumes with generalized hazy appearance which could represent atelectasis versus pulmonary edema correlate with serum BNP. CT of the abdomen pelvis showed no evidence for acute abdominal process. Prostatomegaly, correlate with serum PSA, increased kyphosis of the spine due to T9 compression deformity with complete height loss anteriorly. EKG showed possible left atrial enlargement left anterior fascicular block. 2D echocardiogram showed left ventricular ejection fraction estimated at 30 to 35%, apical hypokinesia and mildly increased septal wall thickness. Normal right ventricular size and function. Mild aortic stenosis with peak gradient of 23 mmHg and a mean gradient of 40 mmHg. Moderate to severe AR Laboratory pressure WBC 13.0 hemoglobin 14.2 and platelets 186 Sodium 121 potassium 4.6 chloride 91 bicarb is 18 BUN 26 and creatinine 1.56 and lactic acid 4.7 AST 94 ALT 50 alk phos 141 and troponin 0.740 proBNP 2830 Urinalysis showed increased versus gravity with small leukocyte esterase and 6 RBCs and 15 WBCs. Influenza A B RSV and COVID-19 PCR not detected. 04/10/2024 Patient is in the MICU. Currently sitting in the chair. Awake alert and oriented x 3. No complaints of chest pain or shortness of breath. Denies any abdominal pain. No nausea vomiting. Patient is getting IV antibiotics of cefazolin. Blood cultures grew positive cocci Denies any complaints of diarrhea today. Symptomatically improving. Patient is on heparin drip due to elevated troponin level. Cardiology and pulmonary is on board. Laboratory data reviewed. 04/11/2024 Patient is currently lying in the bed. Awake alert and oriented x 3. Afebrile. Currently on room air. No nausea vomiting. Denies any complaints of diarrhea. No abdominal pain. No complaints of chest pain or shortness of breath. Blood cultures growing gram-positive cocci and also urine culture shows presumptive staph. Patient is getting MRI of the thoracic spine. Patient does have previous spinal surgery. Cardiology recommends [facility]. Pulmonary and ID is on board. Currently on antibiotic in the form of cefazolin. Current medications reviewed. Objective - Vital Signs Vital signs: Vital Signs Temp 98 F 04/11/24 19:54 Pulse 90 04/11/24 19:54 Resp 14 04/11/24 19:54 BP 133/76 04/11/24 19:54 Pulse Ox 98 04/11/24 19:54 FiO2 Intake & Output 04/11/24 04/11/24 04/12/24 06:59 18:59 06:59 Intake Total 0 1885.341 Output Total 240 Balance -240 1885.341 Intake: IV 100 ceFAZolin 2 gm In Sodium 100 Chloride 0.9% 50 ml @ 100 mls/hr IVPB Q8HR [facility] Rx# :[id number] Intake, IV Titration 347.341 Amount Heparin Sod,Pork in 0.45% 247.341 NaCl 25,000 unit In 0.45 % NaCl 1 250ml.bag @ 12 UNITS/KG/HR 9.253 mls/hr IV .Q24H [facility] Rx#: [id number] ceFAZolin 2 gm In Sodium 100 Chloride 0.9% 50 ml @ 100 mls/hr IVPB Q8HR [facility] Rx# :[id number] Oral 0 1438 Output: Post Void Residual 240 Other: Voiding Method Toilet Toilet Toilet # Voids 1 4 # Bowel Movements 0 - Exam PHYSICAL EXAMINATION: Patient is lying in the bed comfortably, no acute distress, awake alert and oriented.. HEENT: Normocephalic. Neck is supple. Pupils reactive. Nostrils clear. Oral cavity is moist. Neck reveals no JVD, carotid bruits, or thyromegaly. CHEST EXAMINATION: Trachea is central. Symmetrical expansion. Lung agosto clear to auscultation and percussion. CARDIAC: Normal S1, S2 with no gallops. No murmurs ABDOMEN: Soft. Bowel sounds normal. No organomegaly. No abdominal bruits. Extremities: reveal no edema. No clubbing or cyanosis Neurologically awake, alert, oriented x3 with well-coordinated movements. No focal deficits noted Skin: No rash or skin lesions. Psychiatric: Coperative. Nonsuicidal Musculoskeletal: No joint swelling or deformity. Normal range of motion. - Labs CBC & Chem 7: 04/09/24 01:41 04/09/24 15:55 Labs: Abnormal Lab Results - Last 24 Hours (Table) 04/11/24 04/11/24 Range/Units 11:50 11:50 ESR 46 H (0-20) mm/Hr APTT 41.4 H (22.0-30.0) sec Microbiology - Last 24 Hours (Table) 04/10/24 07:17 Blood Culture - Preliminary Blood 04/08/24 22:20 Urine Culture - Final Urine,Voided Staphylococcus aureus 04/08/24 18:25 Blood Culture Gram Stain - Final Blood Blood Culture - Final Staphylococcus aureus Molecular ID 04/08/24 18:10 Blood Culture Gram Stain - Final Blood Blood Culture - Final Staphylococcus aureus Assessment and Plan Assessment: Acute diarrhea with generalized weakness and fatigue Sepsis/septic shock requiring pressor support. Currently off pressors.. Gram-positive cocci bacteremia Gram-positive cocci urinary tract infection Elevated troponin level possible type II [place] Acute CHF with ejection fraction 30 to 35%, apical hypokinesis EF, mild and moderate to severe AR Acute kidney injury with possible ATN secondary to hemodynamic instability. 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 Prostatomegaly as noted on CT of the abdomen pelvis. Elevated liver enzymes Currently everyday smoker DVT prophylaxis and GI prophylaxis. Plan: Patient will be continued on IV antibiotics. Patient was on pressor support with Levophed. Currently off pressor support. Was on IV hydration. Currently tolerating oral diet. Patient was on heparin drip due to elevated troponin level and cardiomyopathy. Continue with aspirinand statins Follow-up final culture reports. MRI of the thoracic spine was ordered. Critical care team, cardiology and ID is on board. Prognosis is guarded at this time. Time with Patient: Greater than 30
--- NOTE | 2024-04-12 10:42 | P.CNOR ---
History of Present Illness - [facility] Consult date: 04/12/24 Requesting physician: Noe Grant Consult reason: other (T9-10 prevertebral abscess) History of present illness: Patient is a 64-year-old male who presented to the hospital on 04/08/2024 due to weakness and diarrhea. Patient presented to the ER due to episode of weakness at home where he is unable to stand up while at the bathroom. Patient was found by his who called EMS. Patient does have a past medical history significant for hypertension, sleep apnea, infective endocarditis in 2016, history of prevertebral abscess in 2019 with surgery performed by Dr. Ness through [facility]. Pulmonology, infectious disease following patient patient did have a positive blood culture with MSSA. Orthopedics was consulted due to prevertebral abscess at T9-T10. Patient was seen at bedside this morning on 3 S. Patient states he is not currently having any back pain. Patient says since he has been in the hospital he has been up walking around a little bit and while he does have a tough time standing up he does not have any pain. Patient denies any numbness or tingling in the lower extremities. Patient denies any issues with bowel/bladder control. Patient denies any other orthopedic issues at this time. Past Medical History Past Medical History: Hypertension, Osteoarthritis (OA), Skin Disorder, Sleep Apnea/CPAP/BIPAP Additional Past Medical History / Comment(s): exczema, heart murmur, hx. of endocarditis 2014, used to use CPAP, hx. of gastric ulcer History of Any Multi-Drug Resistant Organisms: MRSA Year Discovered:: 2019 MDRO Source:: spine Past Surgical History: Back Surgery Additional Past Surgical History / Comment(s): LYMPH NODE REMOVEDbenign, had spinal/back surgery related to MRSA infection, surg. for gastric ulcer Past Anesthesia/Blood Transfusion Reactions: No Reported Reaction Past Psychological History: No Psychological Hx Reported Smoking Status: Current every day smoker Past Alcohol Use History: Occasional Past Drug Use History: None Reported - Past Family History Father Family Medical History: Coronary Artery Disease (CAD), Liver Disease Mother Family Medical History: Myocardial Infarction (MA) Medications and Allergies Home Medications Medication Instructions Recorded Confirmed Type carvediloL [Coreg] 12.5 mg PO BID 10/16/21 04/08/24 History Ketorolac [Toradol] 10 mg PO Q6HR PRN #15 tab 04/02/24 04/08/24 Rx Lidocaine 5% Patch [Lidoderm 5% 1 patch TOPICAL DAILY PRN #30 patch 04/02/24 04/08/24 Rx Patch] Orphenadrine [Norflex] 100 mg PO Q12H PRN #20 tab 04/02/24 04/08/24 Rx Fluticasone Nasal [place] [Flonase 1 spray EA NOSTRIL DAILY PRN 04/08/24 04/08/24 History Nasal Linn] Losartan [Cozaar] 25 mg PO DAILY 04/08/24 04/08/24 History Allergies Allergy/AdvReac Type Severity Reaction Status Date / Time No Known Allergies Allergy Verified 04/08/24 18:32 Physical Examination Inspection: Negative for any open fractures, significant erythema, ecchymosis, open wounds. Positive for kyphotic deformity at the mid back. Sensation: Equal, symmetric, bilateral intact throughout the upper and lower extremities Palpation: NTTP throughout spine on exam. NTTP throughout bilateral lower extremities on exam Range of motion: Full range of motion throughout bilateral upper extremities and lower extremities on exam Motor: 4+/5 in all major motor groups in bilateral upper and lower extremities on exam Neurovascular: Radial pulse intact, 2+ bilaterally. Cap refill under 3 seconds in digits of upper extremities. Special test: Negative Armida bilaterally. Negative clonus bilaterally. Nega tive Christopher bilaterally. Results - Labs Labs: Abnormal Lab Results - Last 24 Hours (Table) 04/11/24 04/11/24 Range/Units 11:50 11:50 ESR 46 H (0-20) mm/Hr APTT 41.4 H (22.0-30.0) sec Microbiology - Last 24 Hours (Table) 04/10/24 07:17 Blood Culture - Preliminary Blood 04/08/24 22:20 Urine Culture - Final Urine,Voided Staphylococcus aureus 04/08/24 18:25 Blood Culture Gram Stain - Final Blood Blood Culture - Final Staphylococcus aureus Molecular ID 04/08/24 18:10 Blood Culture Gram Stain - Final Blood Blood Culture - Final Staphylococcus aureus H & H 04/08/24 04/09/24 Range/Units 18:10 01:41 Hgb 14.2 12.2 L (13.0-17.5) gm/dL Hct 41.0 36.2 L (39.0-53.0) % Coagulation 04/08/24 04/09/24 Range/Units 18:10 01:41 INR 1.2 H 1.3 H (<1.2) Result Diagrams: 04/09/24 01:41 04/09/24 15:55 - Diagnostic results CT Scan - lumbar: report reviewed, image reviewed (CT scan thoracic spine does reveal small prevertebral abscess at T9-10; compression deformity at T8 with severe kyphosis) Assessment and Plan Assessment: 1. T8 compression deformity; possible prevertebral abscess at T9-10 Plan: 1. T8 compression deformity; possible prevertebral abscess at T9-10 - CT scan thoracic spine does reveal small prevertebral abscess at T9-10; compression deformity at T8 with severe kyphosis. I did discuss the findings of the exam and imaging with my attending, Dr. Bhatia. At this time we are recommending patient to be transferred to a higher level of care. Patient likely will need intensive surgery involving multiple specialties including cardiothoracic and neuro. patient may weight-bear as tolerated with walker and assistance as needed. Pain medication as needed. We will defer the rest of the care during patients stay to the primary team. Orthopedics will be available for any questions 2. Appreciate medical, ID, pulmonology, cardio management 3. Pain management -Tylenol 4. DVT prophylaxis - aspirin 5. GI prophylaxis - pepcid 6. PT/OT -weightbearing as tolerated with walker and assistance as needed 7. Encourage incentive spirometer use 8. Appreciate consult Time with Patient: Less than 30
[2024-04-12 10:50] LABS: Basophils # (A) 0.1 k/uL (0-0.2); Basophils % (A) 1 %; Eosinophils # (A) 0.2 k/uL (0-0.7); Eosinophils % (A) 2 %; HCT 38.5 % (39.0-53.0); HGB 12.7 gm/dL (13.0-17.5); Lymphocytes # (A) 0.7 k/uL (1.0-4.8); Lymphocytes % (A) 8 %; MCH 30.2 pg (25.0-35.0); MCV 91.4 fL (80.0-100.0); Mean Platelet Volume 7.3; Monocytes # (A) 0.5 k/uL (0-1.0); Monocytes % (A) 5 %; Neutrophils # (A) 7.5 k/uL (1.3-7.7); Neutrophils % (A) 82 %; Platelet Count 236 k/uL (150-450); RBC 4.21 m/uL (4.30-5.90); RDW 12.9 % (11.5-15.5); WBC 9.1 k/uL (3.8-10.6)
[2024-04-12 11:25] LABS: African American GFR (CKD) >90 (>60 ml/min/1.73 sqM); Anion Gap 6 mmol/L; Blood Urea Nitrogen 6 mg/dL (9-20); Carbon Dioxide 21 mmol/L (22-30); Chloride 106 mmol/L (98-107); Glucose 84 mg/dL (74-99); Non-African American GFR(CKD) >90 (>60 ml/min/1.73 sqM); Potassium 3.7 mmol/L (3.5-5.1); Sodium 133 mmol/L (137-145)
--- NOTE | 2024-04-12 12:31 | P.PN ---
Subjective Progress Note Date: 04/12/24 HISTORY OF PRESENTING ILLNESS 64-year-old male with past medical history of hypertension, obstructive sleep apnea, prior endocarditis in 2016, spinal surgery secondary to MRSA infection, chronic smoker, with residual severe aortic regurgitation based off CHRIS from 2019. He is known to Dr. Quezada. He has never had any cardiac interventions done in the past. He has not had any prior cardiac catheterization. This time he presented to the hospital because of complaints of substernal chest pressure, shortness of breath increased cough. He was also reporting fever of 102. He also reports generalized weakness and fatigue along with poor oral intake and diarrhea. On admission labs WBC 11.9, hemoglobin 12.2, platelet 171, sodium 127, BUN 26, creatinine 1.09. Troponin 2.6, 2.7., Elevated lactate On admission he was hypertensive for which she was placed on low-dose norepinephrine drip. He also got 3 L fluid resuscitation for sepsis. Echo showed an EF of 30 to 35%, apical hypokinesia, mild aortic stenosis and moderate to severe aortic regurgitation. Progress note 04/10/2024 Patient is doing better as compared to yesterday. He is off pressors, systolic blood pressure 110 mmHg, heart rate 90 beats minute, sinus rhythm. No arrhythmias on telemetry monitoring over last 6 hours. IV fluids 100 cc/h, good urine output, able to tolerate oral intake, on liquid diet at this time. No abdominal pain reported. No reported chest pain chest pressure 04/11 Patient denies having any chest pain and no difficulty breathing. He is seen today on the cardiac stepdown unit. Blood pressure 148/76, heart rate 86, pulse ox 98% on room air. C-reactive protein 20.2. Echocardiogram performed in the office on 12/07/2023 revealed EF of 55%, moderate left ventricular hypertrophy. Severe aortic regurgitation and moderate aortic stenosis. Mild mitral regurgitation. Mild tricuspid regurgitation. Mild pulm onic regurgitation. PASP 32 mmHg. Patient follows in the office with Dr. Heraclio Hermosillo. Patient has been maintained on heparin drip. Patient is scheduled for MRI of the thoracic spine to determine source of bacteremia. 04/12 Yesterday, patient underwent MRI of the thoracic spine which found a collection in the T9-10 and could represent osteomyelitis. He has been seen by orthopedic spine and recommendations are to transfer to tertiary care center. Blood pressure 153/81, heart rate 77, pulse ox 96% on room air. Patient has been afebrile since admission. Repeat blood work reveals WBC 9.1, hemoglobin 12.7. Sodium 133, potassium 3.7, BUN 16 creatinine 0.53. PHYSICAL EXAMINATION Vital signs reviewed. Head: Normocephalic. Eyes: Sclerae nonicteric. Neck: Brisk carotid upstroke, no jugular venous distention. Lungs: Clear to auscultation. Heart: Regular rate and rhythm, S1-S2, no S3, 2/6 systolic and diastolic murmur. Abdomen: Soft nontender, positive bowel sounds. Extremities: No edema, intact distal pulses. Neuro: Alert, oritented, no focal deficits. Detailed neuro exam was not performed. ASSESSMENT Elevated troponin, likely type II NSTEMI versus stress cardiomyopathy, cannot rule out coronary artery disease Septic shock, Staph aureus bacteremia of unknown etiology Prior history of endocarditis involving aortic valve in 2016 Prior moderate ascending aortic regurgitation Generalized weakness and diarrhea Essential hypertension Hyponatremia BIN, secondary dehydration Tobacco smoker PLAN Continue patient on aspirin 81 mg daily, add a atorvastatin 40 mg daily and add lisinopril 2.5 mg daily Continue Toprol XL 25 mg daily metoprolol XL 25 mg daily Arrangements are being made for transfer to tertiary care center Nurse practitioner note has been reviewed, I agree with documented findings and plan of care. Patient was seen and examined. Objective - Vital Signs Vital signs: Vital Signs Temp 98.7 F 04/12/24 08:00 Pulse 84 04/12/24 08:00 Resp 16 04/12/24 08:00 BP 148/75 04/12/24 08:00 Pulse Ox 97 04/12/24 08:00 FiO2 Intake & Output 04/11/24 04/12/24 04/12/24 18:59 06:59 18:59 Intake Total 1885.341 Balance 1885.341 Intake: IV 100 ceFAZolin 2 gm In Sodium 100 Chloride 0.9% 50 ml @ 100 mls/hr IVPB Q8HR [facility] Rx# :[id number] Intake, IV Titration 347.341 Amount Heparin Sod,Pork in 0.45% 247.341 NaCl 25,000 unit In 0.45 % NaCl 1 250ml.bag @ 12 UNITS/KG/HR 9.253 mls/hr IV .Q24H [facility] Rx#: [id number] ceFAZolin 2 gm In Sodium 100 Chloride 0.9% 50 ml @ 100 mls/hr IVPB Q8HR [facility] Rx# :[id number] Oral 1438 Other: Voiding Method Toilet Toilet # Voids 4 2 # Bowel Movements 0 - Labs CBC & Chem 7: 04/12/24 10:18 04/12/24 10:18 Labs: Abnormal Lab Results - Last 24 Hours (Table) 04/11/24 04/11/24 Range/Units 11:50 11:50 ESR 46 H (0-20) mm/Hr APTT 41.4 H (22.0-30.0) sec Microbiology - Last 24 Hours (Table) 04/10/24 07:17 Blood Culture - Preliminary Blood 04/08/24 22:20 Urine Culture - Final Urine,Voided Staphylococcus aureus 04/08/24 18:25 Blood Culture Gram Stain - Final Blood Blood Culture - Final Staphylococcus aureus Molecular ID 04/08/24 18:10 Blood Culture Gram Stain - Final Blood Blood Culture - Final Staphylococcus aureus
--- NOTE | 2024-04-12 15:04 | P.PN ---
Subjective Progress Note Date: 04/12/24 Patient is a 64-year-old male with a past medical history of hypertension, obstructive sleep apnea, infective endocarditis in 2016, history of gastric ulcer and prior history of back surgery and currently everyday smoker. Patient presents to ER with complaints of generalized weakness fatigue and diarrhea for 3 to 4 days. Patient states that he has been having diarrhea and progressive weakness. Patient is unable to stand up while going to the bathroom and had diarrhea all over. EMS was called by his . Patient was febrile with Tmax of 102.3 on admission and heart rate 101 and pulse ox 94% on room air. Patient became hypotensive with blood pressure went down to 86 over 53 mmHg. Patient otherwise denies any complaints of abdominal pain. Denies any dysuria or hematuria. Denies any chest pain or shortness of breath. No cough or sputum production. No nausea or vomiting. Chest x-ray showed low lung volumes with generalized hazy appearance which could represent atelectasis versus pulmonary edema correlate with serum BNP. CT of the abdomen pelvis showed no evidence for acute abdominal process. Prostatomegaly, correlate with serum PSA, increased kyphosis of the spine due to T9 compression deformity with complete height loss anteriorly. EKG showed possible left atrial enlargement left anterior fascicular block. 2D echocardiogram showed left ventricular ejection fraction estimated at 30 to 35%, apical hypokinesia and mildly increased septal wall thickness. Normal right ventricular size and function. Mild aortic stenosis with peak gradient of 23 mmHg and a mean gradient of 40 mmHg. Moderate to severe AR Laboratory pressure WBC 13.0 hemoglobin 14.2 and platelets 186 Sodium 121 potassium 4.6 chloride 91 bicarb is 18 BUN 26 and creatinine 1.56 and lactic acid 4.7 AST 94 ALT 50 alk phos 141 and troponin 0.740 proBNP 2830 Urinalysis showed increased versus gravity with small leukocyte esterase and 6 RBCs and 15 WBCs. Influenza A B RSV and COVID-19 PCR not detected. 04/10/2024 Patient is in the MICU. Currently sitting in the chair. Awake alert and oriented x 3. No complaints of chest pain or shortness of breath. Denies any abdominal pain. No nausea vomiting. Patient is getting IV antibiotics of cefazolin. Blood cultures grew positive cocci Denies any complaints of diarrhea today. Symptomatically improving. Patient is on heparin drip due to elevated troponin level. Cardiology and pulmonary is on board. Laboratory data reviewed. 04/11/2024 Patient is currently lying in the bed. Awake alert and oriented x 3. Afebrile. Currently on room air. No nausea vomiting. Denies any complaints of diarrhea. No abdominal pain. No complaints of chest pain or shortness of breath. Blood cultures growing gram-positive cocci and also urine culture shows presumptive staph. Patient is getting MRI of the thoracic spine. Patient does have previous spinal surgery. Cardiology recommends CHRIS. Pulmonary and ID is on board. Currently on antibiotic in the form of cefazolin. 04/12/2024 Patient is seen in follow-up today after evaluation of orthopedics with the MRI of the spine recommending transfer to tertiary treatment center with neurosurgery for evaluation. There is concerned of an abscess along with osteomyelitis. Patient does have infectious disease following maintained on antibiotics and working on transfer. Patient has been accepted at [facility] by Dr. Simeon internal medicine with neurosurgery Dr. Wiseman on consult. Orthopedics Dr. Hickman is aware as well although reports this is a neurosurgery recommendation and treatment situation. Patient is agreeable with the transfer and is aware we are currently awaiting a bed. Patient is afebrile with no reported chest pain or shortness of breath. Patient reports his pain is currently managed at this time. Patient also evaluated by cardiology recommending CHRIS for evaluation of any valve abnormalities. Patient does have history of infective endocarditis in the past. Review of systems: Constitutional: No reports of fatigue, fever, or chills Cardiovascular: No reports of chest pain or palpitations Respiratory: No reports of shortness of breath or cough GI: No reports of nausea, vomiting, or diarrhea : No reports of dysuria or retention Neurovascular: reports of generalized weakness and continued back pain All medications have been reviewed Physical exam: Patient is lying in the bed , awake alert and oriented x 3, well-developed, elderly appearing.. HEENT: Normocephalic. Neck is supple. Pupils reactive. Nostrils clear. Oral cavity is moist. Neck reveals no JVD, carotid bruits, or thyromegaly. CHEST EXAMINATION: Trachea is central. Symmetrical expansion. Lung agosto clear to auscultation and percussion. CARDIAC: Normal S1, S2 with no gallops. No murmurs ABDOMEN: Soft. Bowel sounds normal. No organomegaly. No abdominal bruits. Extremities: reveal no edema. No clubbing or cyanosis Neurologically awake, alert, oriented x3 with well-coordinated movements. No focal deficits noted Skin: No rash or skin lesions. Psychiatric: Cooperative. Non-suicidal Musculoskeletal: No joint swelling or deformity. Normal range of motion. Assessment: Acute diarrhea with generalized weakness and fatigue Sepsis/septic shock requiring pressor support. Currently off pressors.. Gram-positive cocci bacteremia with MSSA Gram-positive cocci urinary tract infection Elevated troponin level possible type II ND Acute CHF with ejection fraction 30 to 35%, apical hypokinesis EF, mild and moderate to severe AR Acute kidney injury with possible ATN secondary to hemodynamic instability. 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 Elevated liver enzymes Currently everyday smoker DVT prophylaxis and GI prophylaxis. Plan: Patient will be continued on IV antibiotics. Patient was on pressor support with Levophed. Currently off pressor support. Was on IV hydration. Currently tolerating oral diet. Patient was on heparin drip due to elevated troponin level and cardiomyopathy. Patient will likely need CHRIS once more stable as patient does have history of infective endocarditis and there is concerns on MRI imaging of the spine of an abscess with osteomyelitis Orthopedics was consulted and evaluated the imaging recommending transfer to tertiary treatment center with neurosurgery evaluation. Patient is aware and agreeable to the transfer and has been initiated. Patient has been accepted at [facility] with Dr. Simeon internal medicine with neurosurgeon Dr. Wiseman for evaluation. Patient currently awaiting a bed assignment and nursing staff is aware. Continue with aspirin and statins Culture showing MSSA bacteremia with infectious disease following. Due to multiple complex medical issues, overall prognosis is guarded. The impression and plan of care has been dictated by Eli Garcia, Nurse Practitioner as directed. Dr. Leander MD I have performed a history and examination and MDM of this patient, discussed the same with the dictator, and agree with the dictator's assessment and plan as written ,documented as a scribe. Based on total visit time, I have performed more than 50% of the visit. Objective - Vital Signs Vital signs: Vital Signs Temp 98.7 F 04/12/24 08:00 Pulse 84 04/12/24 08:00 Resp 16 04/12/24 08:00 BP 148/75 04/12/24 08:00 Pulse Ox 97 04/12/24 08:00 FiO2 Intake & Output 04/11/24 04/12/24 04/12/24 18:59 06:59 18:59 Intake Total 1885.341 Balance 1885.341 Intake: IV 100 ceFAZolin 2 gm In Sodium 100 Chloride 0.9% 50 ml @ 100 mls/hr IVPB Q8HR [facility] Rx# :[id number] Intake, IV Titration 347.341 Amount Heparin Sod,Pork in 0.45% 247.341 NaCl 25,000 unit In 0.45 % NaCl 1 250ml.bag @ 12 UNITS/KG/HR 9.253 mls/hr IV .Q24H [facility] Rx#: [id number] ceFAZolin 2 gm In Sodium 100 Chloride 0.9% 50 ml @ 100 mls/hr IVPB Q8HR [facility] Rx# :[id number] Oral 1438 Other: Voiding Method Toilet Toilet Toilet # Voids 4 2 # Bowel Movements 0 - Labs CBC & Chem 7: 04/12/24 10:18 04/12/24 10:18 Labs: Abnormal Lab Results - Last 24 Hours (Table) 04/11/24 04/11/24 Range/Units 11:50 11:50 ESR 46 H (0-20) mm/Hr APTT 41.4 H (22.0-30.0) sec Microbiology - Last 24 Hours (Table) 04/10/24 07:17 Blood Culture - Preliminary Blood 04/08/24 22:20 Urine Culture - Final Urine,Voided Staphylococcus aureus 04/08/24 18:25 Blood Culture Gram Stain - Final Blood Blood Culture - Final Staphylococcus aureus Molecular ID 04/08/24 18:10 Blood Culture Gram Stain - Final Blood Blood Culture - Final Staphylococcus aureus
--- NOTE | 2024-04-12 15:12 | P.DS ---
Providers Date of admission: 04/08/24 21:18 Expected date of discharge: 04/12/24 Attending physician: Merced Arriola Consults: 04/08/24 21:18 Consult Physician Routine Consulting Provider: [facility] Consult Reason/Comments: nstemi Do you want consulting provider notified?: Yes Consult Physician Routine Consulting Provider: Noe Grant Consult Reason/Comments: septic shock Do you want consulting provider notified?: Yes Consult Physician Stat Consulting Provider: Anurag Foley Consult Reason/Comments: septic shock, nstemi, dehydration Do you want consulting provider notified?: Already Contacted 04/11/24 22:30 Consult Physician Urgent Consulting Provider: Alonzo Bhatia Consult Reason/Comments: T9-10 prevertebral abscess Do you want consulting provider notified?: Yes Primary care physician: Austin Souza Hospital Course: Final diagnosis Acute diarrhea with generalized weakness and fatigue Sepsis/septic shock requiring pressor support. Currently off pressors.. Gram-positive cocci bacteremia with MSSA Gram-positive cocci urinary tract infection Elevated troponin level, likely type II MA Acute CHF with ejection fraction 30 to 35%, apical hypokinesis EF, mild and moderate to severe AR Acute kidney injury with possible ATN secondary to hemodynamic instability. 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 Elevated liver enzymes Currently everyday smoker DVT prophylaxis and GI prophylaxis. Discharge disposition Patient is being transferred in a stable condition with guarded prognosis to [facility] for neurosurgery evaluation and tertiary treatment center. Patient has been accepted by Dr. Simeon internal medicine with neurosurgery Dr. Wiseman on consult. Patient will follow-up with Dr. Souza in the outpatient setting upon discharge. Patient is to continue with IV antibiotics. Patient may ultimately need a cardiology evaluation and CHRIS as well. Total time taken is greater than 35 minutes. Hospital course This is a 64-year-old male who was recently admitted with generalized weakness and fatigue with fevers, acute diarrhea and sepsis present on admission. Patient initially requiring pressor support and noted to have positive bacteremia with MSSA along with a urinary tract infection. Multiple consultations following including cardiology, nephrology, infectious disease along with orthopedics. Patient did have CT abdomen due to the abdominal pain with nausea and vomiting which showed kyphosis of the T9/T10 area with compression deformity and underwent MRI of the spine with high concerns of osteomyelitis and possible formation of abscess. Orthopedic spine evaluated the patient's imaging here recommending transfer to tertiary [facility] center for neurosurgery evaluation. Transfer was initiated after approval from patient and family to be transferred to [facility]. Patient has been accepted and currently awaiting out of bed assignment. Patient is currently maintained on antibiotics in the form of cefazolin and is on our medical floor on telemetry monitoring out of the ICU off pressor support. Patient vital signs are stable and is afebrile and has been evaluated by her acute care nursing assistant and had been r ecommended for possible CHRIS for evaluation of the valves. Patient does have history of infective endocarditis in 2015. Vital signs are stable and patient is aware currently awaiting a bed assignment. Transfer team will call floor when ready. All imaging and medical records have been placed on the disc for transfer. Currently no reports of chest pain, shortness of breath, or palpitations. Patient is afebrile. No reports of nausea or vomiting and patient is tolerating diet. Patient will be going to [facility] for further neurosurgery evaluation. Overall guarded prognosis Physical exam: Gen: This is a 64-year-old male who is awake, alert and oriented x 3, well- developed, well-nourished, elderly appearing HEENT: Head is atraumatic, normocephalic. Pupils equal, round. Sclerae is anicteric. NECK: Supple. No JVD. No lymphadenopathy. No thyromegaly. LUNGS: Clear to auscultation. No wheezes or rhonchi. No intercostal retractions. HEART: Regular rate and rhythm. No murmur. ABDOMEN: Soft. Bowel sounds are present. No masses. No tenderness. EXTREMITIES: No pedal edema. No calf tenderness. NEUROLOGICAL: Patient is awake, alert and oriented x3. Cranial nerves 2 through 12 are grossly intact. Diffusely weak Please refer to medication reconciliation sheet for a list of medications. The impression and plan of care has been dictated by Nurse Rajiv Dacosta as directed. Dr. Leander MD I have performed a history and examination and MDM of this patient, discussed the same with the dictator, and agree with the dictator's assessment and plan a s written ,documented as a scribe. Based on total visit time, I have performed more than 50% of the visit. Patient Condition at Discharge: Stable Plan - Discharge Summary Discharge Rx Participant: Yes New Discharge Prescriptions: No Action carvediloL [Coreg] 12.5 mg PO BID Lidocaine 5% Patch [Lidoderm 5% Patch] 1 patch TOPICAL DAILY PRN #30 patch PRN Reason: Pain Ketorolac [Toradol] 10 mg PO Q6HR PRN #15 tab PRN Reason: Pain Fluticasone Nasal [place] [Flonase Nasal [place]] 1 spray EA NOSTRIL DAILY PRN PRN Reason: Allergy Symptoms Losartan [Cozaar] 25 mg PO DAILY Orphenadrine [Norflex] 100 mg PO Q12H PRN #20 tab PRN Reason: Pain Discharge Medication List carvediloL [Coreg] 12.5 mg PO BID 10/16/21 [History] Ketorolac [Toradol] 10 mg PO Q6HR PRN #15 tab 04/02/24 [Rx] Lidocaine 5% Patch [Lidoderm 5% Patch] 1 patch TOPICAL DAILY PRN #30 patch 04/02/24 [Rx] Orphenadrine [Norflex] 100 mg PO Q12H PRN #20 tab 04/02/24 [Rx] Fluticasone Nasal [place] [Flonase Nasal [place]] 1 spray EA NOSTRIL DAILY PRN 04/08/24 [History] Losartan [Cozaar] 25 mg PO DAILY 04/08/24 [History] Follow up Appointment(s)/Referral(s): Austin Souza MD [Primary Care Provider] - 1-2 days
--- NOTE | 2024-04-12 16:31 | P.PN ---
Subjective Progress Note Date: 04/12/24 Principal diagnosis: Reason for follow-up is sepsis and MSSA bacteremia Patient is a 64-year-old male past medical history of hypertension osteoarthritis sleep apnea did have a history of chronic back pain presented to hospital for weakness and diarrhea patient was noticed to be septic and subsequently did have a positive blood culture with MSSA prompting this consul tation. On today's evaluation that is 04/12/2024, the patient continues to be afebrile, the patient is on room air and breathing comfortably, the Pt denies having any chest pain or cough, the patient denies having any abdominal pain no vomiting or any diarrhea has been reported by the nursing staff patient denies any worsening pain to the mid back area. Patient white count normalized to 9.1, creatinine 0.53 blood culture repeat currently pending MRI suggestive of T9-10 prevertebral abscess Objective - Vital Signs Vital signs: Vital Signs Temp 98.4 F 04/12/24 11:28 Pulse 77 04/12/24 11:28 Resp 15 04/12/24 11:28 BP 153/81 04/12/24 11:28 Pulse Ox 96 04/12/24 11:28 FiO2 Intake & Output 04/11/24 04/12/24 04/12/24 18:59 06:59 18:59 Intake Total 1885.341 Balance 1885.341 Intake: IV 100 ceFAZolin 2 gm In Sodium 100 Chloride 0.9% 50 ml @ 100 mls/hr IVPB Q8HR RELL Rx# :[id number] Intake, IV Titration 347.341 Amount Heparin Sod,Pork in 0.45% 247.341 NaCl 25,000 unit In 0.45 % NaCl 1 250ml.bag @ 12 UNITS/KG/HR 9.253 mls/hr IV .Q24H RELL Rx#: [id number] ceFAZolin 2 gm In Sodium 100 Chloride 0.9% 50 ml @ 100 mls/hr IVPB Q8HR RELL Rx# :[id number] Oral 1438 Other: Voiding Method Toilet Toilet Toilet # Voids 4 2 # Bowel Movements 0 - Exam GENERAL DESCRIPTION: Middle-age male up in the chair in no distress RESPIRATORY SYSTEM: Unlabored breathing , decreased breath sounds at bases HEART: S1 S2 regular rate and rhythm , ABDOMEN: Soft , no tenderness EXTREMITIES: No edema feet - Labs CBC & Chem 7: 04/12/24 10:18 04/12/24 10:18 Labs: Abnormal Lab Results - Last 24 Hours (Table) 04/11/24 04/12/24 04/12/24 Range/Units 11:50 10:18 10:18 RBC 4.21 L (4.30-5.90) m/uL Hgb 12.7 L (13.0-17.5) gm/dL Hct 38.5 L (39.0-53.0) % Lymphocytes # 0.7 L (1.0-4.8) k/uL ESR 46 H (0-20) mm/Hr Sodium 133 L (137-145) mmol/L Carbon Dioxide 21 L (22-30) mmol/L BUN 6 L (9-20) mg/dL Creatinine 0.53 L (0.66-1.25) mg/dL Calcium 8.0 L (8.4-10.2) mg/dL Microbiology - Last 24 Hours (Table) 04/10/24 07:17 Blood Culture - Preliminary Blood 04/08/24 22:20 Urine Culture - Final Urine,Voided Staphylococcus aureus 04/08/24 18:25 Blood Culture Gram Stain - Final Blood Blood Culture - Final Staphylococcus aureus Molecular ID 04/08/24 18:10 Blood Culture Gram Stain - Final Blood Blood Culture - Final Staphylococcus aureus Assessment and Plan (1) MSSA bacteremia Current Visit: Yes Status: Acute Code(s): R78.81 - BACTEREMIA; B95.61 - METHICILLIN SUSCEP STAPH INFCT CAUSING DIS CLASSD ELSWHR SNOMED Code(s): 133382144 (2) Vertebral abscess Current Visit: Yes Status: Acute Code(s): M46.20 - OSTEOMYELITIS OF VERTEBRA, SITE UNSPECIFIED SNOMED Code(s): 193362877 Plan: 1patient presented to hospital with sepsis in this patient who did have a fever hypotension elevated white count now with evidence of MSSA bacteremia patient did have a back pain mention previous back surgery with a CT abdominal pelvis that shows T9 compression fracture and with a question of osteomyelitis/discitis 2--blood cultures has been repeated document clearance of bacteremia sed rate is 46 3-patient MRI of the thoracic spine has been suggestive of T9-10 prevertebral abscess spine surgery was consulted who has evaluated the patient recommending transfer to tertiary care for now continue with the cefazolin multiple question concern answered Dictation was produced using [email or web address] dictation software. please excuse any grammatical, word or spelling errors. Time with Patient: Less than 30
--- NOTE | 2024-04-12 22:22 | P.PN ---
Subjective Progress Note Date: 04/12/24 This is a very pleasant 64-year-old male patient with a history of hypertension, obstructive sleep apnea, endocarditis, spinal surgery secondary to MRSA infection, gastric ulcer repair, chronic and ongoing tobacco dependence. He presented here to the emergency room yesterday with a 3-day history of weakness and diarrhea. He was also found to have EKG changes by EMS. Patient did not have any complaints of chest pain, shortness of breath, cough or congestion. He was found to be febrile at 102. White count 11.9. Hemoglobin 12.2. Platelets 171. Sodium 127. Potassium 3.6. Bicarb 14. BUN 26. Creatinine 1.09. AST 106. ALT 57. Troponins 2.6 and 2.7. Urine did reveal moderate blood and rare bacteria. Blood cultures are pending. He was also hypotensive and admitted to the intensive care unit. He is seen today in consultation. He is sitting up in bed. Awake and alert. Feeling a bit better today compared to yesterday. He has been initiated on vancomycin and Zosyn. He is on a heparin drip. Echocardiogram is pending. Requiring norepinephrine currently at 1.6 mcg/min. Received 3 L of fluid resuscitation. Chest x-ray reveals low lung volumes with generalized hazy appearance represent atelectasis versus pulmonary edema. CT scan of the abdomen revealed no evidence for acute abdominal process. He is currently maintaining good O2 saturations in the 90s on 2 L/min per nasal cannula. Progress note dated April 10, 2024.[id number] male seen in consultation yesterday. The patient was evaluated in the emergency department, for 3 days history of weakness, and diarrhea. He also was found to be febrile. His white count was almost 12,000. Currently, the patient is doing much better. He is currently on room air. He is getting saline at 100 cc an hour. His antibiotic is Ancef, for gram-positive cocci in clusters, and the blood cultures. The patient is a candidate to be transferred out to the cardiac floor. Current labs include a C-reactive protein of 20.2. His highest troponin was 2.790. The patient was also thought to have a non-ST segment elevation myocardial infarction. On today's evaluation of 04/11/2024, the patient is being seen for a follow-up. This patient has recurrent septic events and the patient is currently infected with Staph aureus, MSSA and the patient is currently on IV cefazolin. Doing well. Hemodynamically stable. No altered mentation. His parents thoracic echocardiogram was done on 04/09/2024 and the patient was found to have no evidence of any endocarditis. He has a left ventricular ejection fraction of around 30 to 35%. The patient also has apex is hypokinetic and mildly increased septal wall thickening. The patient has mild aortic stenosis. CAT scan of the abdomen and pelvis was also done that showed no evidence of any acute intra- abdominal process. The patient has a increased kyphosis of the spine along with compression fracture of the T9 spine. The patient is awaiting an MRI of the spine and a CHRIS. Otherwise, he has no specific complaints. No active diarrhea at this point in time. He remains on antibiotics. He does have some eczematous rash over the right upper extremity for which I recommended a steroid cream. Unlikely to be a drug rash at this point in time. On today's evaluation on 04/12/2024, the patient is being seen for a follow-up. As mentioned, the patient has a sepsis with MSSA and unfortunately, the MRI of the spine was noted to be abnormal and the findings were suspicious for de velopment of a collection in the anterior T9/T10 spine and a small prevertebral abscess was also suspected. There was increased signal within T9 which could potentially indicate an osteomyelitis. 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 The patient himself is not having any back pain. No focal neurological deficit. WBC count at 9.5 and it was 12.7 and a platelet count of 236. BUN is at 6 with a creatinine 0.7 and sodium levels at 133. The patient is currently on room air oxygen with a pulse ox of 95%. Patient is currently being considered to be transferred to [facility] for neurosurgical intervention. His diarrhea has subsided. He is hemodynamically stable. He is known to have CHF with an ejection fraction of 30 to 35% along with mild aortic stenosis and moderate to severe aortic regurgitation. In terms of his renal function, the patient has normalized and the patient has recovered from his acute kidney injury that was present at time of admission. Note that he has had previous history of infectiv e endocarditis back in 2014 Objective - Vital Signs Vital signs: Vital Signs Temp 98.7 F 04/12/24 08:00 Pulse 84 04/12/24 08:00 Resp 16 04/12/24 08:00 BP 148/75 04/12/24 08:00 Pulse Ox 97 04/12/24 08:00 FiO2 Intake & Output 04/11/24 04/12/24 04/12/24 18:59 06:59 18:59 Intake Total 1885.341 Balance 1885.341 Intake: IV 100 ceFAZolin 2 gm In Sodium 100 Chloride 0.9% 50 ml @ 100 mls/hr IVPB Q8HR RELL Rx# :[id number] Intake, IV Titration 347.341 Amount Heparin Sod,Pork in 0.45% 247.341 NaCl 25,000 unit In 0.45 % NaCl 1 250ml.bag @ 12 UNITS/KG/HR 9.253 mls/hr IV .Q24H RELL Rx#: [id number] ceFAZolin 2 gm In Sodium 100 Chloride 0.9% 50 ml @ 100 mls/hr IVPB Q8HR RELL Rx# :[id number] Oral 1438 Other: Voiding Method Toilet Toilet Toilet # Voids 4 2 # Bowel Movements 0 - Exam No acute distress, oriented 3. Currently on room air. HEENT examination is grossly unremarkable. Mucous membranes are moist. No oral lesions. Neck supple. Full range of motion. No adenopathy thyromegaly or neck vein distention. Cardiovascular examination reveals regular rhythm rate. S1-S2 normal. No S3 or S4. Heart sounds distant. A cardiac murmur was appreciated in the left lateral sternal border. This is a grade 2/6. Lungs reveal mostly clear breath sounds. Faint basilar crackles. No wheezes. No rhonchi. Breath sounds are equal bilaterally. Abdomen soft with bowel sounds. No masses or tenderness. Extremities are intact. No cyanosis clubbing or edema. Skin is without rash or lesion. Eczematous rash over the left upper extremity. Neurologic examination is brief but nonfocal. - Labs CBC & Chem 7: 04/12/24 10:18 04/12/24 10:18 Labs: Abnormal Lab Results - Last 24 Hours (Table) 04/11/24 04/11/24 04/12/24 Range/Units 11:50 11:50 10:18 RBC 4.21 L (4.30-5.90) m/uL Hgb 12.7 L (13.0-17.5) gm/dL Hct 38.5 L (39.0-53.0) % Lymphocytes # 0.7 L (1.0-4.8) k/uL ESR 46 H (0-20) mm/Hr APTT 41.4 H (22.0-30.0) sec Microbiology - Last 24 Hours (Table) 04/10/24 07:17 Blood Culture - Preliminary Blood 04/08/24 22:20 Urine Culture - Final Urine,Voided Staphylococcus aureus 04/08/24 18:25 Blood Culture Gram Stain - Final Blood Blood Culture - Final Staphylococcus aureus Molecular ID 04/08/24 18:10 Blood Culture Gram Stain - Final Blood Blood Culture - Final Staphylococcus aureus Assessment and Plan Plan: Staphylococcal sepsis and the patient has MSSA bacteremia currently on IV cefazolin. Paraspinal abscess/osteomyelitis and MRI of the thoracic spine has been suggestive of T9-10 prevertebral abscess spine Generalized weakness secondary to 3 days of diarrhea and suspected sepsis with septic shock, recovered and the patient is currently hemodynamically stable Acute kidney injury secondary to dehydration, recovered Hyponatremia secondary to above, recovered Hypotension secondary to above, requiring pressor support, recovered and the patient is hemodynamically stable Non-ST segment elevation myocardial infarction, troponin peaked at 2.7 and the patient is going to need a cardiac catheterization at the later stage and along with that if possible CHRIS, rule out cardiac abscess formation systolic versus diastolic congestive heart failure, with impaired LV function with an ejection fraction of 30 to 35% along with segmental wall motion abnormalities Chronic and ongoing tobacco dependence. History of hypertension. History of obstructive sleep apnea. History of endocarditis in 2014. History of spinal surgery secondary to a MRSA infection. History of gastric ulcer with repair. T9 compression fracture along with kyphosis of the thoracic spine Plan: Clinically stable Hemodynamically stable Oxygenation is improved and the patient is currently on room air oxygen Continue IV cefazolin for now Repeat blood cultures from 04/10/2024 and 04/11/2024 are negative MRI of the spine was noted and the patient is being considered to be transferred to [facility] for neurosurgical/spine surgical evaluation regarding the possibility of paraspinal abscess and osteomyelitis. The patient is going to need a cardiac catheterization and CHRIS at a later stage as the patient sustained an acute elevation of the troponin in addition to Staphylococcus septicemia and obviously a endocarditis needs to be ruled out. Infectious disease on the case Clinically and hemodynamically stable Will continue to follow
[2024-04-12 23:19] VITALS: BP 150/83; PULSE 97; RESP 18; TEMP 97.9
--- NOTE | 2024-04-13 12:28 | CDI ---
Documentation Clarification Form Date: 04/13/24 From: Malia La Admit Date: 04/08/2024 09:18:00 PM Patient Name: Horacio Lazaro Visit Number: [id number] Discharge Date: 04/12/2024 11:34:00 PM ATTENTION: The Clinical Documentation Specialists (CDI) and [facility] Coding Staff appreciate your assistance in clarifying documentation. Please respond to the clarification below the line at the bottom and electronically sign. The CDI & [facility] Coding staff will review the response and follow-up if needed. Please note: Queries are made part of the Legal Health Record. If you have any questions, please contact the author of this message via ITS. Dr. Gael Tabor, Systolic versus diastolic congestive heart failure s documented numerous progress notes, but is not further clarified in subsequent documentation. Clarification is requested. History/Risk Factors: Hypertension with heart failure, MSSA sepsis w septic shock, Type 2 MO, acute respiratory failure w hypoxia, BIN, cardiomyopathy, hyponatremia, compression fx thoracic, UTI Clinical Indicators: Echo: Left ventricular ejection fraction is estimated at 30-35%. [id number] Treatment: Echo, no Lasix given Please clarify if the type and acuity of CHF: [ x ] Acute systolic CHF [ ] Chronic systolic CHF [ ] Acute diastolic CHF [ ] Chronic diastolic CHF [ ] Acute systolic & diastolic CHF [ ] Chronic systolic & diastolic CHF [ ] Other condition, please specify [ ] Unable to determine MTDD
== END 2024-04-12 23:34 | disposition short-term general hospital (02) | DRG 871 ==
LOC: EC 17:53 → 2SICU 21:18 → 3SCARD 04-10 21:17
PROVIDERS: ADMIT Hospitalist; ATTEND Hospitalist
PROC: 06HY33Z Insertion of Infusion Device into Lower Vein, Percutaneous Approach (ICD-10-PCS; principal; 2024-04-08)
PROC: 3E043XZ Introduction of Vasopressor into Central Vein, Percutaneous Approach (ICD-10-PCS; principal; 2024-04-08)
DX: A41.01 Sepsis due to Methicillin susceptible Staphylococcus aureus (principal); I21.A1 Myocardial infarction type 2; J96.01 Acute respiratory failure with hypoxia; R65.21 Severe sepsis with septic shock; I50.21 Acute systolic (congestive) heart failure; N17.9 Acute kidney failure, unspecified; I42.9 Cardiomyopathy, unspecified; M48.54XA Collapsed vertebra, not elsewhere classified, thoracic region, initial encounter for fracture; E87.1 Hypo-osmolality and hyponatremia; Q67.8 Other congenital deformities of chest; M46.24 Osteomyelitis of vertebra, thoracic region; N39.0 Urinary tract infection, site not specified; I11.0 Hypertensive heart disease with heart failure; I35.2 Nonrheumatic aortic (valve) stenosis with insufficiency; Z28.310 Unvaccinated for COVID-19; M48.04 Spinal stenosis, thoracic region; E87.8 Other disorders of electrolyte and fluid balance, not elsewhere classified; I44.4 Left anterior fascicular block; E86.0 Dehydration; E86.1 Hypovolemia; M40.204 Unspecified kyphosis, thoracic region; L30.9 Dermatitis, unspecified; G47.33 Obstructive sleep apnea (adult) (pediatric); G89.29 Other chronic pain; M54.9 Dorsalgia, unspecified; M19.90 Unspecified osteoarthritis, unspecified site; N40.0 Benign prostatic hyperplasia without lower urinary tract symptoms; F17.210 Nicotine dependence, cigarettes, uncomplicated; Z71.6 Tobacco abuse counseling; Z79.899 Other long term (current) drug therapy; Z86.14 Personal history of Methicillin resistant Staphylococcus aureus infection
CPT/HCPCS: 36415; 36556; 51702; 71046; 72157; 74177; 80048; 80053; 81001; 83605; 83735; 83880; 84132; 84145; 84484; 85025; 85610; 85652; 85730; 86140; 87040; 87077; 87086; 87186; 87636; 93005; 93306; 96361; 96365; 96366; 96367; 96368; 99291

== ENCOUNTER → 2024-05-19 | Outpatient (CLI) | payer BC ==
--- NOTE | 2024-05-19 20:30 | MR ---
EXAMINATION TYPE: MR thoracic spine wo/w con DATE OF EXAM: 05/19/2024 COMPARISON: Prior MRI April 11, 2024 HISTORY: Hx of MRSA in T8 & T9 five years ago - Pt fell in March and got MRSA in [id number] on MRSA post treatment TECHNIQUE: Multiplanar, multisequence imaging of thoracic spine is performed without contrast FINDINGS: Spinal cord remains normal in course, caliber, and signal as it courses the thoracic spine. Persistent severe anterior wedging at T8 vertebra. Persistent increased T2 or STIR signal anterior t o the T9 and T10 vertebra sagittal image 6 with now increased T2 signal involving majority of the T9 vertebra and majority of the superior aspect of the T10 vertebra with some heterogeneous diminished T 1 signal and postcontrast enhancement at this level. Some enhancement of the endplates and possible d isc is noted sagittal image 17. No large disc herniations. No definitive new thick-walled focal fluid collection or abscess. IMPRESSION: Spread of abnormal edema and enhancement from prior MRI now involving a majority of the T 9 vertebra and superior half of the T10 vertebra. Persistent abnormal findings seen anterior to this . Findings are consistent with discitis/osteomyelitis and adjacent anterior inflammatory change.
== END | disposition home or self-care (01) ==
LOC: RADMRIMAIN 18:49
PROVIDERS: ATTEND Internal Medicine Infectious Disease
DX: R60.9 Edema, unspecified (principal); G06.1 Intraspinal abscess and granuloma
CPT/HCPCS: 72157; A9585

== ENCOUNTER → 2024-07-21 | Outpatient (CLI) | payer BC ==
--- NOTE | 2024-07-21 11:02 | MR ---
EXAMINATION TYPE: MR thoracic spine wo/w con DATE OF EXAM: 07/21/2024 10:43 AM CLINICAL INDICATION: Male, 64 years old with history of G06.1 INTRASPINAL ABSCESS AND GRANULOMA; PHH, F/U abscess treatment T9-10 COMPARISON: No priors. TECHNIQUE: Multi planar, multi sequence imaging was performed utilizing: T1-weighted, short-tau inver olivia recovery and T2-weighted of the thoracic spine. IV Contrast: 7 cc Gadavist (none if empty) FINDINGS: Alignment: Alignment is within normal limits. There is increased kyphotic alignment due to compressio n deformity of T8 with complete height loss anteriorly. Spinal cord: Spinal cord is within normal limits for signal. Discs: Intervertebral disc signal is maintained. No evidence of significant spinal canal or neural fo raminal stenosis. There is no evidence of extradural defects or central spinal canal narrowing at any thoracic vertebral body level Osseous structures: Bony edema within the T9 vertebrae anteriorly. Complete height loss of T8 vertebr ae anteriorly. There remains postcontrast enhancement of the T9 and to a lesser extent T10 vertebrae. Enhancement has improved slightly. Findings were new along the disc space on 05/19/2024 and not seen on 04/11/2024. Fluid collection that was thought to be seen on 04/11/2024 anterior to the T9-T10 verteb ral bodies is no longer visualized. Multilevel osteophyte formation and facet joint arthropathy. Scat tered disc space narrowing. IMPRESSION: 1. Minimal decrease in postcontrast enhancement at T9-T10 disc level. No abnormal fluid collection a nterior to the vertebral bodies. 2. No evidence for significant spinal canal stenosis. 3. Kyphotic spinal alignment similar to multiple priors due to complete height loss anteriorly of T8 vertebral body.
== END | disposition home or self-care (01) ==
LOC: RADMRIMAIN 08:35
PROVIDERS: ATTEND Internal Medicine Infectious Disease
DX: G06.1 Intraspinal abscess and granuloma (principal); M51.34 Other intervertebral disc degeneration, thoracic region
CPT/HCPCS: 72157; A9585